=== PATIENT | female | born 1950 | race Hispanic/Latino ===

== ENCOUNTER 2017-06-26 08:08 | Inpatient (IN) | payer OTHER ==
[2017-06-26] MEDS ORDERED: Bupivacaine HCl 0.5%/Epinephrine 1:200,000/PF 30 ml Vial ONE (10:31)
[2017-06-26] MEDS ORDERED: Isosulfan Blue 50 MG/5 ML VIAL ONE (10:31)
[2017-06-26] MEDS ORDERED: Fentanyl 100 MCG/2 ML VIAL ONE (11:43)
[2017-06-26] MEDS ORDERED: Famotidine/PF 20 mg/2ml Vial ONE (11:43)
[2017-06-26] MEDS ORDERED: Ondansetron HCl/PF 4 MG/2 ML Vial ONE ×3 (11:43→11:55)
[2017-06-26] MEDS ORDERED: Dexamethasone 20 MG/5 ML VIAL ONE (11:55)
[2017-06-26] MEDS ORDERED: Ketorolac Tromethamine 30 MG/ML VIAL ONE (11:55)
[2017-06-26] MEDS ORDERED: Lidocaine 1% PF 5 ML VIAL ONE (11:55)
[2017-06-26] MEDS ORDERED: ePHEDrine/0.9% NaCl/PF SYRINGE 50 mg/10 ml ONE (11:55)
[2017-06-26] MEDS ORDERED: PHENYLEPHRINE-NS 100 MCG/ML 10 ML SYRINGE ONE (11:55)
[2017-06-26] MEDS ORDERED: Propofol 200 MG/20 ML VIAL ONE (11:55)
--- NOTE | 2017-06-26 13:16 | NM ---
RIGHT BREAST LYMPHOSCINTIGRAPHY: HISTORY: Malignant neoplasm of unspecified site of right female breast. TECHNIQUE: Right breast lymphoscintigraphy was performed following the right periareolar injection of 400 nithya curies of technetium 99m filtered sulfur colloid. Imaging of the neck, chest, and axillae, in the a nterior and lateral projections, was performed. FINDINGS: No tracer localization is noted in the axillary or internal mammary lymph nodes on either side. IMPRESSION: Nonvisualization of sentinel lymph node(S). POS: [facility]
[2017-06-26] MEDS ORDERED: Promethazine HCl 25 MG/ML VIAL SLOW IVP PRN (14:41)
[2017-06-26] MEDS ORDERED: HYDROmorphone 2 MG/ML VIAL SLOW IVP PRN (14:41)
[2017-06-26] MEDS ORDERED: Ondansetron HCl/PF 4 MG/2 ML Vial IVP PRN ×2 (14:41→16:39)
[2017-06-26] MEDS ORDERED: Meperidine HCl/PF 25 MG/ML VIAL SLOW IVP PRN (14:41)
[2017-06-26] MEDS ORDERED: Promethazine HCl 25 MG/ML VIAL ONE (14:54)
[2017-06-26] MEDS ORDERED: Dextrose 5% in Water 1,000 ML IV PRN (16:39)
[2017-06-26] MEDS ORDERED: Morphine Sulfate 2 MG/ML SYRINGE SLOW IVP PRN (16:39)
[2017-06-26] MEDS ORDERED: HYDROcodone/Acetaminophen 7.5/325 mg Tablet PO PRN ×2 (16:39)
[2017-06-26] MEDS ORDERED: Dextrose 50% Abboject 50 ML SYRINGE SLOW IVP PRN (16:39)
[2017-06-26] MEDS ORDERED: Promethazine HCl 25 MG/ML VIAL IM PRN (16:39)
[2017-06-26] MEDS: D5 1/2 NS w/20 mEq KCL 1,000 ML IV SCH (17:09)
[2017-06-26 17:57] VITALS: BMI 31.7
[2017-06-26] MEDS: Docusate 100 MG CAP PO SCH (21:41)
[2017-06-26] MEDS: Famotidine 20 MG TAB PO SCH (21:41)
[2017-06-27] MEDS: D5 1/2 NS w/20 mEq KCL 1,000 ML IV SCH (05:43)
[2017-06-27 06:25] LABS: #Lymphocytes 1.2 thou/uL (1.20-3.40); #Monocytes 0.6 thou/uL (0.11-0.59); #Neutrophils 9.1 thou/uL (1.40-6.50); %Basophils 0.1 % (0.0-1.0); %Lymphocytes 10.7 % (21.0-51.0); %Monocytes 5.8 % (0.0-10.0); Mean Platelet Volume 9.2 fL (7.4-10.4); Red Blood Cell (RBC) Count 3.35 mill/uL (4.20-5.40); White Blood Cell (WBC) Count 10.9 thou/uL (4.8-10.8)
[2017-06-27 08:39] VITALS: BP 132/70; TEMP 98
[2017-06-27] MEDS: Docusate 100 MG CAP PO SCH (08:42)
[2017-06-27] MEDS: Famotidine 20 MG TAB PO SCH (08:42)
--- NOTE | 2017-06-28 12:44 | OP ---
DATE OF OPERATION: 06/26/2017 PREOPERATIVE DIAGNOSIS: Right breast cancer. POSTOPERATIVE DIAGNOSIS: Right breast cancer with inability to find sentinel lymph nodes. OPERATION PERFORMED: Right modified radical mastectomy. SURGEON: Felipe Head M.D. ANESTHESIA: General endotracheal. INDICATIONS: The patient is a 67-year-old female. She was diagnosed with a large easily p alpable right breast cancer. After discussing options, she elected to proceed with mastectomy and s entinel lymph node biopsy. She has undergone lymphoscintigraphy before surgery, but this did not re veal definite sentinel lymph nodes here. DESCRIPTION OF OPERATION: Informed consent was obtained. The patient taken to the operating room w here general endotracheal anesthesia was obtained with the patient in supine position. Right breast and axilla were prepped with ChloraPrep and draped in sterile fashion. A 3 mL of Lymphazurin was i nfiltrated in the periareolar subdermal tissue and the area was massaged for five minutes. Elliptic al incision was created over the right breast including the nipple areolar complex and extending lat erally towards the inferior axilla. Through this incision, the axilla was inspected with Neoprobe w ithout finding of any substantial increased radioactivity. Additional dissection was carried out mobilizing the lateral aspects of the upper and lower flaps in to the axilla. I again inspected with the Neoprobe and examined for blue dye and found essentially none. I, therefore, decided to proceed with a full axillary node dissection in continuity with the mastectomy. Flaps were raised superiorly and inferiorly. Dissection was carried down to the chest wall the medi al aspect and the breast was swept off of the chest wall in medial to lateral fashion. The lateral aspect of the pectoralis muscles dissection was carried superiorly to identify the axillary vein. O n the inferior aspect of the axillary vein, I identified both the thoracodorsal and long thoracic ne rves, these were carefully spared of any injury. All fatty and lymphatic tissue was swept out of th e axilla as inferiorly and in continuity with the mastectomy specimen. The specimen was tagged for orientation and submitted to pathology. Meticulous hemostasis was obtained within wound using elect rocautery. The wound was thoroughly irrigated and all irrigant was aspirated. Two separate #19 rou nd fluted drains were placed within the wound, one up within the axilla and one across the chest wal l. The drains were secured externally with 3-0 nylon suture. The mastectomy flaps were then tailor ed for optimum closure. 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 The wound was then closed in la yers with 3-0 Vicryl and skin elin. Xeroform gauze was placed externally followed by fluffed gau ze and Jose Elias wrap dressing. There were no complications. The patient tolerated the procedure well an d was taken to recovery in stable condition.
--- NOTE | 2017-06-29 22:32 | PQF ---
Kecia De Los Santos YUDI RODGERS MANAGER PROFESSIONAL DEVELOPMENT [id number] CLINICAL DOCUMENTATION CLARIFICATION FORM: POST DISCHARGE Addendum to original discharge summary date: ____ Late entry note date: __ Query date: 06/29/17 In the impression of the pathology report, 11/21 LYMPH NODES POSITVE _ is documented. QUERY: Do you agree with the pathology report specifying ? Please document your response in the health record or below. Yes No Other Physician/Provider response: Condition not applicable No additional documentation or clarification can be provided. Physician/Provider signature/date/time (This form is maintained as a part of the permanent medical record) 2014 [employer] All Rights Reserved RACHEL Schmidt, CCS [email or web address]
== END 2017-06-27 10:45 | disposition home or self-care (01) | DRG 583 ==
LOC: SDC 08:08 → SURG A 14:45
PROVIDERS: ADMIT Specialist; ATTEND Specialist
PROC: 0HTT0ZZ Resection of Right Breast, Open Approach (ICD-10-PCS; principal; 2017-06-26)
DX: C50.911 Malignant neoplasm of unspecified site of right female breast (principal)
CPT/HCPCS: 36415; 78195; 85025; 88309; 90471; 90732; A9541; G0009; J0131; J0670; J1100; J1885; J2001; J2405; J2550; J2704; J3010; Q9968; S0028

== ENCOUNTER 2017-07-26 09:08 | Outpatient (CLI) | payer OTHER ==
--- NOTE | 2017-07-26 10:18 | CT ---
CT CHEST WITH CONTRAST CT ABDOMEN WITH CONTRAST CT PELVIS WITH CONTRAST 07/26/17 HISTORY: Breast cancer. Recent mastectomy. Followup. COMPARISON: None. FINDINGS: Inferior lingula has a 5 mm nodule, series 3, image 30. There is an organoaxial volvulus which is ch ronic in nature with the entire stomach within the thoracic cavity through a large posterior diaphra gmatic hernia. There is some atelectatic change in the lung bases. Prior right mastectomy. Small seroma on the anterior chest wall. The sternum does not have a normal horizontal axis, likely congenital in nature with the craniad nury rnum left border lower than the right side. No suspicious lytic or blastic lesion of the skeleton. N o displaced rib fractures. Surgical clips in the right axilla. There is a small hypodensity posterior cortex interpole left kidney measuring 8 mm and fluid attenua tion. No hydronephrosis. Adjacent to the sigmoid colon, there are multiple diverticula with area of peripheral enhancement wh ich may represent lymph node or resolving infection such as diverticulitis, series 2, image 97. No dilated loops of large or small bowel. Pancreas, spleen, and liver are unremarkable. Prior cholec ystectomy. The aortoiliac contour is nonaneurysmal. Superficial soft tissues are unremarkable. Small granuloma of the right posterior buttocks. IMPRESSION: 1. 5 mm nodule inferior lingula. Given the patient's history, metastatic disease cannot be excl uded and followup CT in 3-6 months is recommended. 2. Organoaxial volvulus, chronic, through a large diaphragmatic herniation. This is nonobstruct ed as contrast is seen throughout the small bowel. 3. Small seroma from mastectomy changes along the right anterior chest wall, series 2, image 29 . 4. Small either lymph node or focal area of resolving inflammation along the sigmoid colon mese ntery, series 2, image 97 with adjacent diverticulum, may be sequela of recent infection such as div erticulitis or inflamed lymph node. Close attention on followup imaging is recommended. Code T POS: [facility]
[2017-07-26] MEDS ORDERED: Iopamidol 370 76% 100 ML VIAL ONE (13:40)
--- NOTE | 2017-07-26 14:03 | NM ---
BONE SCAN: COMPARISON: CT of the chest, abdomen, and pelvis 07/26/17. HISTORY: Right breast cancer. Evaluate for metastatic disease. TECHNIQUE: A whole body bone scan was performed after administration of 31.4 mCi of Technetium 99m-MDP. FINDINGS: Uptake is seen in both patella and in both feet likely secondary to degenerative change. No suspici ous areas of uptake are seen within the skeleton to suggest osseous metastatic disease. Soft tissue activity is unremarkable. IMPRESSION: No evidence of osseous metastatic disease. POS: [facility]
== END 2017-07-26 09:09 | disposition home or self-care (01) ==
LOC: CT 09:08
PROVIDERS: ATTEND Internal Medicine Hematology & Oncology
DX: C50.919 Malignant neoplasm of unspecified site of unspecified female breast (principal); K44.9 Diaphragmatic hernia without obstruction or gangrene; N63.0 Unspecified lump in unspecified breast
CPT/HCPCS: 71260; 74177; 78306; A9503

== ENCOUNTER 2017-08-09 13:29 | Outpatient (CLI) | payer OTHER ==
[2017-08-09 16:44] LABS: #Basophils 0.1 thou/uL (0.0-0.2); #Eosinphils 0.4 thou/uL (0.0-0.7); #Lymphocytes 2.5 thou/uL (1.20-3.40); #Monocytes 0.5 thou/uL (0.11-0.59); #Neutrophils 3.9 thou/uL (1.40-6.50); %Eosinophils 5.7 % (0.0-10.0); %Lymphocytes 33.8 % (21.0-51.0); %Monocytes 6.6 % (0.0-10.0); Hematocrit 38.4 % (36.0-47.0); Mean Platelet Volume 9.5 fL (7.4-10.4); Red Blood Cell (RBC) Count 3.95 mill/uL (4.20-5.40); White Blood Cell (WBC) Count 7.3 thou/uL (4.8-10.8)
[2017-08-09 16:58] LABS: Anion Gap 9 mmol/L (10-20); BUN (Urea Nitrogen) 15 mg/dL (9.8-20.1); Calc. Creatinine Clearance 0 mL/min (70-130); Calcium 9.2 mg/dL (7.8-10.44); Carbon Dioxide 30 mmol/L (23-31); Chloride 109 mmol/L (98-107); Estimated GFR-MDRD 79
== END 2017-08-09 13:30 | disposition home or self-care (01) ==
LOC: LABBT 13:29
PROVIDERS: ATTEND Specialist
DX: Z01.812 Encounter for preprocedural laboratory examination (principal); C50.911 Malignant neoplasm of unspecified site of right female breast
CPT/HCPCS: 80048; 85025

== ENCOUNTER → 2017-08-14 | Day surgery (SDC) | payer OTHER, SELFPAY ==
[2017-08-09 14:10] VITALS: BMI 32.5
[~2017-08-14] MED LIST: Bupivacaine/Epinephrine 0.25% 30 ML VIAL ONE; CEFAZOLIN/Water 2 GM/20 ML SYRINGE ONE; CYCLOPHOSPHAMIDE IVPB SCH; DEXAMETHASONE IVPB SCH; DOCEtaxel 140 MG in Sodium Chloride 0.9% 250 ML 250 ML IVPB SCH; Diprivan 40 ML ONE; Fentanyl 100 MCG/2 ML VIAL ONE; Lidocaine 1% (PF) 30 ML VIAL ONE; Lidocaine 2% PF 10 ML AMP (For Epidural Use) ONE; Midazolam HCl 2 mg/2 ml Vial ONE; ONDANSETRON HCL IVPB SCH; Propofol 200 MG/20 ML VIAL ONE; SODIUM CHLORIDE 0.9% IVPB SCH
--- NOTE | 2017-08-14 19:00 | RAD ---
INTRAOPERATIVE FLUOROSCOPIC SPOT IMAGES 08/14/17 Image total: 14 Fluoroscopic time: 0.10 seconds. Chemo dose: 2.38 mGy. FINDINGS: Submitted fluoroscopic images demonstrate wire placement within the left subclavian vein extending i nto the region of the right atrium. Subsequent images demonstrate placement of a left subclavian arie st wall port. Tip of the catheter is not included in the field of view but projects in the region of the cavoatrial junction. IMPRESSION: Intraoperative C-arm images for left subclavian chest wall port placement. The tip of the catheter i s not well seen. Recommend chest radiograph for further evaluation. POS: [facility]
--- NOTE | 2017-08-14 19:20 | RAD ---
SINGLE VIEW OF THE CHEST 08/14/17 INDICATION: Status post Mediport placement. FINDINGS: There is a left subclavian chest wall Mediport. Tip of the catheter is seen within the right atrium. There is a prominent opacity within the left lower lobe which may reflect volume loss from a large hiatal hernia. No pneumothorax is evident. No acute osseous abnormality is noted. IMPRESSION: 1. Left subclavian chest wall Mediport without evidence of a pneumothorax. 2. Opacity within the left lower lobe may reflect volume loss from a large hiatal hernia. POS: [facility]
--- NOTE | 2017-08-15 13:03 | OP ---
DATE OF PROCEDURE: 08/14/2017 PREOPERATIVE DIAGNOSIS: Breast cancer. POSTOPERATIVE DIAGNOSIS: Breast cancer. OPERATION PERFORMED: Placement of left subclavian vein standard sized power compatible MediPort. SURGEON: Felipe Head M.D. ANESTHESIA: Total intravenous anesthesia with local using 0.25% Marcaine with epinephrine. INDICATIONS: The patient is a 67-year-old female. She has right breast cancer for which s he has already undergone a mastectomy. She requires MediPort placement for continued chemotherapy. OPERATIVE PROCEDURE IN DETAIL: Informed consent was obtained. The patient taken to the operating r oom where total intravenous anesthesia was obtained with the patient in supine position. Left peric lavicular area was prepped with ChloraPrep and draped in sterile fashion. Local anesthetic was infi ltrated and a large gauge needle was passed in the clavicle and subclavian vein on the initial pass. Guidewire was passed through the needle and fluoroscopically confirmed to enter the superior vena cava. Additional local anesthetic was infiltrated and a transverse incision was created based on ne edle insertion site. Subcutaneous pocket was dissected. Introducer dilator was passed over the rodrigo dewire under fluoroscopic guidance and the guidewire was removed. Catheter was passed through the i ntroducer and the tip was positioned at the atriocaval junction. Catheter was trimmed to appropriat e length and secured to the locking hub of the MediPort. The port was secured to the pectoral fasci a with 2 interrupted sutures of 3-0 Prolene. The wound was closed in layers with 3-0 and 4-0 Monocr yl. The port was accessed and aspirated blood freely and was flushed with heparinized saline. Derm abond was placed externally. There were no complications. The patient tolerated the procedure well and was taken to recovery room in stable condition. Post-procedure chest x-ray documents good posi tion of the port and catheter.
== END ==
LOC: SDC 09:00
PROVIDERS: ATTEND Specialist
PROC: 0JH63WZ Insertion of Totally Implantable Vascular Access Device into Chest Subcutaneous Tissue and Fascia, Percutaneous Approach (ICD-10-PCS; principal; 2017-08-14)
DX: C50.911 Malignant neoplasm of unspecified site of right female breast (principal); R91.1 Solitary pulmonary nodule; Z17.0 Estrogen receptor positive status [ER+]; Z90.11 Acquired absence of right breast and nipple; Z90.49 Acquired absence of other specified parts of digestive tract
CPT/HCPCS: 71010; J1100; J1642; J2001; J2250; J2405; J2704; J3010; J7050; J9070; J9171

== ENCOUNTER 2017-09-04 10:18 | Day surgery (SDC) | payer OTHER ==
[2017-09-04] MEDS ORDERED: SODIUM CHLORIDE IVPB SCH (10:45)
[2017-09-04] MEDS ORDERED: ONDANSETRON IVP SCH (10:45)
[2017-09-04] MEDS ORDERED: [UNRECOGNIZED DRUG - OTHER] IVPB SCH (10:45)
[2017-09-04] MEDS ORDERED: ADMIXTURE FEE IVPB SCH ×2 (10:45)
[2017-09-04] MEDS ORDERED: [UNRECOGNIZED DRUG - OTHER] IVP SCH (10:45)
[2017-09-04] MEDS ORDERED: ADMIXTURE FEE IVP SCH (10:45)
[2017-09-04] MEDS ORDERED: DOCETAXEL IVPB SCH (10:45)
[2017-09-04] MEDS ORDERED: DEXAMETHASONE IVP SCH (10:45)
[2017-09-04] MEDS ORDERED: CYCLOPHOSPHAMIDE IVPB SCH (10:45)
[2017-09-04 11:17] VITALS: BP 115/67; TEMP 98.1
== END 2017-09-04 15:10 | disposition home or self-care (01) ==
LOC: ONC/OP 10:18
PROVIDERS: ATTEND Internal Medicine Hematology & Oncology
DX: Z51.11 Encounter for antineoplastic chemotherapy (principal); C50.411 Malignant neoplasm of upper-outer quadrant of right female breast; Z90.10 Acquired absence of unspecified breast and nipple; Z90.49 Acquired absence of other specified parts of digestive tract; Z17.0 Estrogen receptor positive status [ER+]
CPT/HCPCS: 96367; 96413; 96417; J1100; J2405; J7050; J9070; J9171

== ENCOUNTER 2017-09-07 12:58 | Outpatient (CLI) | payer OTHER ==
--- NOTE | 2017-09-07 15:28 | ULT ---
BILATERAL UPPER EXTREMITY VENOUS DUPLEX SONOGRAM: FINDINGS: Each internal jugular and subclavian vein and axillary vein are evaluated. There is good color and sp ectral doppler flow, compression, and augmentation. IMPRESSION: No sonographic evidence of DVT within either upper extremity. POS: [facility]
--- NOTE | 2017-09-07 15:51 | RAD ---
PA AND LATERAL CHEST XRAY: DATE: 09/07/17. HISTORY: Post MediPort catheter insertion. FINDINGS: Compared to the study on 08/14/17. FINDINGS: Left subclavian MediPort catheter is noted in place with the tip overlying the region of the cavoatri al junction. There is a large hiatal hernia again seen with atelectasis at the left lung base. The lungs are otherwise clear, no pneumothorax or pleural effusion is present. Surgical clips are seen i n the right axillary region, and there is a suggestion of right mastectomy. Vascular calcification s een in the thoracic aorta. No other findings. IMPRESSION: 1. Left subclavian MediPort catheter in place without evidence of a pneumothorax. 2. Large hiatal hernia with minimal atelectasis left lung base. POS: [facility]
== END 2017-09-07 12:59 | disposition home or self-care (01) ==
LOC: ULT 12:58
PROVIDERS: ATTEND Specialist
DX: C50.911 Malignant neoplasm of unspecified site of right female breast (principal); K44.9 Diaphragmatic hernia without obstruction or gangrene
CPT/HCPCS: 71020

== ENCOUNTER 2017-09-25 10:09 | Day surgery (SDC) | payer OTHER, SELFPAY ==
[2017-09-25] MEDS ORDERED: Sodium Chloride 0.9% 20 ML ONE (10:21)
[2017-09-25 10:34] VITALS: BP 118/91; TEMP 98.2
[2017-09-25] MEDS ORDERED: DOCEtaxel 140 MG in Sodium Chloride 0.9% 250 ML 250 ML IVPB SCH (11:00)
[2017-09-25] MEDS ORDERED: ONDANSETRON HCL IVPB SCH (11:00)
[2017-09-25] MEDS ORDERED: SODIUM CHLORIDE 0.9% IVPB SCH ×3 (11:00→11:15)
[2017-09-25] MEDS ORDERED: CYCLOPHOSPHAMIDE IVPB SCH (11:00)
[2017-09-25] MEDS ORDERED: Dexamethasone 10 MG in Sodium Chloride 0.9% 50 ML IVPB SCH (11:00)
[2017-09-25] MEDS ORDERED: ONDANSETRON IVPB SCH (11:15)
[2017-09-25] MEDS ORDERED: DEXAMETHASONE IVPB SCH (11:15)
== END 2017-09-25 14:09 | disposition home or self-care (01) ==
LOC: ONC/OP 10:09
PROVIDERS: ATTEND Internal Medicine Hematology & Oncology
DX: Z51.11 Encounter for antineoplastic chemotherapy (principal); C50.411 Malignant neoplasm of upper-outer quadrant of right female breast; Z17.0 Estrogen receptor positive status [ER+]; Z98.890 Other specified postprocedural states
CPT/HCPCS: 96367; 96413; 96417; A4216; J1100; J1642; J2405; J7050; J9070; J9171

== ENCOUNTER 2017-10-16 11:50 | Day surgery (SDC) | payer OTHER, SELFPAY ==
[2017-10-16] MEDS ORDERED: SODIUM CHLORIDE 0.9% IVPB SCH ×9 (12:00→12:15)
[2017-10-16] MEDS ORDERED: ONDANSETRON IVPB SCH ×2 (12:00→12:15)
[2017-10-16] MEDS ORDERED: Dexamethasone 10 MG in Sodium Chloride 0.9% 50 ML IVPB SCH (12:00)
[2017-10-16] MEDS ORDERED: DOCEtaxel 140 MG in Sodium Chloride 0.9% 250 ML 250 ML IVPB SCH (12:00)
[2017-10-16 12:06] VITALS: BP 107/67; TEMP 98.4
[2017-10-16] MEDS ORDERED: DEXAMETHASONE IVPB SCH (12:15)
[2017-10-16] MEDS ORDERED: CYCLOPHOSPHAMIDE IVPB SCH ×7 (12:15)
== END 2017-10-16 15:59 | disposition home or self-care (01) ==
LOC: ONC/OP 11:50
PROVIDERS: ATTEND Internal Medicine Hematology & Oncology
DX: Z51.11 Encounter for antineoplastic chemotherapy (principal); C50.411 Malignant neoplasm of upper-outer quadrant of right female breast; K57.92 Diverticulitis of intestine, part unspecified, without perforation or abscess without bleeding; K52.9 Noninfective gastroenteritis and colitis, unspecified; Z17.0 Estrogen receptor positive status [ER+]
CPT/HCPCS: 96367; 96413; 96417; J1100; J2405; J7050; J9070; J9171

== ENCOUNTER 2017-10-25 09:17 | Outpatient (CLI) | payer OTHER, SELFPAY ==
[2017-10-25] MEDS ORDERED: Iopamidol 370 76% 100 ML VIAL ONE (16:26)
== END 2017-10-25 09:18 | disposition home or self-care (01) ==
LOC: BICCT 09:17
PROVIDERS: ATTEND Internal Medicine Hematology & Oncology
DX: C50.411 Malignant neoplasm of upper-outer quadrant of right female breast (principal); R91.8 Other nonspecific abnormal finding of lung field; K31.89 Other diseases of stomach and duodenum; K44.9 Diaphragmatic hernia without obstruction or gangrene; Z90.49 Acquired absence of other specified parts of digestive tract; Z90.11 Acquired absence of right breast and nipple
CPT/HCPCS: 71260

== ENCOUNTER 2018-03-13 12:23 | Outpatient (CLI) | payer OTHER, SELFPAY ==
[2018-03-13 13:55] LABS: #Eosinphils 0.2 thou/uL (0.0-0.7); #Lymphocytes 1.2 thou/uL (1.20-3.40); #Monocytes 0.3 thou/uL (0.11-0.59); #Neutrophils 3.3 thou/uL (1.40-6.50); %Basophils 0.2 % (0.0-1.0); %Eosinophils 4.6 % (0.0-10.0); %Lymphocytes 23.6 % (21.0-51.0); %Monocytes 6.7 % (0.0-10.0); %Neutrophils 64.9 % (42.0-75.0); Hemoglobin 12.4 g/dL (12.0-16.0); Mean Corpuscular HGB CONC 33.4 g/dL (32.0-36.0); Mean Corpuscular Hemoglobin 29.6 pg (27.0-31.0); Mean Corpuscular Volume 88.7 fl (81.0-99.0); Mean Platelet Volume 7.6 fL (7.4-10.4); Platelet Count 276 thou/uL (130-400); RBC Distribution Width 14.2 % (11.5-14.5); Red Blood Cell (RBC) Count 4.19 mill/uL (4.20-5.40); White Blood Cell (WBC) Count 5.1 thou/uL (4.8-10.8)
[2018-03-13 14:13] LABS: Anion Gap 11 mmol/L (10-20); BUN (Urea Nitrogen) 15 mg/dL (9.8-20.1); Calc. Creatinine Clearance 0 mL/min (70-130); Calcium 9.9 mg/dL (7.8-10.44); Carbon Dioxide 28 mmol/L (23-31); Chloride 105 mmol/L (98-107); Estimated GFR-MDRD 68; Glucose 92 mg/dL (80-115); Potassium 4.1 mmol/L (3.5-5.1); Sodium 140 mmol/L (136-145)
== END 2018-03-13 12:24 | disposition home or self-care (01) ==
LOC: LABBT 12:23
PROVIDERS: ATTEND Specialist
DX: Z01.812 Encounter for preprocedural laboratory examination (principal); K31.89 Other diseases of stomach and duodenum
CPT/HCPCS: 80048; 85025

== ENCOUNTER 2018-03-19 10:07 | Inpatient (IN) | payer OTHER, SELFPAY ==
[2018-03-13 13:30] VITALS: BMI 31.6
[2018-03-19] MEDS ORDERED: Ketorolac Tromethamine 30 MG/ML VIAL ONE ×2 (11:02→17:53)
[2018-03-19] MEDS ORDERED: Scopolamine 1.5 mg/72 hour Patch ONE (11:03)
[2018-03-19] MEDS ORDERED: CEFAZOLIN/Water 2 GM/20 ML SYRINGE ONE (11:03)
[2018-03-19] MEDS ORDERED: PHENYLEPHRINE-NS 100 MCG/ML 10 ML SYRINGE ONE (13:30)
[2018-03-19] MEDS ORDERED: Glycopyrrolate 0.2 MG/ML 5 ML SYRINGE ONE (13:30)
[2018-03-19] MEDS ORDERED: Succinylcholine Chloride 20 MG/ML 10 ml SYRINGE FS ONE (13:30)
[2018-03-19] MEDS ORDERED: ePHEDrine/0.9% NaCl/PF SYRINGE 50 mg/10 ml ONE (13:30)
[2018-03-19] MEDS ORDERED: Dexamethasone 20 MG/5 ML VIAL ONE (13:30)
[2018-03-19] MEDS ORDERED: PROPOFOL 200 MG/20 ML VIAL ONE (13:30)
[2018-03-19] MEDS ORDERED: Ondansetron HCl/PF 4 MG/2 ML Vial ONE (13:30)
[2018-03-19] MEDS ORDERED: Fentanyl 100 MCG/2 ML VIAL ONE (14:16)
[2018-03-19] MEDS ORDERED: HYDROmorphone 0.5 MG/0.5 ML SYRINGE ONE (14:16)
[2018-03-19] MEDS ORDERED: Bupivacaine/Epinephrine 0.25% 30 ML VIAL ONE (14:25)
[2018-03-19] MEDS ORDERED: Phenylephrine HCL 10 MG/ML VIAL ONE (16:56)
[2018-03-19] MEDS ORDERED: Promethazine HCl 25 MG/ML VIAL SLOW IVP PRN (17:41)
[2018-03-19] MEDS ORDERED: Ondansetron HCl/PF 4 MG/2 ML Vial IVP PRN ×2 (17:41→18:03)
[2018-03-19] MEDS ORDERED: Promethazine HCl 25 MG/ML VIAL IM PRN ×2 (17:41→18:03)
[2018-03-19] MEDS ORDERED: hydrALAZINE 20 MG/ML VIAL SLOW IVP PRN (18:03)
[2018-03-19] MEDS ORDERED: Morphine 4 MG/ML Carpuject SLOW IVP PRN (18:03)
[2018-03-19] MEDS: Ketorolac Tromethamine 30 MG/ML VIAL IVP SCH (19:03)
[2018-03-19] MEDS: Acetaminophen 1,000 MG in Premix Bag 1 BAG IVPB SCH (19:03)
[2018-03-19] MEDS: Famotidine/PF 20 mg/2ml Vial SLOW IVP SCH (21:25)
[2018-03-20] MEDS: Ketorolac Tromethamine 30 MG/ML VIAL IVP SCH ×3 (00:28→13:12)
[2018-03-20] MEDS: Acetaminophen 1,000 MG in Premix Bag 1 BAG IVPB SCH ×3 (00:29→13:12)
[2018-03-20] MEDS: D5 1/2 NS w/20 mEq KCL 1,000 ML IV SCH ×3 (00:29→09:46)
[2018-03-20] MEDS: Famotidine 20 MG TAB PO SCH ×2 (00:36→09:29)
--- NOTE | 2018-03-20 02:18 | OP ---
DATE OF OPERATION: 03/19/2018 PREOPERATIVE DIAGNOSIS: Large hiatal hernia with the entire stomach present within the mediastinum. POSTOPERATIVE DIAGNOSIS: Large hiatal hernia with the entire stomach present within the mediastinum OPERATION PERFORMED: A laparoscopic Kota fundoplication with repair of paraesophageal hiatal herni a. SURGEON: Felipe Head MD ANESTHESIA: General endotracheal. INDICATIONS: The patient is a 68-year-old female. She has imaging studies and endoscopy pe rformed recently, which shows a large hiatal hernia with the entire stomach present within the medias tinum. She was taken to the operating room at this time for repair. DESCRIPTION OF OPERATION: Informed consent was obtained. The patient was taken to the operating catherine m where general endotracheal anesthesia was obtained with the patient in supine position. Legs were split. Abdomen was prepped with ChloraPrep and draped in sterile fashion between the patient's legs during the course of the operation. Local anesthetic was infiltrated and a 5-mm supraumbilical incision was created through which a Veress needle was passed via the peritoneal cavity. Pneumoperi toneum established using carbon dioxide up to a pressure of 15 mmHg. A 5-mm trocar was passed throug h this same incision. Laparoscopic camera was passed through this port. Under direct vision, 4 kitty tional ports were placed including bilateral subcostal 5-mm ports, 11-mm left epigastric port, and a 5-mm right epigastric port. Beatty snake retractor was passed in the abdomen and used to elevate the left lobe of the liver usi ng the Amos's arm. The hiatus was examined and the entire stomach was present up within the medias tinum. It was mobile and I was able to grasp this and reduce the hernia contents. There was also ex tensive omentum and a very large and complex hernia sac presented on both the right and left mediasti num. I began my dissection on the lesser curve by incising the pars flaccida. Dissection was carried down onto the right cas. Dissection was then carried along the cas to mobilize the hernia sac medially . Dissection was then carried anteriorly along the hiatus again mobilized in the hernia sac. Along the left-hand side, the anatomy was much more complex. I, therefore, decided to take down the upper third of the greater curvature using the LigaSure device. I then mobilized adhesions away from the l eft cas. I was eventually able to identify the left cas and the left side of the hernia sac. The hernia sac was reduced from within the mediastinum using a combination of blunt and sharp dissection with the LigaSure. When this was completely reduced, the hernia sac was excised in its entirety and removed from within the abdomen. The herniated omental tissue was excised as well. I was able to perform a retroesophageal dissection and place a Enfield drain. I was able to complete ly mobilize the esophagus from up in the mediastinum. The left pleura was incised in order to facili kirby mobilization. The Enfield drain was used to retract the esophagus and stomach. Both crura were carefully and clearly dissected. The hiatus was closed with 3 interrupted sutures of 0 Bralon placed with the EndoStitch device. This was done after a #50 bougie was easily passed down into the stomach. The closure was appropriately snug around the esophagus. The fundus of the stomach was then passed through the large retroesophageal window. A floppy wrap wa s constructed by placing 3 sutures of 0 Bralon between the fundus that was wrapped around the stomach and the anterior fundus on the left side. The bottom and the superior sutures also incorporated bit es of the anterior esophagus. The wrap was very loose. I then fixated the wrap with three additional sutures of 0 Bralon, placing collar sutures between the wrap and the hiatus at the 10:30 in the 1:30 radians and a posterior gastropexy between the posterio r wrap and the crural closure posteriorly. The wrap was intact and of excellent confirmation. There has never been any blood loss during the co urse of the operation. There were no complications. Both the gastric reduction into the abdomen and the curl approximation was performed a tension-free. The fascia at the 11-mm port site was closed with 0 Vicryl suture using a GraNee needle. The area wa s irrigated. All irrigant was aspirated. The snake retractor was removed. All ports and instrument s were removed under direct vision. Pneumoperitoneum was carefully evacuated. A 0.25% Marcaine with epinephrine was infiltrated at each port site. Skin edges approximated with 4-0 Monocryl subcuticul ar suture. Dermabond was placed externally. There were no complications. The patient tolerated the procedure well and was taken to recovery room in stable condition.
[2018-03-20 04:20] LABS: #Lymphocytes 0.7 thou/uL (1.20-3.40); #Monocytes 0.4 thou/uL (0.11-0.59); #Neutrophils 9.1 thou/uL (1.40-6.50); %Eosinophils 0.1 % (0.0-10.0); %Lymphocytes 6.7 % (21.0-51.0); %Monocytes 3.4 % (0.0-10.0); %Neutrophils 89.8 % (42.0-75.0); Mean Corpuscular HGB CONC 33.1 g/dL (32.0-36.0); Mean Corpuscular Hemoglobin 29.9 pg (27.0-31.0); Mean Corpuscular Volume 90.3 fl (81.0-99.0); Mean Platelet Volume 8.1 fL (7.4-10.4); Platelet Count 229 thou/uL (130-400); RBC Distribution Width 14.1 % (11.5-14.5); Red Blood Cell (RBC) Count 3.67 mill/uL (4.20-5.40); White Blood Cell (WBC) Count 10.2 thou/uL (4.8-10.8)
[2018-03-20 04:42] LABS: Anion Gap 12 mmol/L (10-20); BUN (Urea Nitrogen) 14 mg/dL (9.8-20.1); Calc. Creatinine Clearance 99 mL/min (70-130); Calcium 9.4 mg/dL (7.8-10.44); Carbon Dioxide 26 mmol/L (23-31); Chloride 103 mmol/L (98-107); Estimated GFR-MDRD 76; Glucose 195 mg/dL (80-115); Potassium 4.3 mmol/L (3.5-5.1); Sodium 137 mmol/L (136-145)
[2018-03-20] MEDS ORDERED: Enoxaparin Sodium 30 MG/0.3 ML SYRINGE SC SCH (09:00)
[2018-03-20] MEDS: Famotidine/PF 20 mg/2ml Vial SLOW IVP SCH (09:20)
[2018-03-20 12:03] VITALS: BP 115/77; TEMP 98
[2018-03-21] MEDS ORDERED: Enoxaparin Sodium 40 MG/0.4 ML SYRINGE SC SCH (09:00)
== END 2018-03-20 13:21 | disposition home or self-care (01) | DRG 328 ==
LOC: SDC 10:07 → SURG A 18:03
PROVIDERS: ADMIT Specialist; ATTEND Specialist
PROC: 0DV44ZZ Restriction of Esophagogastric Junction, Percutaneous Endoscopic Approach (ICD-10-PCS; principal; 2018-03-19)
PROC: 0BQT4ZZ Repair Diaphragm, Percutaneous Endoscopic Approach (ICD-10-PCS; 2018-03-19)
DX: K31.89 Other diseases of stomach and duodenum (principal); K44.9 Diaphragmatic hernia without obstruction or gangrene; Z85.3 Personal history of malignant neoplasm of breast; Z90.11 Acquired absence of right breast and nipple; Z86.010 Personal history of colon polyps
CPT/HCPCS: 36415; 80048; 85025; J0131; J1100; J1170; J1642; J1885; J2370; J2405; J2704; J3010; S0028

== ENCOUNTER 2018-04-23 08:39 | Outpatient (CLI) | payer OTHER ==
--- NOTE | 2018-04-23 10:37 | CT ---
CT CHEST WITH CONTRAST: CLINICAL HISTORY: Breast cancer restaging. COMPARISON: Comparison is made to prior CT 07/26/17. FINDINGS: The previously documented 5 mm lingular nodule is grossly stable. There has been development of a re gion of consolidation at the posteromedial right lower lobe which contains air bronchograms. Prior c ystic lesion of this region has progressed in volume approximately 2.2 cm in size with a meniscal flu id level. This may relate to a pneumatocele, although other etiologies for cavitary lesion are not e xcluded. There is newly developed subpleural ground-glass density of the anterior right chest, likel y radiation pneumonitis. Inferiorly at the anterior chest there is a newly developed cystic lesion o f the anterior right lung which may relate to an additional pneumatocele versus other cavitary lesion . No evidence of significant pleural fluid or pneumothorax. There are nonspecific borderline-sized mediastinal lymph nodes, without evidence of pathologic enlargement. Surgical clips of the right axi lla are present. There has been interval surgical correction of prior hiatal hernia with metallic cl ips at the left upper central abdomen. No acute osseous abnormality. Stable left renal cyst is inci dentally noted. IMPRESSION: 1. Stable 5 mm lingular nodule. 2. Size progression of a cystic lesion of the posteromedial right lung which contains a meniscal flu id level, surrounded by a newly developed consolidation that contains air bronchograms. This may be on the basis of an area of radiation pneumonitis with associated pneumatocele versus infectious/infla mmatory process. There is an additional newly developed cystic lesion of the anterior and inferior r ight lung adjacent findings compatible with radiation pneumonitis. This may reflect an additional si te of pneumatocele. For the cystic lesions, recommend continued imaging followup, as a conservative measure at which time the 5 mm lingular nodule may also be reimaged. A 6-month followup would be joey sonable. POS: [facility]
[2018-04-23] MEDS ORDERED: Iopamidol 370 76% 100 ML VIAL ONE (12:27)
== END 2018-04-23 08:40 | disposition home or self-care (01) ==
LOC: CT 08:39
PROVIDERS: ATTEND Internal Medicine Hematology & Oncology
DX: C50.919 Malignant neoplasm of unspecified site of unspecified female breast (principal); R91.1 Solitary pulmonary nodule
CPT/HCPCS: 71260; 82565

== ENCOUNTER 2018-06-26 10:28 | Outpatient (CLI) | payer OTHER | END 2018-06-26 10:29 | disposition home or self-care (01) | LOC: BICMAMMO 10:28 | PROVIDERS: ATTEND Specialist | DX: Z08 Encounter for follow-up examination after completed treatment for malignant neoplasm (principal); R92.1 Mammographic calcification found on diagnostic imaging of breast; Z85.3 Personal history of malignant neoplasm of breast | CPT/HCPCS: G0279 ==

== ENCOUNTER 2018-09-03 13:00 | Outpatient (CLI) | payer OTHER ==
--- NOTE | 2018-09-03 17:44 | CT ---
CT OF THE THORAX WITH IV CONTRAST: 09/03/18 INDICATION: Followup pulmonary nodule with history of breast cancer and right mastectomy. COMPARISON: Prior CT of thorax dated 04/23/18, 10/25/[address] of the chest, abdomen and pelvis dated 07/26/17. FINDINGS: The previously seen 5 mm lingular pulmonary nodule is stable. Air space consolidation of the right lo wer lobe is improved. There is some residual bronchiectasis and subsegmental atelectasis within the m edial right lower lobe. The hiatal hernia and chronic appearing changes of a prior fundoplication are again noted. No new pulmonary nodules evident. Postsurgical changes of the right mastectomy and left chest wall port is in place. The vascular calcifications involving the coronary arteries and thoraci c aorta is similar appearing. Adrenal glands are normal appearing. There is mild fatty infiltration o f the liver. Spleen and visualized pancreas are unremarkable. IMPRESSION: There is diffuse osteopenia. There is scattered degenerative and osteoarthritic change. IMPRESSION: 1. Stable 5 mm lingular pulmonary nodule to a comparison examination dated 07/26/17. 2. Resolution of previously seen consolidation of the right lower lobe on the comparison CT eval uation dated 04/23/18. Residual area of subsegmental atelectasis and bronchiectasis remain within the right lower lobe. 3. Stable postsurgical change of prior fundoplication. Stable postsurgical change of prior shreya cystectomy. 4. Fatty liver. 5. Right mastectomy and left chest wall port. POS: [facility]
== END 2018-09-03 13:01 | disposition home or self-care (01) ==
LOC: CT 13:00
PROVIDERS: ATTEND Internal Medicine Critical Care Medicine
DX: J47.9 Bronchiectasis, uncomplicated (principal); R91.8 Other nonspecific abnormal finding of lung field; R91.1 Solitary pulmonary nodule; J98.11 Atelectasis; K76.0 Fatty (change of) liver, not elsewhere classified; Z98.890 Other specified postprocedural states; Z90.11 Acquired absence of right breast and nipple; Z90.49 Acquired absence of other specified parts of digestive tract; Z95.9 Presence of cardiac and vascular implant and graft, unspecified
CPT/HCPCS: 71260; 82565

== ENCOUNTER 2019-06-27 10:16 | Outpatient (CLI) | payer OTHER ==
--- NOTE | 2019-06-27 11:05 | MMO ---
Left Breast MAMMO Unilat Diag DDI LT+[place]. CLINICAL HISTORY: Patient is 69 years old and is seen for diagnostic exam. The patient has no family history of breast cancer. The patient has a history of right Mastectomy in June, - malignant. VIEWS: The views performed were: left craniocaudal with tomosynthesis; left mediolateral oblique with tomosynthesis; and left mediolateral with tomosynthesis. FILMS COMPARED: The present examination has been compared to prior imaging studies performed at [facility] on 06/26/2018, and at [facility] on 05/14/2017. This study has been interpreted with the assistance of computer-aided detection. MAMMOGRAM FINDINGS: There are scattered fibroglandular densities. There are benign appearing calcifications seen in the left breast. There are no suspicious masses, suspicious calcifications, or new areas of architectural distortion. IMPRESSION: THERE IS NO MAMMOGRAPHIC EVIDENCE OF MALIGNANCY. A ROUTINE FOLLOW-UP MAMMOGRAM IN 1 YEAR IS RECOMMENDED. THE RESULTS OF THIS EXAM WERE SENT TO THE PATIENT. ACR BI-RADS Category 2 - Benign finding MAMMOGRAPHY NOTE: 1. A negative mammogram report should not delay a biopsy if a dominant of clinically suspicious mass is present. 2. Approximately 10% to 15% of breast cancers are not detected by mammography. 3. Adenosis and dense breasts may obscure an underlying neoplasm. Reported by: JAMES AWAN MD Electonically Signed: [id number]
== END 2019-06-27 10:17 | disposition home or self-care (01) ==
LOC: BICMAMMO 10:16
PROVIDERS: ATTEND Specialist
DX: Z08 Encounter for follow-up examination after completed treatment for malignant neoplasm (principal); Z85.3 Personal history of malignant neoplasm of breast; Z90.11 Acquired absence of right breast and nipple
CPT/HCPCS: G0279

== ENCOUNTER 2019-07-20 20:22 | Inpatient (IN) | payer MEDICAID, SELFPAY ==
[2019-07-20 21:15] LABS: Bacteria/HPF None Seen HPF (None Seen); Bilirubin 1+ (Negative); Blood, Urine 1+ (Negative); Clarity Clear (Clear); Glucose, Urine (Dipstick) Normal (Negative); Leukocyte Negative Leu/uL (Negative); Nitrite Negative (Negative); Protein, Urine (Dipstick) Negative (Neg-Trace); Squamous Epithelial None Seen HPF (0-3); Urobilinogen Normal mg/dL (Less than 2); WBC/HPF 0-3 HPF (0-3)
[2019-07-20 21:17] LABS: ALT (SGPT) 183 U/L (8-55); AST (SGOT) 184 U/L (5-34); Albumin 3.8 g/dL (3.4-4.8); Alkaline Phosphatase 812 U/L (40-110); Anion Gap 14 mmol/L (10-20); BUN (Urea Nitrogen) 14 mg/dL (9.8-20.1); Bilirubin, Total 8.3 mg/dL (0.2-1.2); Calc. Creatinine Clearance 0 mL/min (70-130); Calcium 9.3 mg/dL (7.8-10.44); Carbon Dioxide 20 mmol/L (23-31); Chloride 103 mmol/L (98-107); Estimated GFR-MDRD 88; Globulin 3.6 g/dL (2.4-3.5); Glucose 119 mg/dL (80-115); Lipase 64 U/L (8-78); Potassium 4.2 mmol/L (3.5-5.1); Protein, Total 7.4 g/dL (6.0-8.3); Sodium 133 mmol/L (136-145)
[2019-07-20 21:22] LABS: #Basophils 0.1 thou/uL (0.0-0.2); #Eosinphils 0.5 thou/uL (0.0-0.7); #Lymphocytes 1.4 thou/uL (1.20-3.40); #Monocytes 0.5 thou/uL (0.11-0.59); #Neutrophils 4.6 thou/uL (1.40-6.50); %Basophils 0.9 % (0.0-1.0); %Eosinophils 7.3 % (0.0-10.0); %Lymphocytes 20.2 % (21.0-51.0); %Monocytes 6.8 % (0.0-10.0); %Neutrophils 64.7 % (42.0-75.0); Mean Corpuscular HGB CONC 33.4 g/dL (32.0-36.0); Mean Corpuscular Hemoglobin 32.8 pg (27.0-31.0); Mean Corpuscular Volume 98.2 fL (78.0-98.0); Mean Platelet Volume 10.9 fL (7.4-10.4); Platelet Count 250 thou/uL (130-400); RBC Distribution Width 13.3 % (11.5-14.5); Red Blood Cell (RBC) Count 3.35 mill/uL (4.20-5.40); White Blood Cell (WBC) Count 7.1 thou/uL (4.8-10.8)
--- NOTE | 2019-07-20 21:58 | CT ---
EXAM: Abdomen and pelvic CT scan with contrast: HISTORY: Abdominal pain, history of breast cancer nausea yellowing of skin COMPARISON: None FINDINGS: Vertically oriented linear parenchymal changes in the right lung base medially have a more chronic ap pearance. Liver: Markedly dilated common bile duct up to 1.9 cm with extensive intrahepatic ductal dilatation. There is also pancreatic ductal dilatation. Correlation with laboratory findings in this regard is suggested. Gallbladder:Status post cholecystectomy. Pancreas:No pancreatic mass but there is evidence for pancreatic ductal dilatation. Spleen:Unremarkable. Postop changes in the region of the fundus of the stomach and GE junction with some stomach extending above the level of the diaphragm. Adrenal glands:Unremarkable. Kidneys:No renal calculus or acute obstruction. Small left renal cyst. There are some generalized air-filled small bowel loops which are of the borderline size without evid ence for wall thickening or signs of obstruction possibly related to minimal ileus. No CT evidence for acute appendicitis. The urinary bladder is unremarkable. Reproductive system:Minimally nodular uterus possibly small fibroids. No abscess, adenopathy, or abnormal fluid collection within the abdomen or pelvis. IMPRESSION: Markedly dilated common bile duct and intrahepatic ducts as well as some dilatation of the pancreatic duct. Correlate with laboratory findings. Consider follow-up ERCP or MRCP. Minimal vertical parenchymal changes in the right base having more chronic appearance. Postoperative changes in the region of the GE junction. Other findings as above.
--- NOTE | 2019-07-20 23:08 | ULT ---
Exam: Right upper quadrant ultrasound: HISTORY: Pain COMPARISON: Abdomen and pelvic CT scan, 07/20/2019 FINDINGS: Marked dilatation of the common bile duct up to 1.6 cm with fairly extensive intrahepatic ductal dila tation. Pancreas region is obscured. Visualized right kidney is unremarkable. No focal liver mass. IMPRESSION: Marked dilatation of the common bile duct and intrahepatic ducts. Obscured pancreas.
[2019-07-20] MEDS ORDERED: Ondansetron PF 4 MG/2 ML Vial IVP PRN (23:43)
[2019-07-20] MEDS ORDERED: Sodium Chloride 0.9% 1,000 ML IV SCH (23:59)
--- NOTE | 2019-07-21 00:46 | PDOC.EVN ---
Event Note - Event Note Event Note: [id number] HP
--- NOTE | 2019-07-21 01:08 | HP ---
CHIEF COMPLAINT: Abdominal pain and jaundice. HISTORY OF PRESENT ILLNESS: Ms. De Los Santos is a 69-year-old female with past medical history of breast cancer on chemotherapy, cholecystectomy, presents to the emergency room with right upper quadrant abdominal pain, jaundice associated with nausea. Abdominal pain started a week ago. A couple of days later, the patient started having jaundice and dark urine. Workup in the emergency room including CT of the abdomen and right upper quadrant ultrasound showed dilated intrahepatic and common bile duct. The patient's bilirubin is elevated at 8.0. The patient has been admitted to hospital for further management. The patient denies fever, but she has been having chills. PAST MEDICAL HISTORY: Breast cancer, on chemotherapy. PAST SURGICAL HISTORY: 1. Cholecystectomy. 2. Colonoscopy. 3. Hernia repair. 4. Mastectomy. SOCIAL HISTORY: Denies smoking, alcohol drinking, or drug abuse. FAMILY HISTORY: Reviewed and noncontributory. ALLERGIES: NO KNOWN ALLERGIES. HOME MEDICATIONS: Please see home medication reconciliation form for updated medications. REVIEW OF SYSTEMS: Review of 14 systems negative except what is mentioned in the history of present illness. PHYSICAL EXAMINATION: GENERAL: The patient is awake, alert, in moderate distress. HEAD AND HEAD: Normocephalic, atraumatic. Icteric sclera. NECK: Supple. No JVD. CHEST: Fair bilateral air entry. HEART: S1, S2. Regular. ABDOMEN: Soft with epigastric and right upper quadrant tenderness. Bowel sounds present. NEUROLOGIC: Awake, alert, oriented x3. PSYCH: Normal mood. SKIN: Jaundice. LABORATORY DATA: CT abdomen and pelvis and right upper quadrant ultrasound as mentioned above in the history of present illness. CBC; WBC 7.1, hemoglobin 11, platelets 250. Sodium 133, potassium 4.2, BUN 14, creatinine 0.6, glucose 119, bilirubin is 8.3, AST is 184, ALT 183, alkaline phosphatase 112. ASSESSMENT: 1. Jaundice, ?obstructive. 2. Dilated intrahepatic and common bile duct. 3. Acute abdominal pain. 4. History of cholecystectomy. 5. Breast cancer on chemotherapy. PLAN: 1. Admit. 2. Keep the patient n.p.o. 3. IV fluids. 4. Consult GI in a.m., the patient may need MRCP or ERCP. 5. Reconcile home medications. 6. DVT prophylaxis, SCDs/early ambulation. 7. Expected length of stay two midnights or more. Job ID: [id number]
[2019-07-21 05:16] VITALS: BMI 31.8
[2019-07-21 05:38] LABS: ALT (SGPT) 173 U/L (8-55); AST (SGOT) 177 U/L (5-34); Albumin 3.6 g/dL (3.4-4.8); Alkaline Phosphatase 746 U/L (40-110); Anion Gap 13 mmol/L (10-20); BUN (Urea Nitrogen) 11 mg/dL (9.8-20.1); Bilirubin, Total 8.2 mg/dL (0.2-1.2); Calc. Creatinine Clearance 101 mL/min (70-130); Calcium 9.4 mg/dL (7.8-10.44); Carbon Dioxide 20 mmol/L (23-31); Chloride 106 mmol/L (98-107); Estimated GFR-MDRD 83; Globulin 3.4 g/dL (2.4-3.5); Glucose 95 mg/dL (80-115); Potassium 4.1 mmol/L (3.5-5.1); Sodium 135 mmol/L (136-145)
[2019-07-21 06:24] LABS: Band 4 % (5-11); Eosinophils 5 % (0-10); Lymphocytes 26 % (21-51); MDiff Complete? YES; Mean Corpuscular HGB CONC 33.4 g/dL (32.0-36.0); Mean Corpuscular Volume 98.6 fL (78.0-98.0); Mean Platelet Volume 10.9 fL (7.4-10.4); Monocytes 5 % (0-10); Neutrophil 60 % (42-75); Platelet Count 237 thou/uL (130-400); RBC Distribution Width 13.5 % (11.5-14.5); Red Blood Cell (RBC) Count 3.35 mill/uL (4.20-5.40); White Blood Cell (WBC) Count 6.7 thou/uL (4.8-10.8)
[2019-07-21] MEDS ORDERED: FLU VACC TS2019-20(65YR UP)/PF 180 MCG/0.5 ML SYRINGE IM ONE (09:00)
[2019-07-21] MEDS: Famotidine/PF 20 mg/2ml Vial SLOW IVP SCH ×2 (09:08→20:52)
[2019-07-21] MEDS: Dextrose 5 % And 0.9 % NaCl 1,000 ML IV SCH ×3 (11:45→21:05)
[2019-07-21] MEDS: Piperacillin/Tazobactam 3.375 GM in Sodium Chloride 0.9% 100 ML IVPB SCH ×3 (11:46→23:38)
[2019-07-21] MEDS ORDERED: Iothalamate Meglumine 60% 50 ML VIAL FS ONE (12:38)
[2019-07-21] MEDS ORDERED: Indomethacin 50 MG SUPP ONE ×2 (12:38→13:30)
[2019-07-21] MEDS ORDERED: Scopolamine 1.5 mg/72 hour Patch ONE (13:19)
[2019-07-21] MEDS ORDERED: Fentanyl 100 MCG/2 ML VIAL ONE (13:19)
[2019-07-21] MEDS ORDERED: Indomethacin 50 MG SUPP PR SCH (13:30)
--- NOTE | 2019-07-21 14:26 | CON ---
DATE OF CONSULTATION: 07/21/2019 REASON FOR CONSULTATION: Elevated liver function tests and abnormal GI imaging. CONSULTING PROVIDER: Tyra Du MD HISTORY OF PRESENT ILLNESS: The patient is a 69-year-old female with past medical history of breast cancer status post chemotherapy and radiation (finished both in December 2017) and possible gastroesophageal reflux disease presenting with complaints of right upper quadrant abdominal pain. She states that she was in her usual state of health until approximately 1 week ago, when she had the acute onset of increased right upper quadrant abdominal pain that has been progressively getting more frequent over the last week. She states that the pain is characterized as an aching type sensation, is intermittent, lasting for approximately 20 to 30 minutes when it does occur, will occur approximately 2 to 3 times a day in association with meals and reaches a severity of 4/10. The pain is worse primarily with eating or drinking. With the onset of pain within 10 to 15 minutes after eating and then follows a crescendo decrescendo pattern after that over the course of the next 20 to 30 minutes. She does not endorse any alleviating factors, except for the pain medication she has obtained here during the hospitalization. Associated symptoms included increased abdominal bloating, borborygmi, increased fatigue, itching and jaundice that she has been experiencing over the last week as well. Otherwise, she denies any nausea, vomiting, fevers, chills, hematemesis, melena, hematochezia, diarrhea, or constipation. Of note, when the patient was evaluated in the ER on admission, she was noted to have CT findings showing a markedly dilated common bile duct in addition to elevated LFTs concerning for possible obstruction of the biliary tree. She was then thusly admitted to the hospital for further management. REVIEW OF SYSTEMS: A 10-category review of systems was obtained with all responses negative except for the pertinent positives as listed in HPI. PAST MEDICAL HISTORY: Breast cancer status post chemotherapy and radiation and possible GERD. PAST SURGICAL HISTORY: Cholecystectomy, hernia repair, and mastectomy. FAMILY HISTORY: Denies any GI malignancies. SOCIAL HISTORY: Denies any tobacco, alcohol, or illicit drug use. OUTPATIENT MEDICATIONS: Reviewed. ALLERGIES: NO KNOWN DRUG ALLERGIES. PHYSICAL EXAMINATION: VITAL SIGNS: Temperature 98.3, pulse 67, blood pressure 105/69, respiratory rate 18, and saturating 97% on room air. GENERAL: The patient is lying in bed, in no acute distress. Alert and oriented x4. HEENT: Normocephalic and atraumatic. NECK: Supple. No JVD or scleral icterus noted. CARDIOVASCULAR: Regular rate and rhythm with no discernible murmurs, gallops, or rubs. RESPIRATORY: Clear to auscultation bilaterally with no discernible wheezes or rales. ABDOMEN: Normoactive bowel sounds. Soft and nondistended. Tenderness to palpation in the right upper quadrant as well as along the right mid flank. Otherwise, nontender to palpation. EXTREMITIES: No cyanosis, clubbing, or edema. LABORATORY DATA: CBC with a white blood cell count of 6.7, hemoglobin 11, hematocrit 33, and platelets 237. Chemistry with a sodium of 135, potassium 4.1, chloride 106, CO2 of 20, BUN 11, creatinine 0.7, glucose 95, AST 177, ALT 173, alkaline phosphatase 746, total bilirubin 8.2, and lipase 64. IMAGING DATA: CT of the abdomen and pelvis was obtained on July 20, 2019, which showed markedly dilated common bile duct at approximately 1.9 cm with intrahepatic dilatation. Pancreatic dilatation was also noted in addition to postoperative changes consistent with a cholecystectomy and possible postoperative changes in the gastric fundus. A right upper quadrant ultrasound was also obtained on July 20, 2019, which showed a dilated common bile duct up to 1.6 cm with extensive intrahepatic ductal dilatation. The pancreas was not observed during this examination. ASSESSMENT AND PLAN: The patient is a 69-year-old female with past medical history of breast cancer status post chemotherapy and radiation, and possible gastroesophageal reflux disease, presenting with abnormal gastrointestinal imaging and elevated LFTs concerning for biliary obstruction. Biliary obstruction: The patient is presenting with acute onset of increased right upper quadrant abdominal pain that has been present for the last week, following a crescendo decrescendo pattern in association with food intake and reaching a severity of 4/10. Upon evaluation here in the ER, she was noted to have elevated LFTs and obstructive-type pattern as well as a CT scan and right upper quadrant ultrasound showing significant dilation of the common bile duct greater than what would be expected for the patient post cholecystectomy. At this time, the differential could include ampullary stenosis, sphincter of Oddi dysfunction (less likely), retained gallstone (less likely), biliary stricture, cholangiocarcinoma, ampullary lesion or extrinsic compression of the common bile duct. Recommendations: 1. Would continue the patient on n.p.o. status. 2. Would continue with broad-spectrum antibiotics including Zosyn for biliary obstruction. 3. We will plan for endoscopic retrograde cholangiopancreatography later today for further evaluation of the biliary tree. 4. If the endoscopic retrograde cholangiopancreatography is negative for obvious pathology, would then consider magnetic resonance cholangiopancreatography for further evaluation of the surrounding structures and possible extrinsic compression of the common bile duct. We will continue to follow. Please call with any questions. Job ID: [id number]
[2019-07-21] MEDS ORDERED: Morphine Sulfate 2 MG/ML SYRINGE SLOW IVP PRN (15:57)
[2019-07-21] MEDS ORDERED: Ondansetron HCl/PF 4 MG/2 ML Vial IVP PRN (15:57)
[2019-07-21] MEDS ORDERED: Promethazine HCl 25 MG/ML VIAL IM PRN (15:57)
[2019-07-21] MEDS ORDERED: HYDROmorphone 2 MG/ML VIAL SLOW IVP PRN (15:57)
[2019-07-21] MEDS ORDERED: Meperidine HCl/PF 25 MG/ML VIAL SLOW IVP PRN (15:57)
[2019-07-21] MEDS ORDERED: Promethazine HCl 25 MG/ML VIAL SLOW IVP PRN (15:57)
[2019-07-21] MEDS ORDERED: Ketorolac Tromethamine 30 MG/ML VIAL IVP PRN (15:57)
[2019-07-21] MEDS ORDERED: PACU-Morphine 4MG/ML VIAL SLOW IVP PRN (15:57)
[2019-07-21] MEDS ORDERED: Ketorolac Tromethamine 30 MG/ML VIAL ONE (16:03)
[2019-07-21] MEDS ORDERED: Promethazine HCl 25 MG/ML VIAL ONE (16:19)
--- NOTE | 2019-07-21 17:01 | OP ---
DATE OF PROCEDURE: 07/21/2019 INDICATION FOR PROCEDURE: Abnormal liver function tests, probable biliary obstruction seen on imaging/abnormal GI imaging. DESCRIPTION OF PROCEDURE: After the risks and benefits of the procedure were explained to the patient including risks of infection, bleeding, perforation, reactions to anesthesia, aspiration, post ERCP pancreatitis, and/or pain, informed consent was obtained. The patient was then taken to the endoscopy suite, where general anesthesia with endotracheal tube intubation was performed by Anesthesia support. Once the patient was intubated and sedated, she was maneuvered into the prone position in anticipation of the ERCP. Once in adequate position, the standard duodenoscope was advanced into the mouth with intubation of the esophagus, stomach, and the proximal small intestines with the findings listed below. The patient tolerated the procedure well with no immediate perioperative complications. Upon conclusion of the procedure, all equipment was removed from the patient and she was transferred to PACU in satisfactory condition. FINDINGS: EGD findings: Limited views were obtained of the upper GI tract during this procedure due to the side-viewing nature of the scope of the limited views obtained. Normal-appearing mucosa was seen within the proximal, mid, and distal esophagus. A large amount of retained food was seen within the stomach, limiting visualization of the gastric mucosa significantly of the mucosa seen. There was no evidence of erosions, ulcerations, mass, lesions, or active/recent bleeding. Upon entry into the proximal small intestines, there was also a larger amount of retained food seen that did somewhat limit visualization. However, within the second portion of the duodenum, there was a large ulcerated and friable mass that was in the region surrounding the ampulla. The ampulla was not easily identified upon initial examination nor was easily identified during the course of this procedure at all. Multiple biopsies were taken from this region with biopsies placed in a specimen jar for evaluation. Otherwise, normal-appearing mucosa was seen within the duodenal bulb. ERCP findings: The duodenoscope was easily advanced to the second portion of the duodenum with some decreased visualization due to the amount of retained food within the stomach and proximal small intestines. However, the region around the ampulla showed a 4 x 2 cm ulcerated flat lesion/mass that appeared to affect the ampulla itself. In fact, the ampulla was not easily identified due to the presence of this mass and distortion of the anatomy. Upon manipulation of this mass with the sphincterotome, it immediately started to bleed, thereby limiting visualization even further. Multiple attempts were made to cannulate the common bile duct through the ampulla, and did have successful cannulation at one point of the pancreatic duct, but was ultimately unsuccessful. In fact, it was unclear if the pancreatic and common bile duct were still in continuity with each other at the ampulla of Vater given the anatomical distortion by the mass. Given unsuccessful attempts to cannulate the common bile duct, multiple biopsies were then taken from the lesion for further evaluation and all equipment was removed from the patient. IMPRESSION: 1. 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 2. Unsuccessful cannulation of the common bile duct secondary to distorted anatomy and inadequate visualization of the ampulla. 3. Successful cannulation of the pancreatic duct that showed a dilated pancreatic duct at approximately 5 mm. There was no evidence of stricture or stone. RECOMMENDATIONS: 1. Would continue the patient on n.p.o. status for now until percutaneous transhepatic cholangiostomy. 2. Would order a PTC for successful drainage of the biliary tree. 3. Would follow up on the biopsies with further management guided by pathology report. 4. Would consult the Oncology Service given the mass discovered today and possible need for treatment. 5. Would start the patient on cholestyramine 1 g b.i.d. for pruritus associated with hyperbilirubinemia. 6. Would continue broad-spectrum antibiotics for possible infection given this obstructive process. 7. Would monitor the patient for signs of post ERCP pancreatitis. 8. We will place the patient on IV fluids given n.p.o. status. We will continue to follow. Please call with any questions. Job ID: [id number] [facility]
[2019-07-22 05:47] LABS: #Lymphocytes 0.9 thou/uL (1.20-3.40); #Monocytes 0.2 thou/uL (0.11-0.59); #Neutrophils 5.3 thou/uL (1.40-6.50); %Basophils 0.4 % (0.0-1.0); %Eosinophils 0.3 % (0.0-10.0); %Lymphocytes 14.1 % (21.0-51.0); %Monocytes 3.1 % (0.0-10.0); %Neutrophils 82.1 % (42.0-75.0); Hemoglobin 10.9 g/dL (12.0-16.0); Mean Corpuscular HGB CONC 34.1 g/dL (32.0-36.0); Mean Corpuscular Hemoglobin 33.6 pg (27.0-31.0); Mean Corpuscular Volume 98.4 fL (78.0-98.0); Mean Platelet Volume 11.1 fL (7.4-10.4); Platelet Count 248 thou/uL (130-400); RBC Distribution Width 13.4 % (11.5-14.5); Red Blood Cell (RBC) Count 3.24 mill/uL (4.20-5.40); White Blood Cell (WBC) Count 6.5 thou/uL (4.8-10.8)
[2019-07-22 06:03] LABS: ALT (SGPT) 158 U/L (8-55); AST (SGOT) 136 U/L (5-34); Albumin 3.3 g/dL (3.4-4.8); Alkaline Phosphatase 728 U/L (40-110); Anion Gap 12 mmol/L (10-20); BUN (Urea Nitrogen) 14 mg/dL (9.8-20.1); Bilirubin, Direct 5.3 mg/dL (0.1-0.3); Calc. Creatinine Clearance 98 mL/min (70-130); Calcium 8.4 mg/dL (7.8-10.44); Carbon Dioxide 21 mmol/L (23-31); Chloride 108 mmol/L (98-107); Estimated GFR-MDRD 81; Glucose 162 mg/dL (80-115); Lipase 262 U/L (8-78); Magnesium 2.1 mg/dL (1.6-2.6); Protein, Total 6.7 g/dL (6.0-8.3); Sodium 137 mmol/L (136-145)
[2019-07-22] MEDS: Piperacillin/Tazobactam 3.375 GM in Sodium Chloride 0.9% 100 ML IVPB SCH ×4 (06:18→23:19)
[2019-07-22] MEDS ORDERED: Prevnar 13-Val Conj/PF 0.5 ML SYRINGE IM ONE (09:00)
[2019-07-22] MEDS: Famotidine/PF 20 mg/2ml Vial SLOW IVP SCH ×2 (09:32→22:00)
[2019-07-22] MEDS: Dextrose 5 % And 0.9 % NaCl 1,000 ML IV SCH ×3 (09:33→22:11)
[2019-07-22 10:31] LABS: PTT 26.8 SEC (22.9-36.1); Prothrombin Time 13.4 SEC (12.0-14.7)
[2019-07-22] MEDS ORDERED: Sodium Chloride 0.9% 100 ML ONE (11:55)
[2019-07-22] MEDS ORDERED: Piperacillin/Tazobactam 3.375 GM VIAL ONE (11:55)
[2019-07-22] MEDS ORDERED: Fentanyl 100 MCG/2 ML VIAL ONE (12:21)
[2019-07-22] MEDS ORDERED: Midazolam HCl 2 mg/2 ml Vial ONE (12:21)
[2019-07-22] MEDS ORDERED: PROPOFOL 20 ML ONE (13:47)
[2019-07-22 15:31] LABS: WBC/Nucleated-Auto (BF) 582 uL
--- NOTE | 2019-07-22 15:38 | SPC ---
EXAM: Percutaneous transhepatic cholangiogram and right external biliary drainage catheter placement PROVIDED CLINICAL HISTORY: A biliary mass with biliary ductal dilatation. A into the stent was unable to be placed at endoscopy. Placement of a percutaneous internal/external biliary drainage catheter was requested. Fluoroscopy: Time-12.6 minutes, total dose-115,064 mGy centimeter squared COMPARISON: None TECHNIQUE: The procedure including the risks and complications were explained to the patient and the patient's d aughter. After informed consent was obtained, the patient was placed on the angiography table in the supine position. The patient was administered Zosyn intravenously just prior to this examination. Limited sonographic evaluation of the left hepatic lobe demonstrates more centrally dilated intrahepatic ducts with smaller appearance of the left hepatic lobe. As result, an area in the mid ax illary line approximately the 11th intercostal space was marked, and the area was then meticulously prepped and draped in usual sterile fashion. [facility]. Skin and subcutaneous tissues were infiltrated with buffered 1% lidocaine for local anesthesia at the intended puncture site. A 22-gauge Chiba needle was advanced into the right hepatic lobe in the mid axillary line. The needle was withdrawn while injecting contrast. The bile duct was accessed on i nitial pullback of the needle, and a cholangiogram was performed. A second site just inferior to the initial needle puncture was infiltrated with buffered 1% lidocaine for local anesthesia. A second needle was placed, and a more peripheral right hepatic lobe bile duct was accessed. Injection of contrast confirmed placement in the bile duct. The needle was exchanged over a 0.018 inch guidewire for a 6 [place] AccuStick sheath with inner dilat or and stiff inner cannula. Distal portion catheter was positioned in the common duct. The inner dilator and stiff inner cannula as well as guidewire were removed with a return of bilious fluid. The guidewire was unable to be advanced into the small bowel. As result the introducer sheath was exchanged over the guidewire for a 5 [place] Berenstein catheter. The guidewire was exchanged for a 0. 035 inch Glidewire. Attempts at manipulating the catheter and Glidewire into the small bowel were unsuccessful. Contrast injection at the distal portion of the common duct also does not delineate con trast within the small bowel. As result, the catheter was exchanged over a 0.035 inch Amplatz guidewire for an 8 Gu[place]an tissue dilator followed by placement of an 8 [place]an cope loop all-purpose d rainage catheter. The tip of the catheter was positioned in the distal common duct. The pigtail on the catheter was not formed. The catheter was placed to gravity drainage and sutured in place utilizi ng 2-0 Ethilon suture material. A dry sterile dressing was placed. The patient tolerated the procedure well and without immediate complication. Patient was transported to postoperative holding in stable condition. IMPRESSION: 1. 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 Ther e is resultant severe intrahepatic biliary ductal dilatation involving the central ducts with mild to moderate dilatation of the more peripheral hepatic ducts. 2. Unsuccessful attempts at traversing the distal common duct obstruction and placement of an interna l/external biliary drainage catheter. 3. Technically successful placement of an 8 [place]an right external biliary drainage catheter with tip of the catheter in the distal common duct.
[2019-07-22 16:19] LABS: Body Fluid Source Abscess Fluid; Clarity Cloudy/Turbid (Clear)
[2019-07-22 16:20] LABS: BF Color Brown; RBC Count-Automated (BF) 100 /cumm; Tube # EDTA
[2019-07-22] MEDS: Cholestyramine/Aspartame 4 gm Packet PO SCH (22:46)
--- NOTE | 2019-07-22 23:23 | PRG ---
DATE OF SERVICE: 07/22/2019 REASON FOR CONSULTATION: Elevated liver function tests, abnormal GI imaging, mass seen on ERCP. SUBJECTIVE: This morning the patient underwent a percutaneous cholangiostomy drain with a goal of a possible internal/external drain. However, during the course of the procedure, they were not able to traverse the ampulla, but instead is now draining via percutaneous route. After the procedure, the patient states that she has had a significant improvement in her right upper quadrant abdominal pain and no longer feels the abdominal fullness that she had been experiencing over the last week. She also states that the increased itching has since discontinued as well and her hunger is returning with a vengeance. Otherwise, she currently denies any nausea, vomiting, fevers, chills, GI bleeding, diarrhea, or constipation. OBJECTIVE: VITAL SIGNS: Temperature 97.2, pulse 80, blood pressure 99/60, respiratory rate 16, saturating 98% on room air. GENERAL: The patient was lying in bed, in no acute distress. Alert and oriented x4 Z[place]ian-speaking primarily only. CARDIOVASCULAR: Regular rate and rhythm. RESPIRATORY: Clear to auscultation bilaterally. ABDOMEN: Normoactive bowel sounds. Soft, nondistended. Mild tenderness to palpation around the area of the percutaneous drain. EXTREMITIES: No cyanosis, clubbing, or edema. LABORATORY DATA: CBC with a white blood cell count of 6.5, hemoglobin 10.9, hematocrit 31.9, platelets 248. Chemistry with a sodium of 137, potassium 4, chloride 108, CO2 of 21, BUN 14, creatinine 0.72, glucose 162. AST 136, ALT 158, alkaline phosphatase 728, total bilirubin 7. IMAGING DATA: The patient underwent a percutaneous transhepatic cholangiostomy on July 22, 2019, with a successful placement of a right external biliary drain catheter. Attempts to place an internal/external drain were unsuccessful given the inability to pass a guidewire through the ampulla and past the obstructive mass. Installation of contrast in that region was also unsuccessfully not seen collecting within the small bowel indicating probable complete obstruction. ASSESSMENT AND PLAN: The patient is a 69-year-old female with past medical history of breast cancer status post chemotherapy and radiation in 2018, possible gastroesophageal reflux disease, who is presenting with an ampullary mass with resultant biliary obstruction. Biliary obstruction/ampullary mass. The patient initially presented with acute onset of right upper quadrant abdominal pain with abnormal LFTs and LFT showing a possible obstructive-type process. She subsequently underwent ERCP on July 21, 2019, which showed the presence of an approximate 4 x 2 cm lesion/mass that seems to be eroding into the small bowel wall as well as the periampullary region as well and evolving ampulla itself. Attempts to cannulate the common bile duct were unsuccessful. She ultimately underwent successful cholangiostomy placement on July 22, 2019, with significant reduction of her pain and is most likely decompressing this region at this time. Given the evidence on her CT scan, there does not seem to be any evidence of metastatic disease nor with the appearance on the ERCP, it did not appear to be significantly invasive, making the likelihood of metastatic disease lower. At this time, the patient may be a suitable candidate for surgical resection, but would most likely require a Whipple procedure, which should most likely be done at an institution with a higher volume of these types of procedures. Chemotherapy could also be considered in this patient as well, but would defer to Oncology for that evaluation. RECOMMENDATIONS: 1. We would continue the patient on broad-spectrum antibiotics including Zosyn for the biliary obstruction and recent placement of the PTC. 2. We have consulted the oncology service for evaluation of this patient for recommendations regarding surgical versus chemotherapy management of this ampullary lesion. 3. We would continue to trend the patient's LFTs for response to the PTC placement today and successful decompression of the biliary tree. 4. If surgical options are to be considered, we would transfer the patient to [place] either as an inpatient or outpatient for evaluation of a possible Whipple procedure. 5. We will follow up on the biopsy results hopefully with the pathology read coming back tomorrow. We will continue to follow. Please call with any questions again. Job ID: [id number]
[2019-07-23 05:21] LABS: #Eosinphils 0.2 thou/uL (0.0-0.7); #Lymphocytes 1.7 thou/uL (1.20-3.40); #Monocytes 0.4 thou/uL (0.11-0.59); #Neutrophils 5.1 thou/uL (1.40-6.50); %Basophils 0.5 % (0.0-1.0); %Eosinophils 2.2 % (0.0-10.0); %Monocytes 5.3 % (0.0-10.0); %Neutrophils 69.1 % (42.0-75.0); Hemoglobin 10.2 g/dL (12.0-16.0); Mean Corpuscular HGB CONC 33.8 g/dL (32.0-36.0); Mean Corpuscular Hemoglobin 33.7 pg (27.0-31.0); Mean Corpuscular Volume 99.5 fL (78.0-98.0); Mean Platelet Volume 10.8 fL (7.4-10.4); Platelet Count 206 thou/uL (130-400); RBC Distribution Width 13.6 % (11.5-14.5); Red Blood Cell (RBC) Count 3.03 mill/uL (4.20-5.40); White Blood Cell (WBC) Count 7.4 thou/uL (4.8-10.8)
[2019-07-23] MEDS: Piperacillin/Tazobactam 3.375 GM in Sodium Chloride 0.9% 100 ML IVPB SCH ×4 (05:27→23:10)
[2019-07-23 05:47] LABS: ALT (SGPT) 120 U/L (8-55); AST (SGOT) 74 U/L (5-34); Albumin 3.1 g/dL (3.4-4.8); Alkaline Phosphatase 564 U/L (40-110); Anion Gap 12 mmol/L (10-20); BUN (Urea Nitrogen) Less than 4 mg/dL (9.8-20.1); Bilirubin, Total 3.3 mg/dL (0.2-1.2); Calc. Creatinine Clearance 90 mL/min (70-130); Calcium 8.4 mg/dL (7.8-10.44); Carbon Dioxide 20 mmol/L (23-31); Chloride 110 mmol/L (98-107); Estimated GFR-MDRD 74; Glucose 106 mg/dL (80-115); Potassium 3.4 mmol/L (3.5-5.1); Protein, Total 6.1 g/dL (6.0-8.3); Sodium 139 mmol/L (136-145)
--- NOTE | 2019-07-23 08:29 | PDOC.HOSPP ---
- Subjective Encounter Date: 07/22/19 Encounter Time: 09:00 Subjective: Patient seen and examined for Obstructive jaundice. s/p ERCP. No new complaints. No overnight events - Objective Vital Signs & Weight: Vital Signs (12 hours) Temp Pulse Resp BP BP Pulse Ox 07/23/19 07:20 97.6 F 69 16 116/77 97 07/23/19 03:48 97.9 F 60 16 108/69 97 07/22/19 23:46 98.2 F 65 16 102/67 96 Weight Weight 180 lb I&O: 07/22/19 07/23/19 07/24/19 06:59 06:59 06:59 Intake Total 3202 4372 Output Total 150 Balance 3202 4222 Result Diagrams: 07/23/19 04:43 07/23/19 04:43 Additional Labs: Laboratory Tests 07/22/19 04:41 Total Bilirubin 7.0 H Direct Bilirubin 5.3 H AST 136 H ALT 158 H Alkaline Phosphatase 728 H Radiology Reviewed by me: Yes (RUQ USG - reviewed) Hospitalist ROS - Review of Systems Respiratory: denies: cough, dry, shortness of breath, hemoptysis, SOB with excertion, pleuritic pain, sputum, wheezing, other Cardiovascular: denies: chest pain, palpitations, orthopnea, paroxysmal noc. dyspnea, edema, light headedness, other - Medication Medications: Active Medications Generic Name Dose Route Start Last Admin Trade Name Freq PRN Reason Stop Dose Admin Cholestyramine Resin 4 gm 07/22/19 22:00 07/22/19 22:46 Questran Light PO 4 gm 1000,2200 RAJANI Administration Famotidine 20 mg 07/21/19 09:00 07/22/19 22:00 Pepcid SLOW IVP 20 mg Q12HR RAJANI Administration Piperacillin Sod/Tazobactam 100 mls @ 200 mls/hr 07/21/19 12:00 07/23/19 05: 27 Sod 3.375 gm/ Sodium Chloride IVPB 100 mls Q6HR RAJANI Administration Dextrose/Sodium Chloride 1,000 mls @ 125 mls/hr 07/21/19 10:45 07/22/19 22:11 D5 0.9% Ns IV 1,000 mls .Q8H RAJANI Administration Sodium Chloride 10 ml 07/22/19 21:00 07/22/19 22:00 Flush - Normal Saline IVF Not Given Q12HR RAJANI - Exam General Appearance: NAD Neck: supple, no JVD Heart: RRR, no gallops Respiratory: CTAB, no ronchi Gastrointestinal: soft, normal bowel sounds Extremities: no edema Hosp A/P - Plan DVT proph w/SCDs Obstructive jaundice with ampullary mass Obesity BMI 31.9 GERD h/o Breast Ca PLAN: Cont IV Zosyn External drain placement AM labs
[2019-07-23] MEDS ORDERED: Dextrose 5 % And 0.9 % NaCl 1,000 ML IV SCH (08:30)
[2019-07-23] MEDS ORDERED: Potassium Chloride 10 MEQ TAB PO SCH (08:30)
[2019-07-23] MEDS: Famotidine 20 MG TAB PO SCH ×2 (09:00→20:10)
[2019-07-23] MEDS: Cholestyramine/Aspartame 4 gm Packet PO SCH ×2 (09:01→21:08)
--- NOTE | 2019-07-23 12:04 | CON ---
DATE OF CONSULTATION: REASON FOR CONSULT: Ampullary mass. HISTORY OF PRESENT ILLNESS: Ms. 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 She is status post mastectomy, chemo and radiation. She presented to the ER with complaints of right upper quadrant pain for the past week. She was jaundice. In the emergency room, she underwent a CT scan of the abdomen. There was marked dilated common bile duct and intrahepatic ducts. Her bilirubin on arrival was 8.3 with elevated LFTs. GI was consulted and performed a percutaneous transhepatic cholangiostomy with placement of a right external biliary drain catheter. She did have an obstructive mass of the ampulla. Her bilirubin has improved since that time and currently at 3.3. She is eating without any complication. No pain. Biopsies were taken during the ERCP and are currently pending. PAST MEDICAL HISTORY: 1. Invasive ductal carcinoma of the right breast. 2. History of right lung cavitation secondary to inflammation and infection. PAST SURGICAL HISTORY: 1. Cholecystectomy. 2. Mastectomy. 3. Hernia repair. 4. MediPort placement. ALLERGIES: NO KNOWN DRUG ALLERGIES. HOME MEDICATION: Anastrozole 1 mg daily. FAMILY HISTORY: Her sister had an unknown type cancer. SOCIAL HISTORY: Single, lives with her children. No alcohol, tobacco, or illicit drug use. REVIEW OF SYSTEMS: A 10-point review of systems is negative. PHYSICAL EXAMINATION: VITAL SIGNS: Temperature 97.6, pulse is 69, respiratory rate 16, BP is 116/77, she is 97% on room air. GENERAL: Well-developed, well-nourished female, in no acute distress. HEENT: Normocephalic and atraumatic. Pupils are equal and reactive to light. NECK: Supple. CV: Regular rate and rhythm. LUNGS: Clear. ABDOMEN: Soft and nontender. Bowel sounds are positive. She has a drain to right upper quadrant with green drainage. EXTREMITIES: No clubbing, cyanosis, or edema. SKIN: Positive for mild jaundice. HEMATOLOGICAL: No petechiae or purpura. NEUROLOGICAL: Nonfocal. PSYCH: She is alert, oriented, and appropriate. PERTINENT LABS AND X-RAYS: Current WBCs are 7.7, hemoglobin 10.2, hematocrit 30.1, platelet count is 206,000, she has 69% neutrophils, 23% lymphocytes. PT 13.4, INR is 1.0, and PTT is 26.8. Sodium is 139, potassium 3.4, chloride 110, CO2 is 20 , BUN is less than 4, creatinine 0.78, calcium is 8.4, bilirubin 3.3, AST is 74, ALT is 120, alkaline phosphatase is 564. Serum total protein 6.1, albumin 3.1, globulin 3, lipase is 97. Urine is negative for bacteria. Radiology per HPI. ASSESSMENT: 1. Ampullary mass with obstructive jaundice, status post percutaneous drain placement. 2. History of breast cancer, currently on Arimidex. DISCUSSION: The patient's pathology is currently pending, however, likely to be positive for malignancy. If so, she will be referred for surgical opinion at [facility] in [place] for an opinion regarding surgical resection. She will follow up with Dr. Javier in the next week or so to discuss this further. She can be discharged once she is taking p.o. and she is cleared by GI. Thank you for the consult. Job ID: [id number] [email or web address]
--- NOTE | 2019-07-23 22:04 | PDOC.HOSPP ---
- Subjective Encounter Date: 07/23/19 Encounter Time: 10:30 Subjective: Patient seen and examined for jaundice. Feeling better. Mild nausea. No other complaints. No overnight events - Objective Vital Signs & Weight: Vital Signs (12 hours) Temp Pulse Resp BP BP Pulse Ox 07/23/19 19:40 98.1 F 73 16 107/71 96 07/23/19 16:09 98.6 F 67 14 112/72 97 07/23/19 12:15 97.9 F 66 16 118/75 96 Weight Weight 180 lb I&O: 07/22/19 07/23/19 07/24/19 06:59 06:59 06:59 Intake Total 3202 4372 1690 Output Total 150 750 Balance 3202 4222 940 Result Diagrams: 07/23/19 04:43 07/23/19 04:43 Hospitalist ROS - Review of Systems Respiratory: denies: cough, dry, shortness of breath, hemoptysis, SOB with excertion, pleuritic pain, sputum, wheezing, other Cardiovascular: denies: chest pain, palpitations, orthopnea, paroxysmal noc. dyspnea, edema, light headedness, other - Medication Medications: Active Medications Generic Name Dose Route Start Last Admin Trade Name Freq PRN Reason Stop Dose Admin Cholestyramine Resin 4 gm 07/22/19 22:00 07/23/19 21:08 Questran Light PO 4 gm 1000,2200 RAJANI Administration Famotidine 20 mg 07/23/19 09:00 07/23/19 20:10 Pepcid PO 20 mg BID RAJANI Administration Piperacillin Sod/Tazobactam 100 mls @ 200 mls/hr 07/21/19 12:00 07/23/19 17: 31 Sod 3.375 gm/ Sodium Chloride IVPB 100 mls Q6HR RAJANI Administration Sodium Chloride 10 ml 07/22/19 21:00 07/23/19 20:11 Flush - Normal Saline IVF Not Given Q12HR RAJANI - Exam General Appearance: NAD Neck: supple, no JVD Heart: RRR, no gallops Respiratory: CTAB, no wheezes, no ronchi Gastrointestinal: soft, non-tender, normal bowel sounds Extremities: no edema Hosp A/P - Plan DVT proph w/SCDs Obstructive jaundice with ampullary mass s/p ERCP and external drain Obesity BMI 31.9 GERD h/o Breast Ca PLAN: Cont IV Zosyn Await biopsy Change IVF to 1/2 NS AM labs
[2019-07-23] MEDS: Sodium Chloride 0.45% 1,000 ML IV SCH (23:15)
[2019-07-24] MEDS: Piperacillin/Tazobactam 3.375 GM in Sodium Chloride 0.9% 100 ML IVPB SCH ×4 (05:29→23:35)
[2019-07-24 07:15] LABS: ALT (SGPT) 99 U/L (8-55); AST (SGOT) 51 U/L (5-34); Albumin 3.3 g/dL (3.4-4.8); Alkaline Phosphatase 532 U/L (40-110); Anion Gap 12 mmol/L (10-20); BUN (Urea Nitrogen) 8 mg/dL (9.8-20.1); Calc. Creatinine Clearance 90 mL/min (70-130); Calcium 9.1 mg/dL (7.8-10.44); Carbon Dioxide 24 mmol/L (23-31); Chloride 108 mmol/L (98-107); Estimated GFR-MDRD 74; Globulin 3.3 g/dL (2.4-3.5); Glucose 88 mg/dL (80-115); Potassium 3.3 mmol/L (3.5-5.1); Protein, Total 6.6 g/dL (6.0-8.3); Sodium 141 mmol/L (136-145)
[2019-07-24] MEDS: Famotidine 20 MG TAB PO SCH ×2 (08:45→21:33)
[2019-07-24] MEDS: Cholestyramine/Aspartame 4 gm Packet PO SCH ×2 (10:35→21:33)
[2019-07-24] MEDS ORDERED: Potassium Chloride 20 MEQ TAB PO SCH (10:45)
--- NOTE | 2019-07-24 10:53 | PRG ---
DATE OF SERVICE: 07/24/2019 SUBJECTIVE: The patient is seen and examined at the bedside. Her daughter is present in the room during the visit. She does not have much complaints to offer. Some abdominal discomfort, but significantly improved. She tolerates her full liquid diet without any problem. OBJECTIVE: VITAL SIGNS: Blood pressure is 115/81, pulse is 67, temperature is 98.1, respiratory rate is 16, and O2 saturation is 97% on room air. HEENT: Head is atraumatic and normocephalic. Sclerae are somewhat icteric. Conjunctivae palish. Oral mucosa is moist. NECK: Supple. LUNGS: Breath sounds diminished at both bases. HEART: S1-S2, normal. No S3. No S4. ABDOMEN: Somewhat distended and tender in the epigastric area in the right side and the mid portion, and the drain is in place. Bowel sounds are present. EXTREMITIES: There is no clubbing or cyanosis. There is 1+ peripheral edema on both lower extremities, similar bilaterally. LABORATORY DATA: Labs showed white count of 7.4, hemoglobin 10.2, hematocrit 30.1, and platelet count is 206,000. Sodium of 141, potassium 3.4, chloride 108, CO2 of 24, BUN 8, and creatinine 0.78. Total bilirubin 3.0, AST 51, ALT 99, and alkaline phosphatase 532. Bacterial culture of bile aspirate and preliminary report showed few WBCs, no organisms, and no growth at 48 hours. 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 The patient is tolerating full liquid diet. We are going to advance her diet as tolerated after the case was discussed with Dr. Geller, her combination man. We will continue her Zosyn. We will stop her IV fluids, and she should be able to go home in the next 24 hours, if she tolerates the feeding. Job ID: [id number]
[2019-07-24] MEDS: Sodium Chloride 0.45% 1,000 ML IV SCH (17:59)
[2019-07-24] MEDS: traMADol HCl 50 MG TAB PO PRN (23:56)
[2019-07-25] MEDS: Piperacillin/Tazobactam 3.375 GM in Sodium Chloride 0.9% 100 ML IVPB SCH ×3 (05:17→17:41)
[2019-07-25] MEDS: traMADol HCl 50 MG TAB PO PRN (05:22)
[2019-07-25] MEDS: Famotidine 20 MG TAB PO SCH ×2 (08:32→21:06)
[2019-07-25] MEDS: Cholestyramine/Aspartame 4 gm Packet PO SCH ×2 (10:18→21:06)
--- NOTE | 2019-07-25 10:45 | PRG ---
DATE OF SERVICE: 07/25/2019 SUBJECTIVE: The patient is seen and examined at bedside. She complains of some nausea with her breakfast this morning. There was no any abdominal pain today, but she had pain in the right flank area yesterday. OBJECTIVE: VITAL SIGNS: Blood pressure is 115/64, pulse is 65, temperature is 97.8, respirations 16, and O2 saturation is 96% on room air. HEENT: Her head is atraumatic and normocephalic. Eyes; sclerae are showing some yellow discoloration. Oral mucosa is moist. NECK: Supple. LUNGS: Clear. HEART: S1 and S2 normal. No S3. No S4. ABDOMEN: The drain is in place. There is some epigastric discomfort in the deeper palpation. No guarding. No masses. EXTREMITIES: No clubbing, cyanosis, or edema. NEUROLOGIC: She follows my commands. She moves her all 4 extremities. LABORATORY DATA: None today. IMPRESSION: 1. Obstructive jaundice with ampullary mass, which is histopathologically adenocarcinoma, status post endoscopic retrograde cholangiopancreatography and external drain placement. 2. Hypokalemia. 3. Gastroesophageal reflux disease. 4. History of breast cancer. PLAN: Plan is to keep her on full liquid diet for lunch and if she does not have any nausea, we will advance her diet and if she tolerates that, she will be discharged home either tonight or tomorrow morning. We will continue her Zosyn. She will be switched to p.o. at the time of discharge. Job ID: [id number]
[2019-07-25] MEDS ORDERED: Acetaminophen 325 MG TAB PO PRN (11:40)
[2019-07-26] MEDS: Piperacillin/Tazobactam 3.375 GM in Sodium Chloride 0.9% 100 ML IVPB SCH ×3 (05:23→11:24)
[2019-07-26 07:34] VITALS: BP 105/67; TEMP 98.1
[2019-07-26] MEDS: Famotidine 20 MG TAB PO SCH (08:33)
[2019-07-26] MEDS: Cholestyramine/Aspartame 4 gm Packet PO SCH (10:25)
--- NOTE | 2019-07-26 15:46 | EKG ---
Test Reason : Blood Pressure : / mmHG Vent. Rate : 077 BPM Atrial Rate : 077 BPM P-R Int : 164 ms QRS Dur : 072 ms QT Int : 368 ms P-R-T Axes : 095 -22 000 degrees QTc Int : 416 ms Normal sinus rhythm Minimal voltage criteria for LVH, may be normal variant Abnormal ECG Confirmed by JENNY BLEVINS ([id number]), clinical editor VIRGILIO HUNTER ([id number]) on 07/26/2019 3:45:55 PM Referred By: Confirmed By:JENNY BLEVINS
--- NOTE | 2019-07-26 21:47 | DIS ---
DATE OF ADMISSION: 07/20/2019 DATE OF DISCHARGE: 07/26/2019 DIAGNOSES AT THE TIME OF DISCHARGE: 1. Obstructive jaundice with ampullary mass, which was histopathologically diagnosed as adenocarcinoma, poorly differentiated, status post endoscopic retrograde cholangiopancreatography and external drain placement. 2. Hypokalemia, resolved. 3. Gastroesophageal reflux disease. 4. History of breast cancer. CONSULTANTS: 1. Dr. Javier, Oncology Service. 2. Dr. Geller, Gastrointestinal Service. PROCEDURE PERFORMED: Unsuccessful cannulation of the common bile duct secondary to distorted anatomy and inadequate visualization of the ampulla and successful cannulation of the pancreatic duct, which showed a dilated pancreatic duct at approximately 5 mm without stricture or stone. Also, biopsies on large periampullary mass/lesion. HOSPITAL COURSE: The patient is a 69-year-old female, who was admitted to the hospital with abdominal pain and jaundice. Apparently, she has a history of breast cancer on chemotherapy, cholecystectomy. She had right upper quadrant abdominal pain and jaundice associated with some nausea, which started approximately 1 week ago. She noticed some dark urine. In the emergency room, workup showed CT scan of the abdomen with right upper quadrant ultrasound with findings of dilated intrahepatic and common bile duct, elevated bilirubin at 8.0. White count was 7.1, hemoglobin 11. Sodium 133, potassium 4.2, BUN 14, creatinine 0.8, glucose 119, bilirubin 8.3, AST 184, ALT 183, alkaline phosphatase 112. The patient was admitted to the hospital, placed on IV fluids. GI was consulted. The patient was seen by Dr. Geller for GI consultation. He recommended broad-spectrum antibiotic with Zosyn for biliary obstruction and endoscopic retrograde cholangiopancreatography for further evaluation of the biliary tree. The patient underwent ERCP which showed large periampullary mass/lesion, status post biopsies along with successful cannulation of the pancreatic duct which showed dilated pancreatic duct and successful cannulation of the common bile duct secondary to distorted anatomy and inadequate visualization of the ampulla. The patient was referred to interventional radiologist, who did a percutaneous transhepatic cholangiogram and right external biliary drainage catheter placement. This showed distal common duct obstruction secondary to an ampullary mass seen on prior CT exam and ERCP. Post drain placement, face was uneventful. The patient was started gradually on the diet. She tolerated diet. The pain in the abdomen and right flank improved to the point that she is able to go home at this point. She will stay on heart healthy diet. She will take levofloxacin 500 mg once a day for the next 7 days. She will follow up with Dr. Javier in 4 days, who is going to set her up for a transfer to specialist in [place] for I believe with those procedure. At the time of discharge, she is doing well. Her blood pressure is 105/67, pulse is 72, temperature is 98.1, respiratory rate is 18, O2 saturation is 97% on room air. MEDICATIONS: Her medications at the time of discharge: 1. Cholestyramine 4 g twice a day. 2. Tylenol p.r.n. 3. Levofloxacin 500 mg once a day. 4. Anastrozole daily. TIME SPENT: Time spent on this discharge is more than 30 minutes. Job ID: [id number]
== END 2019-07-26 11:50 | disposition home or self-care (01) | DRG 435 ==
LOC: ERS 20:22 → SJJU 23:25
PROVIDERS: ADMIT Internal Medicine; ATTEND Internal Medicine
PROC: 0DB98ZX Excision of Duodenum, Via Natural or Artificial Opening Endoscopic, Diagnostic (ICD-10-PCS; principal; 2019-07-22)
PROC: 0F7D8ZZ Dilation of Pancreatic Duct, Via Natural or Artificial Opening Endoscopic (ICD-10-PCS; 2019-07-22)
PROC: BF101ZZ Fluoroscopy of Bile Ducts using Low Osmolar Contrast (ICD-10-PCS; 2019-07-22)
PROC: 0F9930Z Drainage of Common Bile Duct with Drainage Device, Percutaneous Approach (ICD-10-PCS; 2019-07-22)
DX: C24.1 Malignant neoplasm of ampulla of Vater (principal); K83.1 Obstruction of bile duct; K22.8 Other specified diseases of esophagus; K21.9 Gastro-esophageal reflux disease without esophagitis; E66.9 Obesity, unspecified; R79.89 Other specified abnormal findings of blood chemistry; E87.6 Hypokalemia; Z90.49 Acquired absence of other specified parts of digestive tract; Z98.890 Other specified postprocedural states; Z68.31 Body mass index [BMI] 31.0-31.9, adult; Z85.3 Personal history of malignant neoplasm of breast
CPT/HCPCS: 36415; 47490; 47532; 47533; 51701; 74177; 74330; 76705; 80048; 80053; 80076; 81003; 81015; 83690; 83735; 85007; 85025; 85027; 85060; 85610; 85730; 86301; 87070; 87205; 88305; 88361; 89051; 90471; 90662; 93005; A4353; C1729; C1769; G0008; J1642; J1885; J2250; J2405; J2543; J2550; J2704; J3010; J3490; S0028

== ENCOUNTER 2019-07-30 20:43 | Emergency (ER) | payer MEDICAID, SELFPAY ==
[~2019-07-30 20:43] MED LIST changes: -Bupivacaine/Epinephrine 0.25% 30 ML VIAL ONE; -CEFAZOLIN/Water 2 GM/20 ML SYRINGE ONE; -CYCLOPHOSPHAMIDE IVPB SCH; -DEXAMETHASONE IVPB SCH; -DOCEtaxel 140 MG in Sodium Chloride 0.9% 250 ML 250 ML IVPB SCH; -Diprivan 40 ML ONE; -Fentanyl 100 MCG/2 ML VIAL ONE; +ISOVUE-370 76%-LOCM 1 ML ONE; -Lidocaine 1% (PF) 30 ML VIAL ONE; -Lidocaine 2% PF 10 ML AMP (For Epidural Use) ONE; -Midazolam HCl 2 mg/2 ml Vial ONE; -ONDANSETRON HCL IVPB SCH; -Propofol 200 MG/20 ML VIAL ONE; -SODIUM CHLORIDE 0.9% IVPB SCH
[2019-07-30 21:39] LABS: #Eosinphils 0.1 thou/uL (0.0-0.7); #Lymphocytes 1.7 thou/uL (1.20-3.40); #Monocytes 0.4 thou/uL (0.11-0.59); #Neutrophils 7.2 thou/uL (1.40-6.50); %Basophils 0.2 % (0.0-1.0); %Eosinophils 1.2 % (0.0-10.0); %Lymphocytes 18.3 % (21.0-51.0); %Monocytes 4.2 % (0.0-10.0); %Neutrophils 76.1 % (42.0-75.0); Mean Corpuscular HGB CONC 33.8 g/dL (32.0-36.0); Mean Corpuscular Hemoglobin 32.2 pg (27.0-31.0); Mean Corpuscular Volume 95.3 fL (78.0-98.0); Mean Platelet Volume 9.5 fL (7.4-10.4); Platelet Count 294 thou/uL (130-400); RBC Distribution Width 12.6 % (11.5-14.5); Red Blood Cell (RBC) Count 3.73 mill/uL (4.20-5.40); White Blood Cell (WBC) Count 9.5 thou/uL (4.8-10.8)
[2019-07-30] MEDS ORDERED: Ondansetron PF 4 MG/2 ML Vial ONE (21:42)
[2019-07-30 22:05] LABS: ALT (SGPT) 55 U/L (8-55); AST (SGOT) 42 U/L (5-34); Albumin 4.2 g/dL (3.4-4.8); Alkaline Phosphatase 362 U/L (40-110); Anion Gap 15 mmol/L (10-20); BUN (Urea Nitrogen) 13 mg/dL (9.8-20.1); CK (CPK) 31 U/L (29-168); Calc. Creatinine Clearance 0 mL/min (70-130); Calcium 9.6 mg/dL (7.8-10.44); Carbon Dioxide 19 mmol/L (23-31); Chloride 95 mmol/L (98-107); Estimated GFR-MDRD 82; Globulin 3.8 g/dL (2.4-3.5); Glucose 119 mg/dL (80-115); Lipase 95 U/L (8-78); Potassium 4.1 mmol/L (3.5-5.1); Sodium 125 mmol/L (136-145)
--- NOTE | 2019-07-30 22:39 | CT ---
CT ABDOMEN AND PELVIS WITH IV CONTRAST 07/30/2019 CLINICAL INFORMATION: Abdominal pain COMPARISON: 07/20/2019 Technique: Multiple contiguous axial CT images are obtained through the abdomen and pelvis with IV contrast. Cor onal reformatted images are provided. FINDINGS: Lower Chest: There is mild atelectasis present at each lung base with chronic changes at the medial r ight lung base similar to prior study. Vessels: Vascular calcifications are seen in the abdominal aorta involving the iliac arteries appear Abdomen: Portal vein:Patent Gallbladder: Surgically absent. Liver: There is been interval placement of a right-sided external biliary drainage catheter when comp ared to the prior exam. However, the biliary drainage catheter is noted to demonstrate tortuosity outside of the liver capsule, and the biliary drainage tube has been withdrawn when compared to the i nitial catheter placement on 07/22/2019. However, there has been resolution of the previously noted intra and extrahepatic biliary ductal dilatation when compared to the prior study. No perihepatic flu id collection is seen. Spleen: within normal limits. Pancreas: There is a small low-density focus seen in the region of the uncinate process of the pancre as. A definite lesion or mass in the region of pancreatic head cannot be delineated. Adrenals: within normal limits. Kidneys: Hypodense lesion left kidney is again seen is likely related to a cyst. Bowel: The colon is mildly distended with gas and retained fecal material. Loops of small bowel are n ormal in caliber. Postsurgical changes are seen in the epigastric region. Appendix: Not visualized, there are no secondary signs to suggest appendicitis Peritoneum: No ascites or free air; no fluid collection. Mesentery and Retroperitoneum: No enlarged mesenteric or retroperitoneal lymph nodes. Abdominal Wall: There are bilateral fat-containing inguinal canals. Pelvis: Reproductive Organs: No pelvic masses. Pelvis within normal limits. Bladder: within normal limits. Bones: Degenerative changes seen in the spine. No suspicious lytic or sclerotic osseous lesions are i dentified. IMPRESSION: 1. Interval placement of a right-sided external biliary drainage catheter. The biliary drainage aram ter has withdrawn when compared to the initial placement on 07/22/2019 with redundancy of the catheter between the body wall and right hepatic lobe. However, the the biliary drainage catheter marcus s remain in place, and there has been resolution of the previously seen intrahepatic and extrahepatic biliary ductal dilatation. 2. No perihepatic fluid or fluid collection is seen. 3. There is suggestion of a low-density lesion seen in the region of the uncinate process of the panc reas measuring 1.5 cm. This is difficult to further assess on this exam. 4. Distention of the colon with gas and retained fecal material. 5. No acute findings are seen.
== END 2019-07-30 23:17 | disposition home or self-care (01) ==
LOC: ERS 20:43
DX: K59.00 Constipation, unspecified (principal); E86.0 Dehydration
CPT/HCPCS: 36415; 74177; 80053; 82550; 83605; 83690; 84484; 85025; 93005; 96361; 96374; J2405; Q9966

== ENCOUNTER 2019-10-14 09:40 | Day surgery (SDC) | payer MEDICAID ==
[~2019-10-14 09:40] MED LIST changes: +Atropine Sulfate 0.25 MG in Sodium Chloride 0.9% 50 ML IVPB SCH; +DEXTROSE 5% IVPB SCH; +Dexamethasone 20 MG in Sodium Chloride 0.9% 50 ML IVPB SCH; +IRINOTECAN IVPB SCH; -ISOVUE-370 76%-LOCM 1 ML ONE; +OXALIPLATIN IVPB SCH; +Palonosetron HCl 0.25 MG in Sodium Chloride 0.9% 50 ML IVPB SCH; +SODIUM CHLORIDE 0.9% IVPB SCH; +WATER IVPB SCH
[2019-10-14] MEDS ORDERED: Sodium Chloride 0.9% 20 ML ONE (09:52)
[2019-10-14 11:03] VITALS: BP 104/65; TEMP 98.8
== END 2019-10-14 15:49 | disposition home or self-care (01) ==
LOC: ONC/OP 09:40
PROVIDERS: ATTEND Internal Medicine Hematology & Oncology
DX: Z51.11 Encounter for antineoplastic chemotherapy (principal); C50.411 Malignant neoplasm of upper-outer quadrant of right female breast; C78.6 Secondary malignant neoplasm of retroperitoneum and peritoneum
CPT/HCPCS: 96367; 96376; 96413; 96415; 96417; J0461; J0640; J1100; J1453; J2469; J3490; J7050; J7070; J9206; J9263

== ENCOUNTER 2019-10-17 14:09 | Day surgery (SDC) | payer MEDICAID ==
[~2019-10-17 14:09] MED LIST changes: -Atropine Sulfate 0.25 MG in Sodium Chloride 0.9% 50 ML IVPB SCH; -DEXTROSE 5% IVPB SCH; -Dexamethasone 20 MG in Sodium Chloride 0.9% 50 ML IVPB SCH; -IRINOTECAN IVPB SCH; -OXALIPLATIN IVPB SCH; +PEGFILGRASTIM-JMDB 6 MG/0.6 ML SYRINGE SQ SCH; -Palonosetron HCl 0.25 MG in Sodium Chloride 0.9% 50 ML IVPB SCH; -SODIUM CHLORIDE 0.9% IVPB SCH; -WATER IVPB SCH
[2019-10-17 14:34] VITALS: BP 109/66; TEMP 98.8
== END 2019-10-17 15:16 | disposition home or self-care (01) ==
LOC: ONC/OP 14:09
PROVIDERS: ATTEND Internal Medicine Hematology & Oncology
DX: C50.411 Malignant neoplasm of upper-outer quadrant of right female breast (principal); C78.6 Secondary malignant neoplasm of retroperitoneum and peritoneum
CPT/HCPCS: 96372; Q5108

== ENCOUNTER 2019-10-28 11:06 | Day surgery (SDC) | payer SELFPAY ==
[~2019-10-28 11:06] MED LIST changes: +DEXTROSE 5% IVPB SCH; +Dexamethasone 20 MG in Sodium Chloride 0.9% 50 ML IVPB SCH; +IRINOTECAN IVPB SCH; +OXALIPLATIN IVPB SCH; -PEGFILGRASTIM-JMDB 6 MG/0.6 ML SYRINGE SQ SCH; +Palonosetron HCl 0.25 MG in Sodium Chloride 0.9% 50 ML IVPB SCH; +SODIUM CHLORIDE 0.9% IVPB SCH; +WATER IVPB SCH
[2019-10-28] MEDS: Atropine Sulfate 0.25 MG in Sodium Chloride 0.9% 50 ML IVPB SCH ×2 (11:18→11:37)
[2019-10-28] MEDS: Dexamethasone Sod Phosphate 20 MG in Sodium Chloride 0.9% 50 ML IVPB SCH ×2 (11:19→11:36)
[2019-10-28] MEDS ORDERED: Sodium Chloride 0.9% 20 ML ONE (11:21)
[2019-10-28 11:50] VITALS: BP 107/58; TEMP 98.1
== END 2019-10-28 16:33 | disposition home or self-care (01) ==
LOC: ONC/OP 11:06
PROVIDERS: ATTEND Internal Medicine Hematology & Oncology
DX: Z51.11 Encounter for antineoplastic chemotherapy (principal); C50.411 Malignant neoplasm of upper-outer quadrant of right female breast; C78.6 Secondary malignant neoplasm of retroperitoneum and peritoneum
CPT/HCPCS: 96366; 96375; 96413; 96417; J0461; J0640; J1100; J1453; J2469; J3490; J7050; J7070; J9206; J9263

== ENCOUNTER 2019-10-31 12:18 | Day surgery (SDC) | payer SELFPAY ==
[~2019-10-31 12:18] MED LIST changes: -DEXTROSE 5% IVPB SCH; -Dexamethasone 20 MG in Sodium Chloride 0.9% 50 ML IVPB SCH; -IRINOTECAN IVPB SCH; -OXALIPLATIN IVPB SCH; +PEGFILGRASTIM-JMDB 6 MG/0.6 ML SYRINGE SQ SCH; -Palonosetron HCl 0.25 MG in Sodium Chloride 0.9% 50 ML IVPB SCH; -SODIUM CHLORIDE 0.9% IVPB SCH; -WATER IVPB SCH
[2019-10-31 12:29] VITALS: BP 113/65; TEMP 98.5
== END 2019-10-31 12:33 | disposition home or self-care (01) ==
LOC: ONC/OP 12:18
PROVIDERS: ATTEND Internal Medicine Hematology & Oncology
DX: Z51.11 Encounter for antineoplastic chemotherapy (principal); C50.411 Malignant neoplasm of upper-outer quadrant of right female breast; C78.6 Secondary malignant neoplasm of retroperitoneum and peritoneum
CPT/HCPCS: 96372; Q5108

== ENCOUNTER 2019-11-11 09:29 | Day surgery (SDC) | payer SELFPAY ==
[~2019-11-11 09:29] MED LIST changes: +Atropine Sulfate 0.25 MG in Sodium Chloride 0.9% 50 ML IVPB SCH; +DEXTROSE 5% IVPB SCH; +Dexamethasone Sod Phosphate 20 MG in Sodium Chloride 0.9% 50 ML IVPB SCH; +IRINOTECAN IVPB SCH; +OXALIPLATIN IVPB SCH; -PEGFILGRASTIM-JMDB 6 MG/0.6 ML SYRINGE SQ SCH; +Palonosetron HCl 0.25 MG in Sodium Chloride 0.9% 50 ML IVPB SCH; +SODIUM CHLORIDE 0.9% IVPB SCH; +WATER IVPB SCH
[2019-11-11] MEDS ORDERED: Sodium Chloride 0.9% 20 ML ONE (09:47)
[2019-11-11 10:02] VITALS: BP 98/65; TEMP 98.5
== END 2019-11-11 16:34 | disposition home or self-care (01) ==
LOC: ONC/OP 09:29
PROVIDERS: ATTEND Internal Medicine Hematology & Oncology
DX: Z51.11 Encounter for antineoplastic chemotherapy (principal); C50.411 Malignant neoplasm of upper-outer quadrant of right female breast; C78.6 Secondary malignant neoplasm of retroperitoneum and peritoneum
CPT/HCPCS: 96366; 96375; 96413; 96415; 96416; 96417; J0461; J0640; J1100; J1453; J2469; J3490; J7050; J7070; J9206; J9263

== ENCOUNTER 2019-11-14 13:21 | Day surgery (SDC) | payer SELFPAY ==
[2019-11-14] MEDS ORDERED: PEGFILGRASTIM-JMDB 6 MG/0.6 ML SYRINGE ONE (13:30)
== END 2019-11-14 14:12 | disposition home or self-care (01) ==
LOC: ONC/OP 13:21
PROVIDERS: ATTEND Internal Medicine Hematology & Oncology
DX: Z51.12 Encounter for antineoplastic immunotherapy (principal); C50.411 Malignant neoplasm of upper-outer quadrant of right female breast; C78.6 Secondary malignant neoplasm of retroperitoneum and peritoneum
CPT/HCPCS: 96372; Q5108

== ENCOUNTER → 2019-11-25 | Day surgery (SDC) | payer OTHER, SELFPAY ==
[~2019-11-25] MED LIST changes: +Sodium Chloride 0.9% 20 ML ONE
[2019-11-25 15:57] VITALS: BP 104/60; TEMP 99
== END ==
LOC: ONC/OP 11:31
PROVIDERS: ATTEND Internal Medicine Hematology & Oncology
DX: Z51.11 Encounter for antineoplastic chemotherapy (principal); C50.411 Malignant neoplasm of upper-outer quadrant of right female breast; C78.6 Secondary malignant neoplasm of retroperitoneum and peritoneum
CPT/HCPCS: 96367; 96375; 96413; 96415; 96417; J0461; J0640; J1100; J1453; J2469; J3490; J7050; J7070; J9206; J9263

== ENCOUNTER 2019-11-28 12:53 | Day surgery (SDC) | payer OTHER ==
[~2019-11-28 12:53] MED LIST changes: -Atropine Sulfate 0.25 MG in Sodium Chloride 0.9% 50 ML IVPB SCH; -DEXTROSE 5% IVPB SCH; -Dexamethasone Sod Phosphate 20 MG in Sodium Chloride 0.9% 50 ML IVPB SCH; -IRINOTECAN IVPB SCH; -OXALIPLATIN IVPB SCH; +PEGFILGRASTIM-JMDB 6 MG/0.6 ML SYRINGE SQ SCH; -Palonosetron HCl 0.25 MG in Sodium Chloride 0.9% 50 ML IVPB SCH; -SODIUM CHLORIDE 0.9% IVPB SCH; -Sodium Chloride 0.9% 20 ML ONE; -WATER IVPB SCH
== END 2019-11-28 13:08 | disposition home or self-care (01) ==
LOC: ONC/OP 12:53
PROVIDERS: ATTEND Internal Medicine Hematology & Oncology
DX: C50.411 Malignant neoplasm of upper-outer quadrant of right female breast (principal); C78.6 Secondary malignant neoplasm of retroperitoneum and peritoneum
CPT/HCPCS: 96372; Q5108

== ENCOUNTER 2019-12-09 10:46 | Day surgery (SDC) | payer OTHER, SELFPAY ==
[~2019-12-09 10:46] MED LIST changes: +Atropine Sulfate 0.25 MG in Sodium Chloride 0.9% 50 ML IVPB SCH; +DEXTROSE 5% IVPB SCH; +Dexamethasone Sod Phosphate 20 MG in Sodium Chloride 0.9% 50 ML IVPB SCH; +IRINOTECAN IVPB SCH; +OXALIPLATIN IVPB SCH; -PEGFILGRASTIM-JMDB 6 MG/0.6 ML SYRINGE SQ SCH; +Palonosetron HCl 0.25 MG in Sodium Chloride 0.9% 50 ML IVPB SCH; +SODIUM CHLORIDE 0.9% IVPB SCH; +WATER IVPB SCH
[2019-12-09] MEDS ORDERED: Sodium Chloride 0.9% 20 ML ONE (11:17)
[2019-12-09 12:00] VITALS: BP 106/63; TEMP 98.8
== END 2019-12-09 16:02 | disposition home or self-care (01) ==
LOC: ONC/OP 10:46
PROVIDERS: ATTEND Internal Medicine Hematology & Oncology
DX: Z51.11 Encounter for antineoplastic chemotherapy (principal); C50.411 Malignant neoplasm of upper-outer quadrant of right female breast; C78.6 Secondary malignant neoplasm of retroperitoneum and peritoneum
CPT/HCPCS: 96367; 96375; 96413; 96415; 96417; J0461; J0640; J1100; J1453; J2469; J3490; J7050; J7070; J9206; J9263

== ENCOUNTER 2019-12-12 13:39 | Day surgery (SDC) | payer OTHER ==
[~2019-12-12 13:39] MED LIST changes: -Atropine Sulfate 0.25 MG in Sodium Chloride 0.9% 50 ML IVPB SCH; -DEXTROSE 5% IVPB SCH; -Dexamethasone Sod Phosphate 20 MG in Sodium Chloride 0.9% 50 ML IVPB SCH; -IRINOTECAN IVPB SCH; -OXALIPLATIN IVPB SCH; +PEGFILGRASTIM-JMDB 6 MG/0.6 ML SYRINGE SQ SCH; -Palonosetron HCl 0.25 MG in Sodium Chloride 0.9% 50 ML IVPB SCH; -SODIUM CHLORIDE 0.9% IVPB SCH; -WATER IVPB SCH
[2019-12-12 16:45] VITALS: BP 101/67; TEMP 98.7
== END 2019-12-12 16:47 | disposition home or self-care (01) ==
LOC: ONC/OP 13:39
PROVIDERS: ATTEND Internal Medicine Hematology & Oncology
DX: C50.411 Malignant neoplasm of upper-outer quadrant of right female breast (principal); C78.6 Secondary malignant neoplasm of retroperitoneum and peritoneum
CPT/HCPCS: 96372; Q5108

== ENCOUNTER 2019-12-23 10:32 | Day surgery (SDC) | payer OTHER ==
[~2019-12-23 10:32] MED LIST changes: +Atropine Sulfate 0.25 MG in Sodium Chloride 0.9% 50 ML IVPB SCH; +DEXTROSE 5% IVPB SCH; +Dexamethasone Sod Phosphate 20 MG in Sodium Chloride 0.9% 50 ML IVPB SCH; +IRINOTECAN IVPB SCH; +OXALIPLATIN IVPB SCH; -PEGFILGRASTIM-JMDB 6 MG/0.6 ML SYRINGE SQ SCH; +Palonosetron HCl 0.25 MG in Sodium Chloride 0.9% 50 ML IVPB SCH; +SODIUM CHLORIDE 0.9% IVPB SCH; +WATER IVPB SCH
[2019-12-23] MEDS ORDERED: Sodium Chloride 0.9% 20 ML ONE (10:38)
[2019-12-23 12:41] VITALS: BP 124/73; TEMP 99.3
== END 2019-12-23 15:44 | disposition home or self-care (01) ==
LOC: ONC/OP 10:32
PROVIDERS: ATTEND Internal Medicine Hematology & Oncology
DX: Z51.11 Encounter for antineoplastic chemotherapy (principal); C50.411 Malignant neoplasm of upper-outer quadrant of right female breast; C78.6 Secondary malignant neoplasm of retroperitoneum and peritoneum
CPT/HCPCS: 96367; 96375; 96413; 96415; 96417; J0461; J0640; J1100; J1453; J2469; J3490; J7050; J7070; J9206; J9263

== ENCOUNTER 2019-12-26 12:28 | Day surgery (SDC) | payer OTHER ==
[~2019-12-26 12:28] MED LIST changes: -Atropine Sulfate 0.25 MG in Sodium Chloride 0.9% 50 ML IVPB SCH; -DEXTROSE 5% IVPB SCH; -Dexamethasone Sod Phosphate 20 MG in Sodium Chloride 0.9% 50 ML IVPB SCH; -IRINOTECAN IVPB SCH; -OXALIPLATIN IVPB SCH; +PEGFILGRASTIM-JMDB 6 MG/0.6 ML SYRINGE SQ SCH; -Palonosetron HCl 0.25 MG in Sodium Chloride 0.9% 50 ML IVPB SCH; -SODIUM CHLORIDE 0.9% IVPB SCH; -WATER IVPB SCH
[2019-12-26 12:45] VITALS: BP 112/69; TEMP 98
== END 2019-12-26 12:45 | disposition home or self-care (01) ==
LOC: ONC/OP 12:28
PROVIDERS: ATTEND Internal Medicine Hematology & Oncology
DX: C50.411 Malignant neoplasm of upper-outer quadrant of right female breast (principal); C78.6 Secondary malignant neoplasm of retroperitoneum and peritoneum
CPT/HCPCS: 96372; Q5108

== ENCOUNTER 2020-01-06 10:10 | Day surgery (SDC) | payer OTHER ==
[~2020-01-06 10:10] MED LIST changes: +Atropine Sulfate 0.25 MG in Sodium Chloride 0.9% 50 ML IVPB SCH; +DEXTROSE 5% IVPB SCH; +Dexamethasone Sod Phosphate 20 MG in Sodium Chloride 0.9% 50 ML IVPB SCH; +IRINOTECAN IVPB SCH; +OXALIPLATIN IVPB SCH; -PEGFILGRASTIM-JMDB 6 MG/0.6 ML SYRINGE SQ SCH; +Palonosetron HCl 0.25 MG in Sodium Chloride 0.9% 50 ML IVPB SCH; +SODIUM CHLORIDE 0.9% IVPB SCH; +WATER IVPB SCH
[2020-01-06 10:23] VITALS: BP 121/84; TEMP 98.9
[2020-01-06] MEDS ORDERED: Sodium Chloride 0.9% 20 ML ONE (10:36)
[2020-01-06] MEDS ORDERED: Potassium Chloride 20 MEQ in Sodium Chloride 0.9% 250 ML 250 ML IVPB SCH (14:45)
== END 2020-01-06 16:27 | disposition home or self-care (01) ==
LOC: ONC/OP 10:10
PROVIDERS: ATTEND Internal Medicine Hematology & Oncology
DX: Z51.11 Encounter for antineoplastic chemotherapy (principal); C78.6 Secondary malignant neoplasm of retroperitoneum and peritoneum; C50.411 Malignant neoplasm of upper-outer quadrant of right female breast
CPT/HCPCS: 96367; 96375; 96413; 96415; 96416; 96417; J0461; J0640; J1100; J1453; J2469; J3480; J3490; J7050; J7070; J9206; J9263

== ENCOUNTER 2020-01-09 10:43 | Outpatient (CLI) | payer OTHER ==
[~2020-01-09 10:43] MED LIST changes: -Atropine Sulfate 0.25 MG in Sodium Chloride 0.9% 50 ML IVPB SCH; -DEXTROSE 5% IVPB SCH; -Dexamethasone Sod Phosphate 20 MG in Sodium Chloride 0.9% 50 ML IVPB SCH; -IRINOTECAN IVPB SCH; +Iopamidol 370 76% 100 ML VIAL ONE; -OXALIPLATIN IVPB SCH; -Palonosetron HCl 0.25 MG in Sodium Chloride 0.9% 50 ML IVPB SCH; -SODIUM CHLORIDE 0.9% IVPB SCH; -WATER IVPB SCH
--- NOTE | 2020-01-09 13:09 | CT ---
CT OF THE CHEST AND ABDOMEN AND PELVIS WITH IV CONTRAST: INDICATION: History of right breast cancer and pancreatic neoplasm with a history of chemotherapy. COMPARISON: CT of the abdomen and pelvis dated 07/30/2019, 07/20/2019, and a CT of the chest dated 04/23/2018 and 10/25/2017. FINDINGS: CHEST: No suspicious pulmonary nodule is identified. There are scattered areas of ground-glass opacity with in both lungs which is nonspecific and can be seen with subsegmental volume loss. Area of bronchiect asis with cystic change involving the posteromedial right lower lobe is stable-appearing. There is postprocedural change of a right mastectomy. Surgical clips are seen within the right axill cedric region. No pathologically enlarged lymph nodes are seen within the right axilla or right supracl avicular location. No mediastinal, hilar, or left axillary lymphadenopathy is evident. There is a l eft subclavian chest wall port in place. There are coronary artery and thoracic aorta calcifications . ABDOMEN AND PELVIS: There is postprocedural change of a gastric bypass. There is severe fatty infiltration of the liver which has developed in the interim. The degree of in trahepatic and extrahepatic biliary ductal dilatation is markedly improved from the comparison examin ation. Previously seen external biliary drain has been removed. The hypodense mass involving the uncinate process is slightly larger in size now measuring 2.6 x 2.4 x 2.5 cm. On the most recent examination, the lesion measured approximately 1.9 x 1.5 cm. There has been interval placement of an intraductal stent within the pancreatic body. No main pancreatic duct al dilatation is noted. The mildly prominent peripancreatic lymph nodes are no longer identified. No pathologically enlarged lymph nodes are seen within the upper abdomen. Adrenal glands and right kidney are normal-appearing. There is a simple cyst involving the left kidn ey that is stable-appearing. The spleen is normal-appearing. There is a mild amount of retained stool within the colon. The reproductive structures, bladder, rec yuni, and perirectal soft tissues are normal-appearing. No free fluid or enlarged lymph nodes are evident. OSSEOUS STRUCTURES: No suspicious osteolytic or osteoblastic lesion is identified. IMPRESSION: 1. Slight interval growth of the hypodense mass involving the uncinate process of the pancreas. 2. No overt evidence to suggest the presence of distant metastatic disease. 3. Worsening fatty infiltration of the liver. 4. Interval placement of an intraductal stent within the pancreatic body. Previously seen external hepatic biliary stent has been removed. No intrahepatic or extrahepatic biliary ductal dilatation is grossly evident. 5. Stable bronchiectasis and scarring in the posteromedial right lower lobe. Nonspecific bilateral ground-glass opacity can be seen with subsegmental volume loss; however, mild pneumonitis cannot be e ntirely excluded based on the current imaging findings. 6. Stable left renal cyst. 7. Stable postprocedural change of cholecystectomy, gastric bypass, and right mastectomy. POS: [facility]
== END 2020-01-09 10:44 | disposition home or self-care (01) ==
LOC: CT 10:43
PROVIDERS: ATTEND Internal Medicine Hematology & Oncology
DX: C50.411 Malignant neoplasm of upper-outer quadrant of right female breast (principal); C78.6 Secondary malignant neoplasm of retroperitoneum and peritoneum; K86.89 Other specified diseases of pancreas; K76.0 Fatty (change of) liver, not elsewhere classified; Z98.890 Other specified postprocedural states; J47.9 Bronchiectasis, uncomplicated; J98.4 Other disorders of lung; N28.1 Cyst of kidney, acquired; Z90.12 Acquired absence of left breast and nipple; Z90.49 Acquired absence of other specified parts of digestive tract
CPT/HCPCS: 71260; 74177

== ENCOUNTER 2020-01-09 11:55 | Day surgery (SDC) | payer OTHER ==
[~2020-01-09 11:55] MED LIST changes: -Iopamidol 370 76% 100 ML VIAL ONE; +PEGFILGRASTIM-JMDB 6 MG/0.6 ML SYRINGE SQ SCH
[2020-01-09 12:00] VITALS: BP 155/88; TEMP 98.6
== END 2020-01-09 12:00 | disposition home or self-care (01) ==
LOC: ONC/OP 11:55
PROVIDERS: ATTEND Internal Medicine Hematology & Oncology
DX: Z51.11 Encounter for antineoplastic chemotherapy (principal); C50.411 Malignant neoplasm of upper-outer quadrant of right female breast; C78.6 Secondary malignant neoplasm of retroperitoneum and peritoneum
CPT/HCPCS: 96372; J1642; Q5108

== ENCOUNTER 2020-01-20 11:13 | Day surgery (SDC) | payer OTHER ==
[~2020-01-20 11:13] MED LIST changes: +Atropine Sulfate 0.25 MG in Sodium Chloride 0.9% 50 ML IVPB SCH; +DEXTROSE 5% IVPB SCH; +Dexamethasone Sod Phosphate 20 MG in Sodium Chloride 0.9% 50 ML IVPB SCH; +IRINOTECAN IVPB SCH; +OXALIPLATIN IVPB SCH; -PEGFILGRASTIM-JMDB 6 MG/0.6 ML SYRINGE SQ SCH; +Palonosetron HCl 0.25 MG in Sodium Chloride 0.9% 50 ML IVPB SCH; +SODIUM CHLORIDE 0.9% IVPB SCH; +WATER IVPB SCH
[2020-01-20] MEDS ORDERED: Labetalol HCl 100 MG/20 ML VIAL ONE (11:52)
[2020-01-20] MEDS ORDERED: Sodium Chloride 0.9% 20 ML ONE (11:52)
== END 2020-01-20 16:20 | disposition home or self-care (01) ==
LOC: ONC/OP 11:13
PROVIDERS: ATTEND Internal Medicine Hematology & Oncology
DX: Z51.11 Encounter for antineoplastic chemotherapy (principal); C78.6 Secondary malignant neoplasm of retroperitoneum and peritoneum; C50.411 Malignant neoplasm of upper-outer quadrant of right female breast
CPT/HCPCS: 96367; 96375; 96413; 96416; 96417; J0461; J0640; J1100; J1453; J2469; J3490; J7030; J7070; J9206; J9263

== ENCOUNTER 2020-01-23 13:28 | Day surgery (SDC) | payer OTHER ==
[~2020-01-23 13:28] MED LIST changes: -Atropine Sulfate 0.25 MG in Sodium Chloride 0.9% 50 ML IVPB SCH; -DEXTROSE 5% IVPB SCH; -Dexamethasone Sod Phosphate 20 MG in Sodium Chloride 0.9% 50 ML IVPB SCH; -IRINOTECAN IVPB SCH; -OXALIPLATIN IVPB SCH; +PEGFILGRASTIM-JMDB 6 MG/0.6 ML SYRINGE SQ SCH; -Palonosetron HCl 0.25 MG in Sodium Chloride 0.9% 50 ML IVPB SCH; -SODIUM CHLORIDE 0.9% IVPB SCH; -WATER IVPB SCH
[2020-01-23 14:01] VITALS: BP 115/66; TEMP 98.8
== END 2020-01-23 14:43 | disposition home or self-care (01) ==
LOC: ONC/OP 13:28
PROVIDERS: ATTEND Internal Medicine Hematology & Oncology
DX: Z51.11 Encounter for antineoplastic chemotherapy (principal); C50.411 Malignant neoplasm of upper-outer quadrant of right female breast; C78.6 Secondary malignant neoplasm of retroperitoneum and peritoneum
CPT/HCPCS: 96372; Q5108

== ENCOUNTER → 2020-02-03 | Day surgery (SDC) | payer OTHER ==
[~2020-02-03] MED LIST changes: +Atropine Sulfate 0.25 MG in Sodium Chloride 0.9% 50 ML IVPB SCH; +DEXTROSE 5% IVPB SCH; +Dexamethasone Sod Phosphate 20 MG in Sodium Chloride 0.9% 50 ML IVPB SCH; +IRINOTECAN IVPB SCH; +OXALIPLATIN IVPB SCH; -PEGFILGRASTIM-JMDB 6 MG/0.6 ML SYRINGE SQ SCH; +Palonosetron HCl 0.25 MG in Sodium Chloride 0.9% 50 ML IVPB SCH; +SODIUM CHLORIDE 0.9% IVPB SCH; +WATER IVPB SCH
[2020-02-03 11:30] VITALS: BP 132/69; TEMP 98.4
== END ==
LOC: ONC/OP 11:15
PROVIDERS: ATTEND Internal Medicine Hematology & Oncology
DX: Z51.11 Encounter for antineoplastic chemotherapy (principal); C50.411 Malignant neoplasm of upper-outer quadrant of right female breast; C78.6 Secondary malignant neoplasm of retroperitoneum and peritoneum; Z17.0 Estrogen receptor positive status [ER+]
CPT/HCPCS: 96367; 96375; 96413; 96415; 96416; 96417; J0461; J0640; J1100; J1453; J2469; J3490; J7030; J7070; J9206; J9263

== ENCOUNTER → 2020-02-06 | Day surgery (SDC) | payer OTHER ==
[~2020-02-06] MED LIST changes: +Acetaminophen 500 MG TAB PO SCH; -Atropine Sulfate 0.25 MG in Sodium Chloride 0.9% 50 ML IVPB SCH; -DEXTROSE 5% IVPB SCH; -Dexamethasone Sod Phosphate 20 MG in Sodium Chloride 0.9% 50 ML IVPB SCH; -IRINOTECAN IVPB SCH; -OXALIPLATIN IVPB SCH; +PEGFILGRASTIM-JMDB 6 MG/0.6 ML SYRINGE SQ SCH; -Palonosetron HCl 0.25 MG in Sodium Chloride 0.9% 50 ML IVPB SCH; -SODIUM CHLORIDE 0.9% IVPB SCH; +Sodium Chloride 0.9% 20 ML ONE; -WATER IVPB SCH; +diphenhydrAMINE 25 MG CAP PO SCH
[2020-02-06 15:10] VITALS: BP 119/72; TEMP 98.8
[2020-02-06 15:49] LABS: Mean Corpuscular HGB CONC 32.9 g/dL (32.0-36.0); Mean Platelet Volume 9.3 fL (7.4-10.4); Platelet Count 192 thou/uL (130-400); RBC Distribution Width 16.3 % (11.5-14.5); Red Blood Cell (RBC) Count 2.56 mill/uL (4.20-5.40); White Blood Cell (WBC) Count 14.3 thou/uL (4.8-10.8)
[2020-02-06 16:08] LABS: Anisocytosis SLIGHT = 6-15 cells (100X) (0-5/hpf); Band 7 % (5-11); Lymphocytes 17 % (21-51); MDiff Complete? YES; Macrocytosis SLIGHT = 6-15 cells (100X) (0-5/hpf); Neutrophil 76 % (42-75); Platelet Morphology Comment Appears Adequate; Polychromasia SLIGHT = 2-3 cells (100X) (0-2/hpf)
== END ==
LOC: ONC/OP 11:12
PROVIDERS: ATTEND Internal Medicine Hematology & Oncology
PROC: 30233N1 Transfusion of Nonautologous Red Blood Cells into Peripheral Vein, Percutaneous Approach (ICD-10-PCS; principal; 2020-02-06)
DX: D64.9 Anemia, unspecified (principal); D69.6 Thrombocytopenia, unspecified; C50.411 Malignant neoplasm of upper-outer quadrant of right female breast; C78.6 Secondary malignant neoplasm of retroperitoneum and peritoneum
CPT/HCPCS: 36430; 85025; 86850; 86900; 86901; 96372; J1642; P9016; Q0163; Q5108

== ENCOUNTER 2020-02-17 11:43 | Day surgery (SDC) | payer OTHER ==
[~2020-02-17 11:43] MED LIST changes: -Acetaminophen 500 MG TAB PO SCH; +Atropine Sulfate 0.25 MG in Sodium Chloride 0.9% 50 ML IVPB SCH; +DEXTROSE 5% IVPB SCH; +Dexamethasone Sod Phosphate 20 MG in Sodium Chloride 0.9% 50 ML IVPB SCH; +IRINOTECAN IVPB SCH; +OXALIPLATIN IVPB SCH; -PEGFILGRASTIM-JMDB 6 MG/0.6 ML SYRINGE SQ SCH; +Palonosetron HCl 0.25 MG in Sodium Chloride 0.9% 50 ML IVPB SCH; +SODIUM CHLORIDE 0.9% IVPB SCH; -Sodium Chloride 0.9% 20 ML ONE; +WATER IVPB SCH; -diphenhydrAMINE 25 MG CAP PO SCH
[2020-02-17 12:00] VITALS: BP 135/66; TEMP 99.2
== END 2020-02-17 16:54 | disposition home or self-care (01) ==
LOC: ONC/OP 11:43
PROVIDERS: ATTEND Internal Medicine Hematology & Oncology
DX: Z51.11 Encounter for antineoplastic chemotherapy (principal); C50.411 Malignant neoplasm of upper-outer quadrant of right female breast; C78.6 Secondary malignant neoplasm of retroperitoneum and peritoneum; Z79.899 Other long term (current) drug therapy
CPT/HCPCS: 96367; 96375; 96413; 96415; 96416; 96417; J0461; J0640; J1100; J1453; J2469; J3490; J7030; J7070; J9206; J9263

== ENCOUNTER 2020-02-20 09:46 | Day surgery (SDC) | payer OTHER ==
[~2020-02-20 09:46] MED LIST changes: -Atropine Sulfate 0.25 MG in Sodium Chloride 0.9% 50 ML IVPB SCH; -DEXTROSE 5% IVPB SCH; -Dexamethasone Sod Phosphate 20 MG in Sodium Chloride 0.9% 50 ML IVPB SCH; -IRINOTECAN IVPB SCH; -OXALIPLATIN IVPB SCH; +PEGFILGRASTIM-JMDB 6 MG/0.6 ML SYRINGE SQ SCH; -Palonosetron HCl 0.25 MG in Sodium Chloride 0.9% 50 ML IVPB SCH; -SODIUM CHLORIDE 0.9% IVPB SCH; -WATER IVPB SCH
[2020-02-20 10:53] VITALS: BP 124/75; TEMP 98.7
== END 2020-02-20 10:54 | disposition home or self-care (01) ==
LOC: ONC/OP 09:46
PROVIDERS: ATTEND Internal Medicine Hematology & Oncology
DX: C50.411 Malignant neoplasm of upper-outer quadrant of right female breast (principal); C78.6 Secondary malignant neoplasm of retroperitoneum and peritoneum
CPT/HCPCS: 96372; Q5108

== ENCOUNTER 2020-03-02 12:17 | Day surgery (SDC) | payer OTHER ==
[~2020-03-02 12:17] MED LIST changes: +Atropine Sulfate 0.25 MG in Sodium Chloride 0.9% 50 ML IVPB SCH; +DEXTROSE 5% IVPB SCH; +Dexamethasone Sod Phosphate 20 MG in Sodium Chloride 0.9% 50 ML IVPB SCH; +IRINOTECAN IVPB SCH; +OXALIPLATIN IVPB SCH; -PEGFILGRASTIM-JMDB 6 MG/0.6 ML SYRINGE SQ SCH; +Palonosetron HCl 0.25 MG in Sodium Chloride 0.9% 50 ML IVPB SCH; +SODIUM CHLORIDE 0.9% IVPB SCH; +WATER IVPB SCH
[2020-03-02] MEDS ORDERED: Sodium Chloride 0.9% 20 ML ONE (12:27)
[2020-03-02 13:13] VITALS: BP 127/68; TEMP 98.6
== END 2020-03-02 17:17 | disposition home or self-care (01) ==
LOC: ONC/OP 12:17
PROVIDERS: ATTEND Internal Medicine Hematology & Oncology
DX: Z51.11 Encounter for antineoplastic chemotherapy (principal); C50.411 Malignant neoplasm of upper-outer quadrant of right female breast; C78.6 Secondary malignant neoplasm of retroperitoneum and peritoneum
CPT/HCPCS: 96367; 96375; 96413; 96415; 96416; 96417; J0461; J0640; J1100; J1453; J2469; J3490; J7030; J7070; J9206; J9263

== ENCOUNTER 2020-03-05 12:01 | Day surgery (SDC) | payer OTHER ==
[~2020-03-05 12:01] MED LIST changes: -Atropine Sulfate 0.25 MG in Sodium Chloride 0.9% 50 ML IVPB SCH; -DEXTROSE 5% IVPB SCH; -Dexamethasone Sod Phosphate 20 MG in Sodium Chloride 0.9% 50 ML IVPB SCH; -IRINOTECAN IVPB SCH; -OXALIPLATIN IVPB SCH; +PEGFILGRASTIM-JMDB 6 MG/0.6 ML SYRINGE SQ SCH; -Palonosetron HCl 0.25 MG in Sodium Chloride 0.9% 50 ML IVPB SCH; -SODIUM CHLORIDE 0.9% IVPB SCH; -WATER IVPB SCH
== END 2020-03-05 12:09 | disposition home or self-care (01) ==
LOC: ONC/OP 12:01
PROVIDERS: ATTEND Internal Medicine Hematology & Oncology
DX: C50.411 Malignant neoplasm of upper-outer quadrant of right female breast (principal); C78.6 Secondary malignant neoplasm of retroperitoneum and peritoneum
CPT/HCPCS: 96372; Q5108

== ENCOUNTER 2020-03-16 09:39 | Day surgery (SDC) | payer OTHER ==
[~2020-03-16 09:39] MED LIST changes: +Atropine Sulfate 0.25 MG in Sodium Chloride 0.9% 50 ML IVPB SCH; +DEXTROSE 5% IVPB SCH; +Dexamethasone Sod Phosphate 20 MG in Sodium Chloride 0.9% 50 ML IVPB SCH; +IRINOTECAN IVPB SCH; +OXALIPLATIN IVPB SCH; -PEGFILGRASTIM-JMDB 6 MG/0.6 ML SYRINGE SQ SCH; +Palonosetron HCl 0.25 MG in Sodium Chloride 0.9% 50 ML IVPB SCH; +SODIUM CHLORIDE 0.9% IVPB SCH; +WATER IVPB SCH
[2020-03-16] MEDS ORDERED: Sodium Chloride 0.9% 20 ML ONE (09:55)
[2020-03-16 10:04] VITALS: BP 112/72; TEMP 98.1
== END 2020-03-16 15:41 | disposition home or self-care (01) ==
LOC: ONC/OP 09:39
PROVIDERS: ATTEND Internal Medicine Hematology & Oncology
DX: Z51.11 Encounter for antineoplastic chemotherapy (principal); C50.411 Malignant neoplasm of upper-outer quadrant of right female breast; C78.6 Secondary malignant neoplasm of retroperitoneum and peritoneum
CPT/HCPCS: 96367; 96375; 96413; 96415; 96416; 96417; J0461; J0640; J1100; J1453; J2469; J3490; J7030; J7070; J9206; J9263

== ENCOUNTER 2020-03-19 12:36 | Day surgery (SDC) | payer OTHER ==
[~2020-03-19 12:36] MED LIST changes: -Atropine Sulfate 0.25 MG in Sodium Chloride 0.9% 50 ML IVPB SCH; -DEXTROSE 5% IVPB SCH; -Dexamethasone Sod Phosphate 20 MG in Sodium Chloride 0.9% 50 ML IVPB SCH; -IRINOTECAN IVPB SCH; -OXALIPLATIN IVPB SCH; +PEGFILGRASTIM-JMDB 6 MG/0.6 ML SYRINGE SQ SCH; -Palonosetron HCl 0.25 MG in Sodium Chloride 0.9% 50 ML IVPB SCH; -SODIUM CHLORIDE 0.9% IVPB SCH; -WATER IVPB SCH
[2020-03-19 12:59] VITALS: BP 130/74; TEMP 97.7
== END 2020-03-19 12:59 | disposition home or self-care (01) ==
LOC: ONC/OP 12:36
PROVIDERS: ATTEND Internal Medicine Hematology & Oncology
DX: C50.411 Malignant neoplasm of upper-outer quadrant of right female breast (principal); C78.6 Secondary malignant neoplasm of retroperitoneum and peritoneum
CPT/HCPCS: 96372; Q5108

== ENCOUNTER 2020-05-10 00:32 | Inpatient (IN) | payer MEDICAID, OTHER ==
[2020-05-10] MEDS ORDERED: Ondansetron PF 4 MG/2 ML Vial ONE (01:20)
[2020-05-10] MEDS ORDERED: Morphine 4 MG/ML VIAL ONE (01:20)
[2020-05-10 01:48] LABS: #Lymphocytes 0.7 thou/uL (1.20-3.40); #Monocytes 0.4 thou/uL (0.11-0.59); #Neutrophils 9.7 thou/uL (1.40-6.50); %Basophils 0.2 % (0.0-1.0); %Eosinophils 0.1 % (0.0-10.0); %Monocytes 3.9 % (0.0-10.0); %Neutrophils 89.9 % (42.0-75.0); Hemoglobin 10.9 g/dL (12.0-16.0); MDiff Complete? YES; Macrocytosis SLIGHT = 6-15 cells (100X) (0-5/hpf); Mean Corpuscular HGB CONC 34.1 g/dL (32.0-36.0); Mean Corpuscular Hemoglobin 36.3 pg (27.0-31.0); Mean Platelet Volume 9.3 fL (7.4-10.4); Platelet Count 221 thou/uL (130-400); RBC Distribution Width 12.6 % (11.5-14.5); White Blood Cell (WBC) Count 10.8 thou/uL (4.8-10.8)
[2020-05-10 01:50] LABS: ALT (SGPT) 39 U/L (8-55); AST (SGOT) 72 U/L (5-34); Alkaline Phosphatase 241 U/L (40-110); Anion Gap 14 mmol/L (10-20); BUN (Urea Nitrogen) 18 mg/dL (9.8-20.1); Bilirubin, Total 0.6 mg/dL (0.2-1.2); Calc. Creatinine Clearance 0 mL/min (70-130); Calcium 8.1 mg/dL (7.8-10.44); Carbon Dioxide 21 mmol/L (23-31); Chloride 106 mmol/L (98-107); Estimated GFR-MDRD 76; Globulin 2.9 g/dL (2.4-3.5); Glucose 113 mg/dL (80-115); Lipase 402 U/L (8-78); Potassium 3.6 mmol/L (3.5-5.1); Protein, Total 5.9 g/dL (6.0-8.3); Sodium 137 mmol/L (136-145)
[2020-05-10 02:05] LABS: Bacteria/HPF None Seen HPF (None Seen); Bilirubin Negative (Negative); Blood, Urine 1+ (Negative); Clarity Clear (Clear); Glucose, Urine (Dipstick) Normal (Negative); Ketone, Urine Negative (Negative); Leukocyte Negative Leu/uL (Negative); Nitrite Negative (Negative); Protein, Urine (Dipstick) Negative (Neg-Trace); Specific Gravity, Urine 1.019 (1.002-1.036); Squamous Epithelial 0-3 HPF (0-3); Urobilinogen Normal mg/dL (Less than 2); WBC/HPF 0-3 HPF (0-3)
[2020-05-10] MEDS ORDERED: HYDROcodone/Acetaminophen 5/325 mg Tablet PO PRN ×2 (02:55)
[2020-05-10] MEDS ORDERED: Ondansetron PF 4 MG/2 ML Vial IVP PRN (02:55)
[2020-05-10] MEDS ORDERED: Ondansetron ODT 4 MG TAB PO PRN (02:55)
[2020-05-10] MEDS ORDERED: Acetaminophen 650 MG Suppository PR PRN (02:55)
--- NOTE | 2020-05-10 03:30 | PDOC.HHP ---
Hospitalist HPI - History of Present Illness History of Present Illness: Case of an 70y/o female with pmhx of breat CA years ago and pancreatic cancer who comes to hospital due to abdominal pain. patient refers she was on her usual state of health until today when she started with abdominal pain. patient states she ate a fish and a few hours later she started with the abdominal pain. she describes the pain as colicky, 7/10 of intensity that radiated to her back was associated with nausea but no vomiting. pt denies any fever chills dysuria or diarrhea. She has a history of pancreatic cancer s/p surgery and chemo. Last chemo was in March 2020. Her surgery was approximately 8 months ago, and from her description seems like a whipple procedure. Hospitalist ROS - Review of Systems All other systems reviewed; all pertinent +/- noted in HPI/Subj Hospitalist History - Past Surgical History Past Surgical History: reports: Cholecystectomy, Mastectomy Other Surgical History: whipple disease? - Family History Family History: reports: cancer - Social History Smoking Status: Never smoker Alcohol: reports: None Drugs: reports: none - Exam General Appearance: NAD, awake alert Eye: PERRL, anicteric sclera ENT: normocephalic atraumatic, no oropharyngeal lesions Neck: supple, symmetric, no JVD Heart: RRR, no murmur, no gallops Respiratory: CTAB, no wheezes, no rales Gastrointestinal: soft, non-tender, non-distended Extremities: no cyanosis, no clubbing, no edema Skin: normal turgor, no lesions, no rashes Neurological: cranial nerve grossly intact, normal sensation to touch Musculoskeletal: normal tone, normal strength, no muscle wasting Psychiatric: normal affect, normal behavior, A&O x 3 Hospitalist Results - Labs Result Diagrams: 05/10/20 01:19 05/10/20 01:19 Lab results: WBC 10.8 thou/uL (4.8-10.8) 05/10/20 01:19 Hgb 10.9 g/dL (12.0-16.0) L 05/10/20 01:19 Hct 32.0 % (36.0-47.0) L 05/10/20 01:19 MCV 107.0 fL (78.0-98.0) H 05/10/20 01:19 Plt Count 221 thou/uL (130-400) 05/10/20 01:19 Neutrophils % 89.9 % (42.0-75.0) H 05/10/20 01:19 Sodium 137 mmol/L (136-145) 05/10/20 01:19 Potassium 3.6 mmol/L (3.5-5.1) 05/10/20 01:19 Chloride 106 mmol/L (98-107) 05/10/20 01:19 Carbon Dioxide 21 mmol/L (23-31) L 05/10/20 01:19 BUN 18 mg/dL (9.8-20.1) 05/10/20 01:19 Creatinine 0.76 mg/dL (0.6-1.1) 05/10/20 01:19 Glucose 113 mg/dL (80-115) 05/10/20 01:19 Calcium 8.1 mg/dL (7.8-10.44) 05/10/20 01:19 Total Bilirubin 0.6 mg/dL (0.2-1.2) 05/10/20 01:19 AST 72 U/L (5-34) H 05/10/20 01:19 ALT 39 U/L (8-55) 05/10/20 01:19 Alkaline Phosphatase 241 U/L (40-110) H 05/10/20 01:19 Troponin I Less than 0.010 ng/mL (< 0.028) 05/10/20 01:19 Serum Total Protein 5.9 g/dL (6.0-8.3) L 05/10/20 01:19 Albumin 3.0 g/dL (3.4-4.8) L 05/10/20 01:19 Lipase 402 U/L (8-78) H 05/10/20 01:19 Urine Ketones Negative mg/dL (Negative) 05/10/20 01:35 Urine Blood 1+ (Negative) A 05/10/20 01:35 Urine Nitrite Negative (Negative) 05/10/20 01:35 Ur Leukocyte Esterase Negative Jerel/uL (Negative) 05/10/20 01:35 Urine RBC 4-6 HPF (0-3) A 05/10/20 01:35 Urine WBC 0-3 HPF (0-3) 05/10/20 01:35 Ur Squamous Epith Cells 0-3 HPF (0-3) 05/10/20 01:35 Urine Bacteria None Seen HPF (None Seen) 05/10/20 01:35 Hospitalist H&P A/P - Problem (1) Acute pancreatitis Code(s): K85.90 - ACUTE PANCREATITIS WITHOUT NECROSIS OR INFECTION, UNSP Status: Acute (2) Breast cancer Status: Acute (3) Pancreatic cancer Status: Acute - Plan Plan: 70y/o with the stated pmhx who comes with acute pancreatitis. a pancreatitis - ivfs fluids - pain management - lipase in the 400s, x3 elevation from normal - npo - unclear reason, will order lipid panel, s/p cholecystectomy, could be related to cancer - normal bili, no gallbladder wall thickening or ductual dilatation
[2020-05-10] MEDS: Sodium Chloride 0.9% 1,000 ML IV SCH ×4 (04:13→19:29)
[2020-05-10 04:40] VITALS: BMI 28.4
[2020-05-10 05:07] LABS: ALT (SGPT) 35 U/L (8-55); AST (SGOT) 79 U/L (5-34); Albumin 2.6 g/dL (3.4-4.8); Alkaline Phosphatase 207 U/L (40-110); Anion Gap 8 mmol/L (10-20); BUN (Urea Nitrogen) 18 mg/dL (9.8-20.1); Bilirubin, Total 0.5 mg/dL (0.2-1.2); Calc. Creatinine Clearance 88 mL/min (70-130); Calcium 7.5 mg/dL (7.8-10.44); Carbon Dioxide 22 mmol/L (23-31); Cardiac Risk 4.5 (Less than 4.5); Chloride 107 mmol/L (98-107); Cholesterol 118 mg/dl (< 200 Desired); Estimated GFR-MDRD 86; Globulin 2.8 g/dL (2.4-3.5); Glucose 106 mg/dL (80-115); HDL Cholesterol 26 mg/dL (>60 Neg Risk); LDL Cholesterol, Calculated 79 mg/dL; Lipase 311 U/L (8-78); Potassium 3.3 mmol/L (3.5-5.1); Protein, Total 5.4 g/dL (6.0-8.3); Sodium 134 mmol/L (136-145); Triglycerides 64 mg/dL (Less than 150)
[2020-05-10 05:17] LABS: Band 14 % (5-11); Hemoglobin 9.8 g/dL (12.0-16.0); Lymphocytes 10 % (21-51); MDiff Complete? YES; Mean Corpuscular HGB CONC 32.3 g/dL (32.0-36.0); Mean Corpuscular Hemoglobin 34.8 pg (27.0-31.0); Mean Platelet Volume 9.5 fL (7.4-10.4); Monocytes 8 % (0-10); Neutrophil 68 % (42-75); Platelet Count 187 thou/uL (130-400); RBC Distribution Width 12.7 % (11.5-14.5); Red Blood Cell (RBC) Count 2.82 mill/uL (4.20-5.40); White Blood Cell (WBC) Count 12.2 thou/uL (4.8-10.8)
--- NOTE | 2020-05-10 08:45 | CT ---
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 PT REPORTS NAUSEA WITH "DRY HEAVES". PT HAS PANCREATIC CA AND FINISHED CH EMO IN MARCH. TECHNIQUE: Axial computed tomography images of the abdomen and pelvis with intravenous contrast. CONTRAST: With; ISOVUE 370,100mL COMPARISON: CT chest, abdomen and pelvis 01/09/2020. FINDINGS: LUNG BASES: No basilar airspace consolidation or pleural effusion. Medial basilar right lower lobe scarring is u nchanged. LIVER: Diffuse low-attenuation of the liver compatible with hepatic steatosis. GALLBLADDER AND BILE DUCTS: Surgically absent gallbladder. No ductal dilation. PANCREAS: There is a stent within the pancreatic duct. There is peripancreatic stranding. SPLEEN: Unremarkable. ADRENAL GLANDS: Unremarkable. KIDNEYS, URETERS, AND BLADDER: Unremarkable. No hydronephrosis or nephrolithiasis. No ureteral or bladder calculi. STOMACH AND BOWEL: There are postsurgical changes at the gastroesophageal junction and there is a gastrojejunal anastomo sis. There is mild wall thickening suggested in the proximal stomach. There is no obstruction. Contra st reaches distal small bowel. There is stool within the colon. There is possible colonic wall thick ening at the splenic flexure. APPENDIX: No CT evidence for appendicitis. PERITONEUM: Rounded fluid density nodule measuring 2.2 cm between the inferior tip of the liver and right kidney (axial image 38). No free air. No abscess. LYMPH NODES: No lymphadenopathy. REPRODUCTIVE: Unremarkable as visualized. VASCULATURE: No aortic aneurysm. BONES: No fracture or suspicious osseous abnormality. ABDOMINAL WALL AND SOFT TISSUES: Bilateral fat-containing inguinal hernias. Midline vertical abdominal wall incision. IMPRESSION: 1. Stranding surrounding the pancreas. This is nonspecific and could be related to pancreatitis or may be treatment related. 2. Possible wall thickening within the proximal stomach and colonic splenic flexure. This could be inflammatory, infectious or treatment related. 3. No evidence of bowel obstruction. 4. 2.2 cm fluid density nodule adjacent to the inferior tip of the right hepatic lobe which is nonsp ecific, however further attention to this finding on follow-up is suggested. ELECTRONICALLY SIGNED BY: Phi Rubi M.D. May 10, 2020 2:38:27 AM CDT This report is intended for review by the ordering physician only, in accordance of law. If you recei ve this report in error, please call [facility] at [phone]. FINAL REPORT EMERGENCY AFTER HOURS ABDOMEN AND PELVIC CT SCAN WITH IV CONTRAST: DATE: 05/10/2020 TIME: 0209 HOURS COMPARISON: 01/09/2020. FINDINGS/IMPRESSION: Extensive fatty changes of the liver. Extensive postoperative changes in the upper abdomen. Stable mi nimal parenchymal changes in the right lower lobe. Interval development of fairly diffuse, mostly per ipancreatic but upper abdominal mesenteric fat stranding with a small amount of fluid at the tip of t he spleen, and also a small, somewhat more rounded focal area of fluid density near the inferior tip of the right lobe of the liver, as well as some very minimal fluid within the pelvis. Stable left ivy al cyst. Stable bilateral fat-containing inguinal hernias. Stable small stent within the region of th e body of the pancreas. Correlate with pancreatic enzymes in regards to possible acute pancreatitis. This report is in agreement with preliminary report by [facility]. POS: OFF
[2020-05-10] MEDS ORDERED: Enoxaparin Sodium 40 MG/0.4 ML SYRINGE SC SCH (09:00)
[2020-05-10] MEDS ORDERED: Famotidine/PF 20 mg/2ml Vial SLOW IVP SCH (09:00)
[2020-05-10] MEDS ORDERED: Morphine 2 MG/ML VIAL SLOW IVP PRN (11:16)
[2020-05-10] MEDS ORDERED: Iopamidol-370 76% 500 ML 1 ML ONE (11:47)
[2020-05-10 11:56] LABS: SARS-CoV-2 MS2 Positive; SARS-CoV-2 N Gene Negative; SARS-CoV-2 S Gene Negative; SARS-CoV-2 by NAA Not Detected (NotDetected); SARS-CoV-2 orf1ab Negative
[2020-05-10] MEDS ORDERED: Piperacillin/Tazobactam 3.375 GM in Sodium Chloride 0.9% 100 ML IVPB SCH (12:00)
[2020-05-10] MEDS: Acetaminophen 325 MG TAB PO PRN ×2 (13:32→20:51)
--- NOTE | 2020-05-10 17:11 | PDOC.HOSPP ---
- Subjective Encounter Date: 05/10/20 Subjective: Continues to have some intermittent abdominal pain. Reports the pain medicines are adequate. - Objective Vital Signs & Weight: Vital Signs (12 hours) Temp Pulse Resp BP Pulse Ox 05/10/20 15:50 99.0 F 78 16 83/44 L 94 L 05/10/20 12:00 98.0 F 77 16 100/57 L 95 05/10/20 08:10 98.6 F 75 16 92/57 L 95 05/10/20 08:00 95 Weight Weight 155 lb 6 oz I&O: 05/09/20 05/10/20 05/11/20 06:59 06:59 06:59 Intake Total 120 Balance 120 Result Diagrams: 05/10/20 04:23 05/10/20 04:23 Hospitalist ROS - Medication Medications: Active Medications Generic Name Dose Route Start Last Admin Trade Name Freq PRN Reason Stop Dose Admin Acetaminophen 650 mg 05/10/20 02:55 05/10/20 13:32 Tylenol PO 650 mg Q4H PRN Administration Headache/Fever/Mild Pain (1-3) Ondansetron HCl 4 mg 05/10/20 02:55 05/10/20 04:46 Zofran IVP 4 mg Q6H PRN Administration Nausea/Vomiting - Exam General Appearance: NAD, awake alert Heart: RRR, no murmur, no gallops, no rubs, normal peripheral pulses Respiratory: CTAB, no wheezes, no rales, no ronchi, normal chest expansion, no tachypnea, normal percussion Gastrointestinal: soft, non-distended, normal bowel sounds, no palpable masses, no hepatomegaly, no splenomegaly, no bruit, tender to palpation (Epigastrium and slightly in the left lower quadrant) Extremities: no cyanosis, no clubbing, no edema Skin: normal turgor Musculoskeletal: normal tone, normal strength, no muscle wasting Psychiatric: normal affect, normal behavior, A&O x 3 Hosp A/P (1) Acute pancreatitis Code(s): K85.90 - ACUTE PANCREATITIS WITHOUT NECROSIS OR INFECTION, UNSP Status: Acute (2) Pancreatic cancer Status: Acute (3) History of breast cancer Code(s): Z85.3 - PERSONAL HISTORY OF MALIGNANT NEOPLASM OF BREAST Status: Resolved (4) History of DVT (deep vein thrombosis) Code(s): Z86.718 - PERSONAL HISTORY OF OTHER VENOUS THROMBOSIS AND EMBOLISM Status: Resolved - Plan Acute pancreatitis: Continue IV fluids, pain medications and n.p.o. status. Discussed with GI who in turn had discussed the situation with the patient surgeon in [place]. Patient has a stent within the pancreatic duct. The surgeon indicated that the patient will likely have pancreatitis from time to time that should be mild and resolved. If it does not or if it recurs too frequently they would take her back in [place] and have 1 of their GI doctors remove it. Abdominal pain: CT suggest the possibility of some inflammation within the colon. Antibiotics were started to cover that although it seems less likely at this point. History of DVT: Continue with Eliquis.
--- NOTE | 2020-05-10 22:45 | CON ---
DATE OF CONSULTATION: REASON FOR CONSULT: Pancreatic cancer. HISTORY OF PRESENT ILLNESS: Ms. 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 She had a Whipple procedure with multiple positive lymph nodes in August of 2019. She completed 6 months of FOLFIRINOX chemotherapy in March of 2020. 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 She is ER positive. She presented to the emergency room with acute abdominal pain. She underwent a CT of the abdomen and pelvis, which showed a pancreatic duct stent with stranding. There was a wall thickening within the proximal stomach and colonic splenic flexure. The patient is having mild nausea , but no vomiting. Denies any fever or chills. She has had a normal bowel movement and is passing gas. PAST MEDICAL HISTORY: 1. Pancreatic cancer. 2. Invasive ductal carcinoma of the right breast. 3. Pulmonary embolism. PAST SURGICAL HISTORY: 1. Cholecystectomy. 2. Whipple procedure. ALLERGIES: NO KNOWN DRUG ALLERGIES. HOME MEDICATIONS: 1. Protonix. 2. Anastrozole. 3. Eliquis 5 mg b.i.d. FAMILY HISTORY: Sister had unknown cancer. SOCIAL HISTORY: Single. Lives with her daughter. No alcohol, tobacco, or illicit drug use. REVIEW OF SYSTEMS: Positive for abdominal pain, but otherwise negative. PHYSICAL EXAMINATION: VITAL SIGNS: Temperature is 98.0, pulse is 77, respiratory rate 16, BP is 100/ 57. She is 95% on room air. GENERAL: This is a well-developed, well-nourished female, in no acute distress. HEENT: Normocephalic, atraumatic. Pupils are equal and reactive to light. NECK: Supple. CV: Regular rate and rhythm. LUNGS: Clear. ABDOMEN: Mildly tender to palpation in the periumbilical and right upper quadrant. EXTREMITIES: No clubbing or cyanosis. SKIN: No rash. HEMATOLOGICAL: No petechiae or purpura. NEUROLOGICAL: Nonfocal. PERTINENT LABORATORY DATA AND X-RAYS: Current WBCs 10.8, hemoglobin 10.9, hematocrit 32, platelet count 221,000 with 89% neutrophils, 6% lymphocytes. Sodium 134, potassium 3.3, chloride 107, CO2 is 22, BUN is 18, creatinine 0.68, calcium 7.5, bilirubin 0.5, AST 79, ALT is 35, alkaline phosphatase is 207. Serum total protein is 5.4, albumin 2.6, globulin 2.8, lipase is 311. COVID negative. Radiology per HPI. ASSESSMENT: 1. Acute abdominal pain. 2. History of pancreatic cancer. 3. History of breast cancer. DISCUSSION: The patient is awaiting consultation from the GI physician. She is NPO and having minimal pain at this time. We would continue her anastrozole and p.r.n. pain medications and we will follow her hospital course remotely. Thank you for the consult. Job ID: [id number] [facility]
[2020-05-11 05:26] LABS: #Eosinphils 0.1 thou/uL (0.0-0.7); #Lymphocytes 1.3 thou/uL (1.20-3.40); #Monocytes 0.4 thou/uL (0.11-0.59); #Neutrophils 2.3 thou/uL (1.40-6.50); %Basophils 0.3 % (0.0-1.0); %Eosinophils 3.7 % (0.0-10.0); %Lymphocytes 31.3 % (21.0-51.0); %Monocytes 8.7 % (0.0-10.0); %Neutrophils 56.1 % (42.0-75.0); Hemoglobin 9.9 g/dL (12.0-16.0); Mean Corpuscular HGB CONC 31.9 g/dL (32.0-36.0); Mean Corpuscular Hemoglobin 34.6 pg (27.0-31.0); Mean Platelet Volume 9.3 fL (7.4-10.4); Platelet Count 175 thou/uL (130-400); RBC Distribution Width 12.8 % (11.5-14.5); Red Blood Cell (RBC) Count 2.87 mill/uL (4.20-5.40); White Blood Cell (WBC) Count 4.1 thou/uL (4.8-10.8)
[2020-05-11 05:48] LABS: ALT (SGPT) 30 U/L (8-55); AST (SGOT) 57 U/L (5-34); Albumin 2.4 g/dL (3.4-4.8); Alkaline Phosphatase 184 U/L (40-110); Anion Gap 9 mmol/L (10-20); BUN (Urea Nitrogen) 14 mg/dL (9.8-20.1); Bilirubin, Total 0.6 mg/dL (0.2-1.2); Calc. Creatinine Clearance 102 mL/min (70-130); Calcium 7.9 mg/dL (7.8-10.44); Carbon Dioxide 22 mmol/L (23-31); Chloride 112 mmol/L (98-107); Estimated GFR-MDRD Greater than 90; Globulin 2.8 g/dL (2.4-3.5); Glucose 71 mg/dL (80-115); Iron 60 ug/dL (50-170); Iron 63 ug/dL (50-170); Iron Binding Capacity, Total 219 mcg/dL (265-497); Iron Binding Capacity, Total 220 mcg/dL (265-497); Lipase 86 U/L (8-78); Potassium 3.4 mmol/L (3.5-5.1); Protein, Total 5.2 g/dL (6.0-8.3); Sodium 140 mmol/L (136-145)
--- NOTE | 2020-05-11 06:36 | CON ---
DATE OF CONSULTATION: 05/10/2020 REASON FOR CONSULTATION: Pancreatitis and abdominal pain. HISTORY OF PRESENT ILLNESS: Ms. De Los Santos is a pleasant 70-year-old female, who was admitted to the hospital early this morning, presenting with abdominal pain. Apparently, she had some nausea as well, started around 7:30 last night. She had eaten dinner around 4:30, began to be ill after that. Apparently, the pain was quite bad according to the patient's daughter when it first started and then let up over time. She had a CAT scan in the emergency room, confirming changes of pancreatitis and also picture of postsurgical changes of Whipple procedure, which the patient had last year after being diagnosed with pancreatic malignancy. The patient's white count was 10.8 at 1 a.m., it was 12 at 4:23. Hemoglobin had dropped from 10.9 to 9.8, platelets 187 from 221. BUN and creatinine were relatively the same at 18 and 0.7 to 18 and 0.6. AST was 79, ALT 35, alkaline phosphatase 207, bilirubin 0.5, albumin 2.6, protein 5.4. She had a lipase of 402 at 1:00 in the morning today and then 311 at 4:23. Presently, she is voiding. She is n.p.o. She states she is feeling a little better. PAST MEDICAL HISTORY: Pancreatic cancer diagnosed in July of last year when she presented with biliary obstruction, she at that time had a PTC. She underwent a Whipple in August and did have positive nodes. I have talked to her surgeon today and he states that he left intraoperative stent in the pancreas, which is what they commonly do. Previous mastectomy also for breast cancer. She had some reflux in the past. History of blood clots, apparently she had clot diagnosed and pulmonary embolism in 09/2019. PAST SURGICAL HISTORY: Cholecystectomy, hernia repair, mastectomy, and Whipple procedure. FAMILY HISTORY: Negative for malignancies per the patient's daughter. SOCIAL HISTORY: The patient denies alcohol, drugs, or tobacco. MEDICATIONS: Presently, she is on; 1. Tylenol. 2. Pepcid. 3. [place]. 4. Morphine p.r.n. 5. Zofran p.r.n. 6. Zosyn. 7. Normal saline at 100. Home medications; 1. Protonix. 2. Eliquis. 3. Arimidex. PHYSICAL EXAMINATION: GENERAL: The patient is resting in bed. She is feeling comfortable now. VITAL SIGNS: Temperature 98, pulse 77, blood pressure 100/57. LUNGS: Clear. HEART: Regular rate and rhythm without clicks or murmurs. ABDOMEN: Soft and nontender. There is no rebound. There is no guarding. Well-healed scar is noted in the upper abdomen. EXTREMITIES: Reveal no clubbing, cyanosis, or edema. ASSESSMENT: 1. Pancreatitis, mild, likely related to the pancreatic stent that was left in place at the time of her surgery. I have talked with her surgeon, Dr. Jose Saini at [phone]. He states that they do occasionally see this at times. If it becomes a repetitive thing, they will usually have one of their GI ship pilot remove the stent. Presently, she has no severe features of inflammation or renal failure. 2. Pancreatic cancer. She had positive nodes diagnosed. She has had some adjuvant chemotherapy and radiation. She is at very high risk for recurrence. We will defer further workup and evaluation of that to Oncology. There are not any overt signs of this at this time. RECOMMENDATIONS: 1. Continue IV fluids, would bump to 125 an hour. 2. Continue n.p.o. 3. PPI for ulcer prophylaxis. 4. Stop antibiotics. There is no indication for these. 5. If the patient improves on her own, we will advance diet slowly as tolerated. If she has recurrent flares, we will have to sent her down to [place] to [facility] to her surgeon to have one of the interventional gastrologists remove the stent from her PD. That is going to be a more complicated procedure as she has had a Whipple procedure with Allyssa-en-Y, hepaticojejunostomyand jejunopancreatotomy. Job ID: [id number]
[2020-05-11 06:56] LABS: Ferritin 124.16 ng/mL (10-291)
[2020-05-11] MEDS: Apixaban 5 MG TAB PO SCH ×2 (08:05→21:18)
[2020-05-11] MEDS: Acetaminophen 325 MG TAB PO PRN ×2 (08:05→14:43)
[2020-05-11] MEDS: Sodium Chloride 0.9% 1,000 ML IV SCH ×2 (08:06→16:32)
--- NOTE | 2020-05-11 12:22 | PDOC.HOSPP ---
- Subjective Encounter Date: 05/11/20 Subjective: Feeling better. Only has a little discomfort in the left lower quadrant area and right flank area, but these are mild. No N/V. Not really hungry. - Objective Vital Signs & Weight: Vital Signs (12 hours) Temp Pulse Resp BP Pulse Ox 05/11/20 08:00 98.6 F 90 16 126/66 94 L Weight Weight 155 lb 6 oz I&O: 05/10/20 05/11/20 05/12/20 06:59 06:59 06:59 Intake Total 120 1375 Balance 120 1375 Result Diagrams: 05/11/20 05:12 05/11/20 05:12 Hospitalist ROS - Medication Medications: Active Medications Generic Name Dose Route Start Last Admin Trade Name Freq PRN Reason Stop Dose Admin Acetaminophen 650 mg 05/10/20 02:55 05/11/20 08:05 Tylenol PO 650 mg Q4H PRN Administration Headache/Fever/Mild Pain (1-3) Apixaban 5 mg 05/11/20 09:00 05/11/20 08:05 Eliquis PO 5 mg BID RAJANI Administration Sodium Chloride 1,000 mls @ 125 mls/hr 05/10/20 16:31 05/11/20 08:06 Normal Saline 0.9% IV 1,000 mls .Q8H RAJANI Administration Ondansetron HCl 4 mg 05/10/20 02:55 05/10/20 04:46 Zofran IVP 4 mg Q6H PRN Administration Nausea/Vomiting - Exam General Appearance: NAD, awake alert Heart: RRR, no murmur, no gallops, no rubs, normal peripheral pulses Respiratory: CTAB, no wheezes, no rales, no ronchi, normal chest expansion, no tachypnea, normal percussion Gastrointestinal: soft, non-distended, normal bowel sounds, no palpable masses, no guarding, tender to palpation (LLQ, mild.) Extremities: no cyanosis, no clubbing, no edema Skin: normal turgor Neurological: cranial nerve grossly intact, normal sensation to touch, no weakness, no focal deficits, no new deficit Musculoskeletal: normal tone, normal strength, no muscle wasting Psychiatric: normal affect, normal behavior, A&O x 3 Hosp A/P (1) Acute pancreatitis Code(s): K85.90 - ACUTE PANCREATITIS WITHOUT NECROSIS OR INFECTION, UNSP Status: Acute (2) Pancreatic cancer Status: Acute (3) History of breast cancer Code(s): Z85.3 - PERSONAL HISTORY OF MALIGNANT NEOPLASM OF BREAST Status: Resolved (4) History of DVT (deep vein thrombosis) Code(s): Z86.718 - PERSONAL HISTORY OF OTHER VENOUS THROMBOSIS AND EMBOLISM Status: Resolved - Plan Acute pancreatitis: Continue IV fluids, pain medications and n.p.o. status. Discussed with GI who in turn had discussed the situation with the patient surgeon in [place]. Patient has a stent within the pancreatic duct. The surgeon indicated that the patient will likely have pancreatitis from time to time that should be mild and resolved. If it does not or if it recurs too frequently they would take her back in [place] and have 1 of their GI doctors remove it. Currrently appears to be doing better. Will start clears and advance to full liquids as she tolerates. Lipase is much improved. Abdominal pain: CT suggest the possibility of some inflammation within the colon. Antibiotics were started to cover that although it seems less likely at this point. History of DVT: Continue with Eliquis.
--- NOTE | 2020-05-11 15:00 | PDOC.MOPN ---
Interval History: abdominal pain much better, taking po well. - Vital Signs Vital Signs: Vital Signs (12 hours) Temp Pulse Resp BP Pulse Ox 05/11/20 12:00 98.6 F 78 16 121/76 95 05/11/20 08:00 98.6 F 90 16 126/66 94 L Weight Weight 155 lb 6 oz - Physical Exam General: Alert, Oriented x3, No acute distress HEENT: Atraumatic, PERRLA, EOMI, Mucous membr. moist/pink Lungs: Clear to auscultation, Normal air movement Cardiovascular: Regular rate, Normal S1, Normal S2, No murmurs, Gallops, Rubs Abdomen: Normal bowel sounds, Soft, No tenderness, No hepatospenomegaly, No masses Extremities: No clubbing, No cyanosis, No edema, Normal pulses, No tenderness/ swelling Skin: No rashes, No breakdown, No significant lesion Neurological: Normal gait, Normal speech, Strength at 5/5 X4 ext, Normal tone, Sensation intact, Cranial nerves 3-12 NL, Reflexes 2+ Psych/Mental Status: Mental status NL, Mood NL - Labs Result Diagrams: 05/11/20 05:12 05/11/20 05:12 Lab results: Laboratory Results - last 24 hr 05/11/20 05:12: Folate 11.90 05/11/20 05:12: Ferritin 124.16, Vitamin B12 969 H 05/11/20 05:12: Iron 60, TIBC 219 L, % Saturation 27 05/11/20 05:12: WBC 4.1 L, RBC 2.87 L, Hgb 9.9 L, Hct 31.2 L, MCV 109.0 H, MCH 34.6 H, MCHC 31.9 L, RDW 12.8, Plt Count 175, MPV 9.3, Neutrophils % 56.1, Lymphocytes % 31.3, Monocytes % 8.7, Eosinophils % 3.7, Basophils % 0.3, Neutrophils # 2.3, Lymphocytes # 1.3, Monocytes # 0.4, Eosinophils # 0.1, Basophils # 0.0 05/11/20 05:12: Sodium 140, Potassium 3.4 L, Chloride 112 H, Carbon Dioxide 22 L , Anion Gap 9 L, BUN 14, Creatinine 0.59 L, Estimated GFR (MDRD) Greater than 90, Glucose 71 L, Calcium 7.9, Iron 63, TIBC 220 L, Total Bilirubin 0.6, AST 57 H, ALT 30, Alkaline Phosphatase 184 H, Serum Total Protein 5.2 L, Albumin 2.4 L , Globulin 2.8, Albumin/Globulin Ratio 0.9 L, Lipase 86 H Status: lab reviewed by me A/P - Problem (1) Anemia Current Visit: Yes Code(s): D64.9 - ANEMIA, UNSPECIFIED Status: Acute (2) Acute pancreatitis Current Visit: Yes Code(s): K85.90 - ACUTE PANCREATITIS WITHOUT NECROSIS OR INFECTION, UNSP Status: Acute (3) Pancreatic cancer Current Visit: Yes Status: Acute - Plan Plan: no intervention for anemia, chronic since chemo will sign off follow-up in clinic next week.
--- NOTE | 2020-05-11 17:47 | PRG ---
DATE OF SERVICE: 05/11/2020 SUBJECTIVE: Ms. De Los Santos has no abdominal pain today. No nausea or vomiting. OBJECTIVE: VITAL SIGNS: Temperature is 98.6, pulse 78, blood pressure 121/76. GENERAL: She is in no acute distress. Alert and oriented x3. LUNGS: Clear to auscultation bilaterally. HEART: Regular rate and rhythm without murmur. ABDOMEN: Soft. Minimal tenderness in the epigastric region without guarding. Bowel sounds are present. EXTREMITIES: No lower extremity edema. LABORATORY DATA: White blood cell count 4.1, hemoglobin 9.9, platelets 175. Creatinine 0.59, lipase today is 86, ferritin 124, iron 60, TIBC 219. IMPRESSION: 1. Acute pancreatitis, likely secondary to the retained stent in the pancreatic duct, status post Whipple procedure. Due to the risk for recurrent pancreatitis and potentially scarring of the pancreatic duct, follow up in [place] to remove the stent has been recommended. At this point, her pain has resolved and she is feeling well. 2. Pancreatic cancer, status post Whipple procedure. However, lymph nodes were reportedly positive and risk of recurrence is high. RECOMMENDATIONS: 1. Advance to a low-fat diet. 2. If she tolerates the low-fat diet well, then she can likely discharge home tomorrow and follow up in [place] as an outpatient to have the stent removed. 3. If her pain flares with advancement of the diet, then recommend transfer to [facility] with her pancreatic surgeon, Dr. Jiang and the GI department who can remove her pancreatic stent. Job ID: [id number]
[2020-05-11 20:08] VITALS: TEMP 98.8
[2020-05-12] MEDS: Sodium Chloride 0.9% 1,000 ML IV SCH ×2 (00:30→09:13)
[2020-05-12 07:46] VITALS: BP 128/86
[2020-05-12] MEDS: Apixaban 5 MG TAB PO SCH (09:13)
--- NOTE | 2020-05-13 15:06 | DIS ---
DATE OF ADMISSION: 05/10/2020 DATE OF DISCHARGE: 05/12/2020 DISCHARGE DIAGNOSES: 1. Acute pancreatitis. 2. History of pancreatic cancer. 3. Breast cancer. 4. History of deep vein thrombosis. HISTORY: The patient is a 70-year-old female with a history of pancreatic cancer, who had undergone a Whipple's procedure with multiple positive lymph nodes in August of 2019. She completed 6 months of FOLFIRINOX chemotherapy in March. She also was on anastrozole for T2 N1 M0 invasive ductal carcinoma of the right breast. She had presented to the emergency department with abdominal pain and CT scan showed pancreatic duct stent with some peripancreatic stranding as well as some wall thickening of the proximal stomach and colonic splenic flexure, which could have been related to pancreatic inflammatory changes. She had an elevated lipase and was diagnosed with acute pancreatitis. HOSPITAL COURSE: The patient was admitted to the hospital, started on IV pain medications as well as IV hydration and made n.p.o. She subsequently has had improvement of her pain and her lipase came down. She was seen in consultation by Oncology and GI. GI provider spoke to her surgeon in [place], who indicated she would likely have occasional relatively mild bouts of pancreatitis that should resolve relatively quickly. He recommended stay in the course of treatment and if she got worse or did not resolve to send her back to [place] to consider having GI remove the stents. However, the patient did improve fairly promptly and was able to go back on a diet, which she tolerated well and had no additional pain. With that, she was felt to be stable for discharge to home. PHYSICAL EXAMINATION: VITAL SIGNS: On the day of discharge, temperature is 98.8, pulse 73, respirations 18, O2 saturation 94% to 98% on room air, and blood pressure is 128/86. GENERAL APPEARANCE: Age-appropriate female, in no distress. Awake and alert. HEART: Regular. LUNGS: Clear. ABDOMEN: Benign. EXTREMITIES: No edema. DISPOSITION: The patient is discharged to home. DIET: She is to have a regular diet, but try to keep the low fat as possible. ACTIVITY: As tolerated. MEDICATIONS: She will be on, 1. Anastrozole 1 mg daily. 2. Pantoprazole 40 mg daily. 3. Eliquis 5 mg b.i.d. FOLLOWUP: She is to follow up with Dr. Kvng Lunsford and she can return to the hospital at anytime she has any need to do so. TIME SPENT: Total time in discharge activities was greater than 30 minutes. Job ID: [id number]
== END 2020-05-12 11:42 | disposition home or self-care (01) | DRG 919 ==
LOC: ERS 00:32 → ONC 02:58
PROVIDERS: ADMIT Internal Medicine; ATTEND Internal Medicine
DX: T85.898A Other specified complication of other internal prosthetic devices, implants and grafts, initial encounter (principal); K85.80 Other acute pancreatitis without necrosis or infection; D64.9 Anemia, unspecified; Z20.828 Contact with and (suspected) exposure to other viral communicable diseases; Z85.07 Personal history of malignant neoplasm of pancreas; Z86.711 Personal history of pulmonary embolism; Z85.3 Personal history of malignant neoplasm of breast; Z79.01 Long term (current) use of anticoagulants; Z79.899 Other long term (current) drug therapy; Z86.718 Personal history of other venous thrombosis and embolism; Z90.49 Acquired absence of other specified parts of digestive tract; Y83.1 Surgical operation with implant of artificial internal device as the cause of abnormal reaction of the patient, or of later complication, without mention of misadventure at the time of the procedure
CPT/HCPCS: 74177; 80053; 80061; 81003; 81015; 82607; 82728; 82746; 83540; 83550; 83690; 84484; 85025; 87635; 93005; 96361; 96374; 96375; J1642; J2270; J2405; J2543; J3490; Q9967; S0028; U0003

== ENCOUNTER 2020-06-28 13:37 | Outpatient (CLI) | payer MEDICAID, OTHER ==
--- NOTE | 2020-06-28 14:09 | MMO ---
Left Breast MAMMO Unilat Diag DDI LT+[place]. CLINICAL HISTORY: Patient is 70 years old and is seen for diagnostic exam. The patient has no family history of breast cancer. The patient has a history of right Mastectomy in June, - malignant. VIEWS: The views performed were: left craniocaudal with tomosynthesis; left mediolateral oblique with tomosynthesis; and left mediolateral with tomosynthesis. FILMS COMPARED: The present examination has been compared to prior imaging studies performed at [facility] on 06/26/2018 and 06/27/2019, and at [facility] on 05/14/2017. This study has been interpreted with the assistance of computer-aided detection. MAMMOGRAM FINDINGS: There are scattered fibroglandular densities. There are benign appearing calcifications in the left breast. There are no suspicious masses, suspicious calcifications, or new areas of architectural distortion. IMPRESSION: THERE IS NO MAMMOGRAPHIC EVIDENCE OF MALIGNANCY. A ROUTINE FOLLOW-UP MAMMOGRAM IN 1 YEAR IS RECOMMENDED. THE RESULTS OF THIS EXAM WERE SENT TO THE PATIENT. ACR BI-RADS Category 2 - Benign finding MAMMOGRAPHY NOTE: 1. A negative mammogram report should not delay a biopsy if a dominant of clinically suspicious mass is present. 2. Approximately 10% to 15% of breast cancers are not detected by mammography. 3. Adenosis and dense breasts may obscure an underlying neoplasm. Reported by: LUIS ANGEL BUCIO MD Electonically Signed: [id number]
== END 2020-06-28 13:38 | disposition home or self-care (01) ==
LOC: BICMAMMO 13:37
PROVIDERS: ATTEND Internal Medicine Hematology & Oncology
DX: C50.911 Malignant neoplasm of unspecified site of right female breast (principal); C78.6 Secondary malignant neoplasm of retroperitoneum and peritoneum; Z90.11 Acquired absence of right breast and nipple
CPT/HCPCS: G0279

== ENCOUNTER 2020-10-06 09:10 | Outpatient (CLI) | payer OTHER ==
--- NOTE | 2020-10-06 14:31 | CT ---
CT CHEST, ABDOMEN AND PELVIS WITH IV CONTRAST: ORAL CONTRAST WAS ADMINISTERED. 10/06/20 INDICATIONS: Malignant neoplasm of right breast. Pancreatic neoplasm. Rising CA-19-9. COMPARISON: Comparison made to prior exam of 01/09/20. CT CHEST: Images through the lower neck and upper chest revealed numerous new necrotic lymph nodes in the left lower neck/upper chest, supraclavicular and infraclavicular region extending into the left mediastinu m. These are located at the level of the left thyroid lobe and extend inferior into the substernal re gion of the upper mediastinum. This cluster of numerous necrotic lymph nodes measure up to 1.5 cm. The mediastinum is otherwise stable in appearance with nonspecific paratracheal and carinal lymph no jeffrey which are subcentimeter. No hilar adenopathy. The lung acevedo remain clear. No infiltrate or effu aleks. No evidence of pulmonary nodule. Streaky atelectasis in the right lung base extending to the pl eural surface with several small blebs along this pleural surface posteromedially on the right appear s stable. Bony thorax appears unremarkable. Numerous clips in the right axilla without axillary adeno suzanna. Post right mastectomy change. IMPRESSION: There is a cluster of new necrotic lymph nodes in the lower left neck upper left mediastinum consiste nt with malignant adenopathy. Numerous lymph nodes in this cluster measure up to 1.[address] ABDOMEN AND PELVIS: The liver shows low attenuation consistent with hepatic steatosis which was noted previously. Postope rative changes involving the stomach with sliding diaphragmatic hernia appears stable. Spleen is unre markable. There is new free fluid in the left upper quadrant surrounding the spleen and under the left hemidiap hragm when compared to the recent study. There is mesenteric edema and peripancreatic fluid seen toda y. Changes of gastric bypass procedure again noted. Heterogeneity in the region of the uncinate process is seen; however, the uncinate process mass noted previously has decreased in size and is not definitely discernible today. The adjacent duodenum violet g the uncinate process is again seen which appears unchanged. The pancreatic stent within the body of the pancreas noted on the prior exam has been removed. Post cholecystectomy clips are again noted. There are new lymph nodes seen in the upper abdomen. There is a 1.5 cm node at the gastrohepatic shiela on just to the left of the celiac artery bifurcation. Just inferior, there are small periaortic lymph nodes measuring 1.5 cm seen in the aortocaval region at the level of the celiac artery origin. The adrenal glands and kidneys unremarkable and unchanged. The left renal cystic lesion is stable. There is now an anterior abdominal wall hernia which is new from the recent exam. This is at the leve l of the umbilicus. The hernia sac within the subcutaneous tissues measures up to 9 cm width. Small b owel herniates into this defect into the subcutaneous adipose and there is dilatation of the proximal small bowel to this hernia which suggests partial obstruction as result of this anterior abdominal w all hernia. Large volume stool throughout the colon consistent with constipation. Aorta is calcified but with normal caliber. Images through the pelvis show free fluid in the pelvis which is new from the prior exam. The uterus and adnexa unremarkable. Urinary bladder unremarkable. IMPRESSION: 1. New anterior abdominal wall hernia. Small bowel loops herniate into this defect and this appe ars to be producing low grade small bowel obstruction. 2. New adenopathy in the upper abdomen as described with new ascites in the upper abdomen and pe lvis. 3. Mass in the head of the pancreas is less pronounced today. 4. Severe hepatic steatosis again noted. Call is made to Dr. Javier's office at time of this dictation for notification of the apparent parti al small bowel obstruction. Spoke with Dr. Breen POS: JODI
== END 2020-10-06 09:11 | disposition home or self-care (01) ==
LOC: BICCT 09:10
PROVIDERS: ATTEND Internal Medicine Hematology & Oncology
DX: C50.411 Malignant neoplasm of upper-outer quadrant of right female breast (principal); C78.6 Secondary malignant neoplasm of retroperitoneum and peritoneum; K43.9 Ventral hernia without obstruction or gangrene; R59.0 Localized enlarged lymph nodes; R18.8 Other ascites; K76.0 Fatty (change of) liver, not elsewhere classified; K86.89 Other specified diseases of pancreas
CPT/HCPCS: 71260; 74177

== ENCOUNTER 2020-11-11 09:01 | Day surgery (SDC) | payer OTHER ==
[~2020-11-11 09:01] MED LIST changes: +ADMIXTURE FEE CHEMO IVPB SCH; +Dexamethasone 10 MG, Ondansetron 2MG/ML MDV 10 MG in Sodium Chloride 0.9% 50 ML IVPB SCH; +Dexamethasone Sod Phosphate 10 MG, Ondansetron 2MG/ML MDV 10 MG in Sodium Chloride 0.9%... IVPB SCH; +GEMCITABINE HCL IVPB SCH; +PACLITAXEL PROTEIN BOUND IVPB SCH; -PEGFILGRASTIM-JMDB 6 MG/0.6 ML SYRINGE SQ SCH; +SODIUM CHLORIDE 0.9% IVPB SCH
[2020-11-11] MEDS ORDERED: Sodium Chloride 0.9% 20 ML ONE (09:28)
[2020-11-11 12:37] VITALS: BP 114/68; TEMP 98.6
== END 2020-11-11 12:40 | disposition home or self-care (01) ==
LOC: ONC/OP 09:01
PROVIDERS: ATTEND Internal Medicine Hematology & Oncology
DX: Z51.11 Encounter for antineoplastic chemotherapy (principal); C50.411 Malignant neoplasm of upper-outer quadrant of right female breast; C78.6 Secondary malignant neoplasm of retroperitoneum and peritoneum
CPT/HCPCS: 96375; 96413; 96417; J1100; J1642; J2405; J7050; J9201

== ENCOUNTER → 2020-11-17 | Day surgery (SDC) | payer MEDICAID, OTHER ==
[~2020-11-17] MED LIST changes: -ADMIXTURE FEE CHEMO IVPB SCH; -Dexamethasone 10 MG, Ondansetron 2MG/ML MDV 10 MG in Sodium Chloride 0.9% 50 ML IVPB SCH; -Dexamethasone Sod Phosphate 10 MG, Ondansetron 2MG/ML MDV 10 MG in Sodium Chloride 0.9%... IVPB SCH; -GEMCITABINE HCL IVPB SCH; +Lidocaine 1% PF 5 ML VIAL ONE; -PACLITAXEL PROTEIN BOUND IVPB SCH; -SODIUM CHLORIDE 0.9% IVPB SCH; +Sodium Bicarbonate 2.5 MEQ/5 ML VIAL ONE
[2020-11-17 10:47] VITALS: BMI 27.3
[2020-11-17 12:48] LABS: INR-International Normal Ratio 0.9; PTT 29.9 sec (22.9-36.1); Prothrombin Time 12.8 sec (12.0-14.7)
[2020-11-17 13:02] LABS: Hemoglobin 10.7 g/dL (12.0-16.0); Mean Corpuscular HGB CONC 33.6 g/dL (32.0-36.0); Mean Platelet Volume 7.5 fL (7.4-10.4); Platelet Count 159 thou/uL (130-400); RBC Distribution Width 11.6 % (11.5-14.5); Red Blood Cell (RBC) Count 3.05 mill/uL (4.20-5.40); White Blood Cell (WBC) Count 3.9 thou/uL (4.8-10.8)
[2020-11-17 13:08] LABS: Band 3 % (5-11); Lymphocytes 23 % (21-51); MDiff Complete? YES; Monocytes 8 % (0-10); Neutrophil 64 % (42-75); Platelet Morphology Comment Appears Adequate; RBC Morphology Normal; Reactive Lymphocytes 1 % (0-10)
[2020-11-17 14:13] VITALS: BP 124/79; TEMP 98
--- NOTE | 2020-11-17 14:31 | ULT ---
Sonographic guided paracentesis HISTORY: Symptomatic ascites. FINDINGS: After explaining the procedure and answering all questions, sonographic survey showed a lar ge amount of free fluid within the abdomen. Sterile technique, buffered local anesthesia, sonographic guidance, and a right lower quadrant approa ch were used to carefully advance a 19-gauge Yueh needle and catheter into the free fluid. Catheter was left to drain a total volume of 3.3 L slightly cloudy yellow liquid. Catheter was remove d with minimal fluid remaining. Patient tolerated the procedure well and was dismissed in good condition. IMPRESSION : Technically successful sonographic guided paracentesis 3.3 L.
== END ==
LOC: ULT 12:22 → MERGE 12:22
PROVIDERS: ATTEND Internal Medicine Hematology & Oncology
PROC: BW40ZZZ Ultrasonography of Abdomen (ICD-10-PCS; principal; 2020-11-17)
PROC: 0W9G3ZZ Drainage of Peritoneal Cavity, Percutaneous Approach (ICD-10-PCS; principal; 2020-11-17)
DX: R18.8 Other ascites (principal); C50.911 Malignant neoplasm of unspecified site of right female breast; C25.9 Malignant neoplasm of pancreas, unspecified; Z79.899 Other long term (current) drug therapy
CPT/HCPCS: 36415; 49083; 85025; 85610; 85730

== ENCOUNTER 2020-11-26 11:39 | Day surgery (SDC) | payer OTHER ==
[2020-11-26] MEDS ORDERED: ADMIXTURE FEE CHEMO IVPB SCH (12:00)
[2020-11-26] MEDS ORDERED: Ondansetron 2MG/ML MDV 10 MG, Dexamethasone Sod Phosphate 10 MG in Sodium Chloride 0.9%... IVPB SCH (12:00)
[2020-11-26] MEDS ORDERED: PACLITAXEL PROTEIN BOUND IVPB SCH (12:00)
[2020-11-26] MEDS ORDERED: GEMCITABINE HCL IVPB SCH (12:00)
[2020-11-26] MEDS ORDERED: SODIUM CHLORIDE 0.9% IVPB SCH (12:00)
[2020-11-26 12:47] VITALS: BP 137/86; TEMP 99.1
[2020-11-26] MEDS ORDERED: Sodium Chloride 0.9% 20 ML ONE (12:50)
== END 2020-11-26 18:06 | disposition home or self-care (01) ==
LOC: ONC/OP 11:39
PROVIDERS: ATTEND Internal Medicine Hematology & Oncology
DX: Z51.11 Encounter for antineoplastic chemotherapy (principal); C50.411 Malignant neoplasm of upper-outer quadrant of right female breast; C78.6 Secondary malignant neoplasm of retroperitoneum and peritoneum
CPT/HCPCS: 96375; 96413; 96417; J1100; J1642; J2405; J7050; J9201

== ENCOUNTER 2020-11-30 13:50 | Day surgery (SDC) | payer OTHER ==
[2020-11-29 13:45] VITALS: BMI 26.0
[2020-11-30 14:08] LABS: #Basophils 0.1 thou/uL (0.0-0.2); #Eosinphils 0.1 thou/uL (0.0-0.7); #Lymphocytes 0.9 thou/uL (1.20-3.40); #Neutrophils 4.8 thou/uL (1.40-6.50); %Basophils 1.8 % (0.0-1.0); %Eosinophils 0.9 % (0.0-10.0); %Lymphocytes 14.9 % (21.0-51.0); %Monocytes 0.5 % (0.0-10.0); %Neutrophils 81.9 % (42.0-75.0); Hemoglobin 10.9 g/dL (12.0-16.0); Mean Corpuscular Hemoglobin 34.3 pg (27.0-31.0); Mean Platelet Volume 7.7 fL (7.4-10.4); Platelet Count 296 thou/uL (130-400); RBC Distribution Width 12.4 % (11.5-14.5); Red Blood Cell (RBC) Count 3.18 mill/uL (4.20-5.40); White Blood Cell (WBC) Count 5.8 thou/uL (4.8-10.8)
[2020-11-30] MEDS ORDERED: Lidocaine 1% PF 5 ML VIAL ONE (14:08)
[2020-11-30] MEDS ORDERED: Sodium Bicarbonate 2.5 MEQ/5 ML VIAL ONE (14:08)
[2020-11-30 14:15] LABS: INR-International Normal Ratio 1.1; PTT 29.4 sec (22.9-36.1); Prothrombin Time 13.9 sec (12.0-14.7)
[2020-11-30 15:19] VITALS: BP 110/70; TEMP 99.3
--- NOTE | 2020-11-30 15:21 | ULT ---
Ultrasound-guided paracentesis: HISTORY: Pancreatic adenocarcinoma. Ascites. FINDINGS: Informed consent obtained prior to the procedure. Preprocedural imaging demonstrated intrap eritoneal free fluid. An area was marked in the left lower quadrant, and then meticulously prepped and draped in normal nury rile fashion and anesthetized with 1% buffered lidocaine. With direct sonographic guidance, a 19-gauge needle and 5 Maltese Yueh catheter were advanced into the abdomen. After the return of fluid, the catheter was advanced, and the needle was removed. Approximately 4 L of clear straw-colored fluid was aspirated. The introducer sheath was removed, and hemostasis was achieved with direct pressure. A dry sterile dressing was placed. The patient tolerated the procedure well and without immediate complication. IMPRESSION: Technically successful ultrasound-guided paracentesis.
== END 2020-11-30 15:05 | disposition home or self-care (01) ==
LOC: ULT 13:50
PROVIDERS: ATTEND Internal Medicine Medical Oncology
PROC: 0W9G3ZZ Drainage of Peritoneal Cavity, Percutaneous Approach (ICD-10-PCS; principal; 2020-11-30)
PROC: BW40ZZZ Ultrasonography of Abdomen (ICD-10-PCS; principal; 2020-11-30)
DX: R18.8 Other ascites (principal); C25.9 Malignant neoplasm of pancreas, unspecified; C50.911 Malignant neoplasm of unspecified site of right female breast; K85.90 Acute pancreatitis without necrosis or infection, unspecified
CPT/HCPCS: 49083; 85025; 85610; 85730

== ENCOUNTER 2020-12-02 22:01 | Emergency (ER) | payer OTHER, SELFPAY ==
[~2020-12-02 22:01] MED LIST changes: +Iopamidol-370 76% 500 ML 1 ML ONE; -Lidocaine 1% PF 5 ML VIAL ONE; -Sodium Bicarbonate 2.5 MEQ/5 ML VIAL ONE
[2020-12-02 23:50] LABS: #Lymphocytes 1.8 thou/uL (1.20-3.40); #Monocytes 0.4 thou/uL (0.11-0.59); #Neutrophils 2.7 thou/uL (1.40-6.50); %Basophils 0.5 % (0.0-1.0); %Eosinophils 0.6 % (0.0-10.0); %Lymphocytes 36.5 % (21.0-51.0); %Monocytes 8.9 % (0.0-10.0); %Neutrophils 53.6 % (42.0-75.0); Hemoglobin 11.2 g/dL (12.0-16.0); Mean Corpuscular HGB CONC 33.8 g/dL (32.0-36.0); Mean Corpuscular Hemoglobin 34.8 pg (27.0-31.0); Mean Platelet Volume 7.7 fL (7.4-10.4); Platelet Count 178 thou/uL (130-400); RBC Distribution Width 12.5 % (11.5-14.5); Red Blood Cell (RBC) Count 3.21 mill/uL (4.20-5.40)
[2020-12-03 00:11] LABS: ALT (SGPT) 30 U/L (8-55); AST (SGOT) 56 U/L (5-34); Albumin 2.7 g/dL (3.4-4.8); Alkaline Phosphatase 271 U/L (40-110); Anion Gap 12 mmol/L (10-20); BUN (Urea Nitrogen) 8 mg/dL (9.8-20.1); Bilirubin, Total 0.4 mg/dL (0.2-1.2); Calc. Creatinine Clearance 0 mL/min (70-130); Calcium 7.9 mg/dL (7.8-10.44); Carbon Dioxide 24 mmol/L (23-31); Chloride 98 mmol/L (98-107); Globulin 3.4 g/dL (2.4-3.5); Glucose 101 mg/dL (80-115); Lipase 16 U/L (8-78); Potassium 3.8 mmol/L (3.5-5.1); Protein, Total 6.1 g/dL (5.8-8.1); Sodium 130 mmol/L (136-145)
[2020-12-03 00:14] LABS: INR-International Normal Ratio 0.9; Prothrombin Time 12.5 sec (12.0-14.7)
[2020-12-03 00:19] LABS: Bilirubin Negative (Negative); Blood, Urine Negative (Negative); Clarity Clear (Clear); Glucose, Urine (Dipstick) Normal (Negative); Ketone, Urine Negative (Negative); Leukocyte Negative Leu/uL (Negative); Nitrite Negative (Negative); Protein, Urine (Dipstick) Negative (Neg-Trace); Specific Gravity, Urine 1.005 (1.002-1.036); Urobilinogen Normal mg/dL (Less than 2)
--- NOTE | 2020-12-03 08:55 | CT ---
PRELIMINARY REPORT/[facility]/EMERGENCY AFTER HOURS PROCEDURE: EXAM: CT Abdomen and Pelvis with Intravenous Contrast CLINICAL HISTORY: F70, TOOK OFF TWO BAGS OF FLUID SUNDAY. IS HAVING SOB AND WEAKNESS THAT IS GETTING WORSE. PANCRATIC CA THAT IS SPREADING TECHNIQUE: Axial computed tomography images of the abdomen and pelvis with intravenous contrast. CONTRAST: With; ISOVUE 370,70mL COMPARISON: CT\NV\SR - CT CHEST ABD PELVIS W CON - 10/06/2020 09:[address] [address] [address] - CT ABDOMEN PELVIS W CON - 05/10/2020 02:[address]\SR - CT CHEST ABD PELVIS W CON - 01/09/2020 11:25 AM CDT FINDINGS: LUNG BASES: Incompletely visualized bilateral moderate pleural effusions with simple fluid density. LIVER: Severe hepatic steatosis. GALLBLADDER AND BILE DUCTS: Surgically absent gallbladder. Small focus of pneumobilia within the comm on bile duct and into the central left intrahepatic biliary duct. PANCREAS: Increased fat stranding surrounding the pancreatic head. Increased size of soft tissue conf luence of the pancreatic head surrounding the SMA, IVC, and proximal superior mesenteric vein and leeanne n portal vein. SPLEEN: Unchanged small splenule at the inferior margin of the spleen. ADRENAL GLANDS: Unchanged low density 1 cm left adrenal gland nodule, likely adenoma. KIDNEYS, URETERS, AND BLADDER: Unchanged left simple fluid density renal cyst. STOMACH AND BOWEL: Moderate colonic stool burden. Unchanged ventral abdominal hernia containing loops of small bowel without strangulation. Postoperative appearance of the stomach and proximal small bowel. APPENDIX: No CT evidence for appendicitis. PERITONEUM: Large volume ascites. LYMPH NODES: Enlarged numerous central necrotic lymph nodes within the lesly hepatis and superior leila tral mesentery. Diffuse lymphadenopathy throughout the retroperitoneum and central mesentery. REPRODUCTIVE: Unremarkable as visualized. VASCULATURE: No aneurysm BONES: No fracture or suspicious osseous abnormality. ABDOMINAL WALL AND SOFT TISSUES: Mild anasarca. MISCELLANEOUS: Incompletely visualized eventration of the left hemidiaphragm. IMPRESSION: 1. Worsening metastatic disease with diffuse mesenteric lymphadenopathy, large ascites, and moderate pleural effusions. 2. Severe hepatic steatosis. 3. Small focus of pneumobilia within the common bile duct and into the central left intrahepatic frantz iary duct. This is likely secondary to hepaticojejunostomy but may also be related to local progress ion of disease. ELECTRONICALLY SIGNED BY: Joe Neumann DO Dec 03, 2020 12:43:43 AM [employer]AL [employer] ARCHITECT FINAL REPORT EMERGENT AFTER HOURS CT OF THE ABDOMEN AND PELVIS WITH CONTRAST: COMPARISON: 05/10/2020. FINDINGS/IMPRESSION: I agree with the findings and impression given in the preliminary report per [facility] physici an. 1. There is metastatic disease with enlarged lymph nodes in the retroperitoneum and surrounding the pancreas. 2. There is worsening of the patient's ascites with areas of nodularity amongst the mesentery concer sally for carcinomatosis. 3. Fatty liver. 4. Bilateral pleural effusions. POS: OFF
== END 2020-12-03 02:42 | disposition home or self-care (01) ==
LOC: ERS 22:01
DX: C78.89 Secondary malignant neoplasm of other digestive organs (principal); R18.0 Malignant ascites; C77.9 Secondary and unspecified malignant neoplasm of lymph node, unspecified; C50.919 Malignant neoplasm of unspecified site of unspecified female breast; E87.1 Hypo-osmolality and hyponatremia; R06.00 Dyspnea, unspecified; Z79.899 Other long term (current) drug therapy
CPT/HCPCS: 49083; 74177; 80053; 81003; 83690; 83880; 85025; 85610; 85730; Q9967

== ENCOUNTER 2020-12-13 15:31 | Outpatient (CLI) | payer SELFPAY ==
[2020-12-13 16:11] LABS: #Eosinphils 0.1 10x3/uL (0.0-0.5); #Monocytes 0.7 10x3/uL (0.0-1.1); #Neutrophils 7.9 10x3/uL (1.5-8.4); %Basophils 0.3 % (0.0-2.0); %Eosinophils 0.6 % (0.0-6.0); %Lymphocytes 12.6 % (18.0-47.0); %Neutrophils 79.1 % (40.0-75.0); Hemoglobin 11.8 g/dL (12.0-15.5); Mean Corpuscular HGB CONC 33.1 g/dL (32.0-36.0); Mean Corpuscular Hemoglobin 34.2 pg (27.0-33.0); Mean Corpuscular Volume 103.5 fl (81.6-98.3); Mean Platelet Volume 10.4 fl (7.4-10.4); Platelet Count 300 10x3/uL (150-450); RBC Distribution Width 15.3 % (11.5-14.5); Red Blood Cell (RBC) Count 3.45 10x6/uL (3.90-5.03)
[2020-12-13 16:30] LABS: Anion Gap 12 mmol/L (10-20); BUN (Urea Nitrogen) 10 mg/dL (9.8-20.1); Calc. Creatinine Clearance 0 mL/min (70-130); Calcium 7.6 mg/dL (7.8-10.44); Carbon Dioxide 23 mmol/L (23-31); Chloride 100 mmol/L (98-107); Glucose 169 mg/dL (80-115); Potassium 4.8 mmol/L (3.5-5.1); Sodium 130 mmol/L (136-145)
[2020-12-14 02:30] LABS: SARS-CoV-2 PCR by NAA Not Detected (NotDetected)
== END 2020-12-13 15:32 | disposition home or self-care (01) ==
LOC: LABBT 15:31
PROVIDERS: ATTEND Specialist
DX: Z01.812 Encounter for preprocedural laboratory examination (principal); K43.2 Incisional hernia without obstruction or gangrene; Z20.822 Contact with and (suspected) exposure to COVID-19; Z85.07 Personal history of malignant neoplasm of pancreas; Z85.3 Personal history of malignant neoplasm of breast
CPT/HCPCS: 80048; 85025; 87635; U0003; U0005

== ENCOUNTER 2020-12-14 07:39 | Day surgery (SDC) | payer SELFPAY ==
[2020-12-13 14:36] VITALS: BMI 26.1
[2020-12-14] MEDS ORDERED: Acetaminophen 500 MG TAB ONE (08:20)
[2020-12-14] MEDS ORDERED: Tranexamic Acid 1,000 MG/10 ML VIAL ONE (08:20)
[2020-12-14] MEDS ORDERED: Ketorolac Tromethamine 30 MG/ML VIAL ONE (08:20)
[2020-12-14] MEDS ORDERED: Fentanyl 100 MCG/2 ML VIAL ONE (09:15)
[2020-12-14] MEDS ORDERED: XYLOCAINE 2%-EPI 1:100,000 20 ML VIAL ONE (09:29)
[2020-12-14] MEDS ORDERED: Lidocaine 1% (PF) 30 ML VIAL ONE (09:29)
[2020-12-14] MEDS ORDERED: Bupivacaine 0.25% HCL 30 ML VIAL ONE (09:29)
[2020-12-14] MEDS ORDERED: Scopolamine 1.5 mg/72 hour Patch ONE (09:54)
[2020-12-14] MEDS ORDERED: Dexamethasone 20 MG/5 ML VIAL ONE (10:14)
[2020-12-14] MEDS ORDERED: Ondansetron PF 4 MG/2 ML Vial ONE (10:14)
[2020-12-14] MEDS ORDERED: Calcium Chloride 1 GM/10 ML Abboject SYRINGE ONE (10:14)
[2020-12-14] MEDS ORDERED: PHENYLEPHRINE-NS 100 MCG/ML 10 ML SYRINGE ONE (10:14)
[2020-12-14] MEDS ORDERED: Lidocaine 1% PF 5 ML VIAL ONE (10:14)
[2020-12-14] MEDS ORDERED: PROPOFOL 200 MG/20 ML VIAL ONE (10:14)
[2020-12-14] MEDS ORDERED: Rocuronium Bromide 10 MG/ML (10ML VIAL) ONE (10:14)
[2020-12-14] MEDS ORDERED: Glycopyrrolate 0.2 MG/ML 5 ML SYRINGE ONE (10:14)
[2020-12-14] MEDS ORDERED: SUGAMMADEX SODIUM 200 MG/2 ML VIAL ONE (11:01)
[2020-12-14] MEDS ORDERED: Promethazine HCl 25 MG/ML VIAL ONE (11:38)
== END 2020-12-14 13:51 | disposition home or self-care (01) ==
LOC: SDC 07:39
PROVIDERS: ATTEND Specialist
PROC: 0WHG43Z Insertion of Infusion Device into Peritoneal Cavity, Percutaneous Endoscopic Approach (ICD-10-PCS; principal; 2020-12-14)
DX: C25.9 Malignant neoplasm of pancreas, unspecified (principal); R18.0 Malignant ascites; K43.2 Incisional hernia without obstruction or gangrene; Z85.3 Personal history of malignant neoplasm of breast; Z79.01 Long term (current) use of anticoagulants; Z79.811 Long term (current) use of aromatase inhibitors; Z79.899 Other long term (current) drug therapy
CPT/HCPCS: 71045; J0690; J1100; J1885; J2001; J2405; J2550; J2704; J3010; S0020

== ENCOUNTER 2020-12-20 08:28 | Inpatient (IN) | payer MEDICAID, SELFPAY ==
[2020-12-20] MEDS ORDERED: Cefepime 2 GM VIAL ONE ×2 (08:56→09:22)
[2020-12-20] MEDS ORDERED: Piperacillin/Tazobactam 3.375 GM VIAL ONE (08:56)
[2020-12-20] MEDS ORDERED: Vancomycin 1.5 GRAM/300 ML BAG 1.5 GM in Premix Bag 1 BAG IVPB SCH (09:15)
[2020-12-20] MEDS ORDERED: Enoxaparin Sodium 80 MG/0.8 ML SYRINGE ONE (09:58)
[2020-12-20] MEDS ORDERED: Norepinephrine 8 MG/0.9% NS 250 ML ONE (10:07)
[2020-12-20] MEDS ORDERED: Acetaminophen 325 MG Suppository PR PRN (11:54)
[2020-12-20] MEDS ORDERED: Acetaminophen 325 MG/10.15 ML UDCUP PO PRN (11:54)
[2020-12-20] MEDS ORDERED: Ondansetron PF 4 MG/2 ML Vial IVP PRN (11:57)
[2020-12-20] MEDS ORDERED: Ondansetron ODT 4 MG TAB PO PRN (11:57)
[2020-12-20] MEDS ORDERED: Electrolyte Replacement Protocol FS PRN (12:15)
[2020-12-20] MEDS ORDERED: Electrolyte Replacement Protocol 1 EACH FS SCH (12:15)
[2020-12-20] MEDS: Albumin 25% 25 GM/100 ML BOT IVPB SCH ×2 (14:31→21:58)
[2020-12-20] MEDS: Sodium Chloride 0.9% 1,000 ML IV SCH (14:31)
[2020-12-20 14:40] VITALS: BMI 31.2
[2020-12-20] MEDS: Famotidine 40 MG/5 ML Oral Suspension PER TUBE SCH (20:07)
[2020-12-20] MEDS: Senokot S 8.6-50 MG TAB PO SCH (20:10)
[2020-12-20] MEDS: Famotidine/PF 20 mg/2ml Vial SLOW IVP SCH (20:10)
[2020-12-20] MEDS: Acetaminophen 325 MG TAB PO PRN (20:16)
[2020-12-21] MEDS: Norepinephrine 8 MG/0.9% NS 250 ML IVPB PRN ×3 (00:45→18:34)
[2020-12-21] MEDS ORDERED: Magnesium 2 GM/50 ML 2 GM in Premix Bag 1 BAG IVPB SCH (05:00)
[2020-12-21] MEDS: Albumin 25% 25 GM/100 ML BOT IVPB SCH ×2 (05:48→12:41)
[2020-12-21 06:34] VITALS: BP 104/62
[2020-12-21] MEDS ORDERED: FLU VACC QS2020-21(65YR UP)/PF 240 MCG/0.7 ML SYRINGE IM ONE (09:00)
[2020-12-21] MEDS: Sodium Chloride 0.9% 1,000 ML IV SCH (09:38)
[2020-12-21] MEDS: Famotidine 40 MG/5 ML Oral Suspension PER TUBE SCH ×2 (09:40→23:12)
[2020-12-21] MEDS: Senokot S 8.6-50 MG TAB PO SCH ×2 (09:40→20:12)
[2020-12-21] MEDS: Famotidine/PF 20 mg/2ml Vial SLOW IVP SCH ×2 (09:40→20:12)
[2020-12-21] MEDS ORDERED: guaiFENesin ER 600 MG TAB PO SCH (11:15)
[2020-12-21] MEDS ORDERED: Enoxaparin Sodium 80 MG/0.8 ML SYRINGE SC SCH ×2 (12:00→21:00)
[2020-12-21] MEDS: guaiFENesin ER 600 MG TAB PO SCH ×2 (12:40→20:12)
[2020-12-21] MEDS: Enoxaparin Sodium 80 MG/0.8 ML SYRINGE SC SCH ×2 (12:43→20:10)
[2020-12-21] MEDS: Acetaminophen 325 MG TAB PO PRN (19:18)
[2020-12-22] MEDS: Acetaminophen 325 MG TAB PO PRN (05:08)
[2020-12-22] MEDS ORDERED: Potassium Chloride 20 MEQ TAB PO SCH (06:30)
[2020-12-22] MEDS: Norepinephrine 8 MG/0.9% NS 250 ML IVPB PRN (08:10)
[2020-12-22] MEDS: Famotidine/PF 20 mg/2ml Vial SLOW IVP SCH ×2 (08:12→20:29)
[2020-12-22] MEDS: guaiFENesin ER 600 MG TAB PO SCH ×2 (08:12→20:30)
[2020-12-22] MEDS: Enoxaparin Sodium 80 MG/0.8 ML SYRINGE SC SCH ×2 (08:12→20:29)
[2020-12-22] MEDS: Senokot S 8.6-50 MG TAB PO SCH ×2 (08:12→20:29)
[2020-12-22] MEDS: Sodium Chloride 0.9% 1,000 ML IV SCH (08:32)
[2020-12-22] MEDS: Famotidine 40 MG/5 ML Oral Suspension PER TUBE SCH ×2 (08:32→20:20)
[2020-12-22] MEDS ORDERED: Lidocaine 5% Patch TD SCH (09:00)
[2020-12-22] MEDS: Midodrine HCl 5 MG TAB PO SCH ×2 (15:30→20:29)
[2020-12-22] MEDS: Lidocaine 5% Patch TD SCH (20:30)
[2020-12-22] MEDS ORDERED: Transdermal Patch Removal TOP SCH (21:00)
[2020-12-23] MEDS: Acetaminophen 325 MG TAB PO PRN ×2 (06:36→16:07)
[2020-12-23] MEDS: Senokot S 8.6-50 MG TAB PO SCH ×2 (08:52→21:54)
[2020-12-23] MEDS: guaiFENesin ER 600 MG TAB PO SCH ×2 (08:52→21:54)
[2020-12-23] MEDS: Famotidine/PF 20 mg/2ml Vial SLOW IVP SCH ×2 (08:52→21:54)
[2020-12-23] MEDS: Midodrine HCl 5 MG TAB PO SCH ×3 (08:52→21:53)
[2020-12-23] MEDS: Norepinephrine 8 MG/0.9% NS 250 ML IVPB PRN (08:53)
[2020-12-23] MEDS: Famotidine 40 MG/5 ML Oral Suspension PER TUBE SCH ×2 (08:53→20:30)
[2020-12-23] MEDS: Enoxaparin Sodium 80 MG/0.8 ML SYRINGE SC SCH ×2 (08:53→21:54)
[2020-12-23] MEDS: Transdermal Patch Removal TOP SCH (09:00)
[2020-12-23] MEDS ORDERED: Lidocaine 5% Patch TD SCH (09:00)
[2020-12-23] MEDS: Lidocaine 5% Patch TD SCH (22:01)
[2020-12-24] MEDS ORDERED: Potassium Chloride 20 MEQ TAB PO SCH (06:30)
[2020-12-24 07:34] VITALS: TEMP 97.8
[2020-12-24] MEDS: Famotidine/PF 20 mg/2ml Vial SLOW IVP SCH (08:02)
[2020-12-24] MEDS: guaiFENesin ER 600 MG TAB PO SCH (08:02)
[2020-12-24] MEDS: Senokot S 8.6-50 MG TAB PO SCH (08:02)
[2020-12-24] MEDS: Midodrine HCl 5 MG TAB PO SCH ×2 (08:02→14:27)
[2020-12-24] MEDS: Enoxaparin Sodium 80 MG/0.8 ML SYRINGE SC SCH (08:02)
[2020-12-24] MEDS: Famotidine 40 MG/5 ML Oral Suspension PER TUBE SCH (08:02)
[2020-12-24] MEDS: Transdermal Patch Removal TOP SCH (08:03)
[2020-12-24] MEDS: Acetaminophen 325 MG TAB PO PRN (14:27)
== END 2020-12-24 16:00 | disposition hospice, home (50) | DRG 175 ==
LOC: ERS 08:28 → CCU 11:08
PROVIDERS: ADMIT Internal Medicine; ATTEND Family Medicine
PROC: 3E033XZ Introduction of Vasopressor into Peripheral Vein, Percutaneous Approach (ICD-10-PCS; principal; 2020-12-20)
PROC: 3E03317 Introduction of Other Thrombolytic into Peripheral Vein, Percutaneous Approach (ICD-10-PCS; 2020-12-20)
PROC: 0W9G30Z Drainage of Peritoneal Cavity with Drainage Device, Percutaneous Approach (ICD-10-PCS; 2020-12-21)
DX: I26.99 Other pulmonary embolism without acute cor pulmonale (principal); J96.01 Acute respiratory failure with hypoxia; Z51.5 Encounter for palliative care; I21.A1 Myocardial infarction type 2; C25.9 Malignant neoplasm of pancreas, unspecified; E87.1 Hypo-osmolality and hyponatremia; R18.0 Malignant ascites; I82.401 Acute embolism and thrombosis of unspecified deep veins of right lower extremity; E87.2 Acidosis; C77.2 Secondary and unspecified malignant neoplasm of intra-abdominal lymph nodes; Z20.822 Contact with and (suspected) exposure to COVID-19; I34.0 Nonrheumatic mitral (valve) insufficiency; I50.811 Acute right heart failure; I95.9 Hypotension, unspecified; Z90.49 Acquired absence of other specified parts of digestive tract; Z90.11 Acquired absence of right breast and nipple
CPT/HCPCS: 0240U; 36415; 71045; 71275; 80053; 82533; 82553; 83605; 83690; 83735; 83880; 83935; 84100; 84300; 84443; 84484; 85007; 85025; 85027; 85379; 85610; 85730; 87040; 93005; 93306; 93970; 94760; 96365; 96366; 96367; 96368; 96372; J0692; J1650; J2405; J2543; J2997; J3370; J3475; P9047; S0028